=== PATIENT | male | born 1945 | race Caucasian/White ===

== ENCOUNTER 2017-05-09 21:38 | Emergency (ER) | payer OTHER ==
[~2017-05-09] VITALS: Ht 162.6 cm; Wt 59.5 kg
[~2017-05-09 21:38] MED LIST: ACET500C35; ALBU0.5N2 NEB; ASCO10003 PO; ASPEC81 PO; B-COTAB18 PO; CMBIN INH; CRDCD180 PO; LORA-741 PO; LOSA1TAB38 PO; OFLO0.3S OP; OMEGCAP2 PO; PRED1SUS3 OPL; SENN-65 PO; SYMIN160 INH; TRAM-10 PO
[2017-05-09 21:44] VITALS: TEMP 36.7; Ht 162.6 cm; Wt 59.5 kg
[2017-05-09] MEDS ORDERED: ALUMINUM/MAGNESIUM SUSP 30 ML UDC PO STA (21:58)
[2017-05-09] MEDS ORDERED: LIDOCAINE HCL 2% VISC SOLN 20 ML UDC PO STA (21:58)
[2017-05-09] MEDS ORDERED: ASPI81TA28 PO (22:09)
[2017-05-09] MEDS ORDERED: ADVIN25/60 INH (22:11)
[2017-05-09] MEDS ORDERED: DILT-113 PO (22:12)
[2017-05-09] MEDS ORDERED: IPRA1AER2 INH (22:14)
[2017-05-09] MEDS ORDERED: DOCU-105 PO (22:21)
[2017-05-09] MEDS ORDERED: LINA1CAP PO (22:22)
[2017-05-09] MEDS ORDERED: DICY20TA10 PO (22:23)
[2017-05-09] MEDS ORDERED: DILT180C96 PO (22:25)
--- NOTE | 2017-05-09 22:41 | DIAGNOSTIC IMAGING REPORT ---
SINGLE VIEW CHEST CLINICAL HISTORY: Atypical chest pain. FINDINGS: An AP, portable, upright chest radiograph is compared to study dated 12/30/2014. The examination is degraded by portable technique and patient rotation. The cardiomediastinal silhouette is unremarkable. There is atherosclerotic calcification of the thoracic aorta. The lungs and pleural spaces are clear. No pneumothorax is seen. The skeletal structures are osteopenic. There are healed bilateral rib fractures. Chronic posttraumatic change is seen in the left humeral shaft. IMPRESSION: No acute cardiopulmonary abnormality. Electronically signed by: Brandan Anaya M.D. 05/09/2017 10:40 PM Dictated Date/Time: 05/09/2017 10:37 PM
[2017-05-09 22:42] VITALS: O2SAT 98
[2017-05-09 22:51] LABS: BASO % 0.2 %; BASO ABS # 0.01 K/uL (0-0.2); COMPLETE YES; EOS % 2.9 %; HEMATOCRIT 43.4 % (42-52); IG% 0.2 %; LYMPH % 17.3 %; LYMPH ABS # 1.06 K/uL (1.2-3.4); MEAN CELL VOLUME 94.8 fL (80-100); MEAN CORPUSCULAR HEMOGLOBIN 32.8 pg (25-34); MEAN CORPUSCULAR HGB CONC 34.6 g/dl (32-36); MEAN PLATELET VOLUME 7.9 fL (7.4-10.4); MONO % 10.9 %; NEUT % 68.5 %; PLATELET COUNT 238 K/uL (130-400); RED BLOOD COUNT 4.58 M/uL (4.7-6.1); WHITE BLOOD COUNT 6.14 K/uL (4.8-10.8)
[2017-05-09 23:08] LABS: ALT/SGPT 18 U/L (12-78); BLOOD UREA NITROGEN 8 mg/dl (7-18); BUN/CREATININE RATIO 8.5 (10-20); CALCIUM 8.7 mg/dl (8.5-10.1); CARBON DIOXIDE 22 mmol/L (21-32); CHLORIDE 111 mmol/L (98-107); CREATININE 0.93 mg/dl (0.60-1.40); GLUCOSE 146 mg/dl (70-99); POTASSIUM 3.7 mmol/L (3.5-5.1); SODIUM 143 mmol/L (136-145)
[2017-05-09 23:13] LABS: ALKALINE PHOSPHATASE 57 U/L (45-117); AST/SGOT 14 U/L (15-37)
[2017-05-09] MEDS ORDERED: PANTOprazole SOD 40 MG TAB PO STA (23:22)
[2017-05-10 02:04] VITALS: BP 172/90; PULSE 77; O2SAT 96
[2017-05-10] MEDS ORDERED: PANTOprazole SOD 40 MG TAB ONE (02:14)
[2017-05-10] MEDS ORDERED: PANT40TA PO (02:50)
--- NOTE | 2017-05-10 05:11 | EMERGENCY ROOM VISIT NOTE ---
History First contact with patient: 21:52 Chief Complaint: FOOD BOLUS Stated Complaint: FEELS LIKE SOMETHING IS STUCK IN THROAT, PHLEM Nursing Triage Summary: Patient ambulatory to triage, states "It feels like something is stuck in my throat. It only happens in the evenings. I do have heartburn and acidity. It has been going on for the last three days. I thought I'd better do something about it." Patient reports that 3-4 hours after eating, the sensation develops. Patient denies any vomiting. Patient is unsure if he is able to swallow his spit. History of Present Illness The patient is a 71 year old male who presents to the Emergency Room with complaints of discomfort in his throat for the past 3 nights after eating dinner. Patient states it feels like something is stuck in there but is able to swallow. Patient denies chest pain, dyspnea, fever, chills, cough, congestion, black or blood in the stool, excessive alcohol use. Patient quit smoking 3 years ago. No prior heart disease. In endoscopy 1 year ago and was normal per patient. Review of Systems See HPI for pertinent positives & negatives. A total of 10 systems reviewed and were otherwise negative. Past Medical/Surgical History Medical Problems: (1) History of rectal cancer (2) Incisional hernia (3) Partial obstruction of small bowel (4) Secondary malignant neoplasm of retroperitoneum Family History FHx: cancer Hypertension Social History Smoking Status: Former Smoker Marital Status: Housing Status: lives with significant other Occupation Status: retired Current/Historical Medications Scheduled Aspirin (Aspirin Ec), 81 MG PO DAILY B-Complex Vitamins (Vitamin B Complex), 1 TAB PO QAM Dicyclomine Hcl (Dicyclomine Hcl), 20 MG PO BID Diltiazem Hcl Coated Beads (Diltiazem Cd), 360 MG PO QAM Docusate Sodium (Dulcolax Stool Softener), 3 CAP PO HS Fluticasone Prop/Salmeterol (Advair Diskus 250/50 60 Dose), 1 PUFF INH BID Linaclotide (Linzess), 145 MCG PO DAILY Losartan Potassium (Cozaar), 100 MG PO QAM Aurora-3 Fatty Acids (Fish Oil), 1 CAP PO QAM Pantoprazole (Protonix), 40 MG PO DAILY Senna/Docusate Sod (Senokot S), 10 TABS PO HS PRN Scheduled PRN Ipratropium-Albuterol (Combivent Respimat), 1 PUFF INH Q4H PRN for Shortness of Breath Lorazepam (Ativan), 0.5 MG PO Q6H PRN for Anxiety Tramadol (Ultram), 50 MG PO Q8H PRN for Pain Allergies Coded Allergies: Morphine (Verified Adverse Reaction, Severe, "STOPPED RESPONDING", 05/09/17 ) Physical Exam Vital Signs Date Time Temp Pulse Resp B/P (MAP) Pulse Ox O2 Delivery O2 Flow Rate FiO2 05/10/17 02:04 77 16 172/90 96 Room Air 05/09/17 23:32 93 18 135/84 96 Room Air 05/09/17 22:56 89 05/09/17 22:50 89 20 149/80 98 Room Air 05/09/17 22:42 98 Room Air 05/09/17 22:42 98 Room Air 05/09/17 21:44 36.7 107 18 148/89 95 Room Air 05/09/17 21:44 95 Pain Rating (0-10): 2.0 Physical Exam VITALS: Vitals are noted on the nurse's note and reviewed by myself. Vital signs hypertensive GENERAL: Pleasant male, in no acute distress, nondiaphoretic, well-developed well-nourished. SKIN: The skin was without rashes, erythema, edema, or bruising. There is no tenting of the skin. Capillary reflex less than 2 seconds. HEAD: Normocephalic atraumatic. EARS: External auditory canals clear, tympanic membranes pearly penn without erythema or effusion bilaterally. EYES: Pupils equal round and reactive to light and accommodation. Conjunctivae without injection, sclerae without icterus. Extraocular movements intact. NOSE: Patent, turbinates without inflammation or discharge. MOUTH: Mucous membranes moist. Pharynx without erythema or exudate. Uvula midline. Airway patent. Tongue does not deviate. NECK: Supple without nuchal rigidity. No lymphadenopathy. No thyromegaly. Cervical spine is nontender. No JVD. HEART: Regular rate and rhythm LUNGS: Clear to auscultation bilaterally without wheezes, rales or rhonchi. No dullness to percussion. No retractions or accessory muscle use. ABDOMEN: Positive bowel sounds x 4. Normal tympanic percussion. Soft, nontender, without masses or organomegaly. Verma sign negative. No guarding or rebound tenderness. MUSCULOSKELETAL: No muscle atrophy, erythema, or edema noted. NEURO: Patient was alert and oriented to person place and time. Normal sensation to light and sharp touch. No focal neurological deficits. Medical Decision & Procedures Laboratory Results 05/09/17 22:40 Red Blood Count 4.58, Mean Corpuscular Volume 94.8, Mean Corpuscular Hemoglobin 32.8, Mean Corpuscular Hemoglobin Concent 34.6, Mean Platelet Volume 7.9, Neutrophils (%) (Auto) 68.5, Lymphocytes (%) (Auto) 17.3, Monocytes (%) (Auto) 10.9, Eosinophils (%) (Auto) 2.9, Basophils (%) (Auto) 0.2, Neutrophils # (Auto ) 4.21, Lymphocytes # (Auto) 1.06, Monocytes # (Auto) 0.67, Eosinophils # (Auto ) 0.18, Basophils # (Auto) 0.01 05/09/17 22:40 Test 05/09/17 22:40 05/10/17 02:05 White Blood Count 6.14 K/uL (4.8-10.8) Red Blood Count 4.58 M/uL (4.7-6.1) Hemoglobin 15.0 g/dL (14.0-18.0) Hematocrit 43.4 % (42-52) Mean Corpuscular Volume 94.8 fL (80-100) Mean Corpuscular Hemoglobin 32.8 pg (25-34) Mean Corpuscular Hemoglobin Concent 34.6 g/dl (32-36) Platelet Count 238 K/uL (130-400) Mean Platelet Volume 7.9 fL (7.4-10.4) Neutrophils (%) (Auto) 68.5 % Lymphocytes (%) (Auto) 17.3 % Monocytes (%) (Auto) 10.9 % Eosinophils (%) (Auto) 2.9 % Basophils (%) (Auto) 0.2 % Neutrophils # (Auto) 4.21 K/uL (1.4-6.5) Lymphocytes # (Auto) 1.06 K/uL (1.2-3.4) Monocytes # (Auto) 0.67 K/uL (0.11-0.59) Eosinophils # (Auto) 0.18 K/uL (0-0.5) Basophils # (Auto) 0.01 K/uL (0-0.2) RDW Standard Deviation 46.3 fL (36.4-46.3) RDW Coefficient of Variation 13.5 % (11.5-14.5) Immature Granulocyte % (Auto) 0.2 % Immature Granulocyte # (Auto) 0.01 K/uL (0.00-0.02) Anion Gap 10.0 mmol/L (3-11) Est Creatinine Clear Calc Drug Dose 60.2 ml/min Estimated GFR () 94.7 Estimated GFR (Non- 81.7 BUN/Creatinine Ratio 8.5 (10-20) Calcium Level 8.7 mg/dl (8.5-10.1) Total Bilirubin 0.2 mg/dl (0.2-1) Direct Bilirubin 0.1 mg/dl (0-0.2) Aspartate Amino Transf (AST/SGOT) 14 U/L (15-37) Alanine Aminotransferase (ALT/SGPT) 18 U/L (12-78) Alkaline Phosphatase 57 U/L (45-117) Troponin I < 0.015 ng/ml (0-0.045) Total Protein 6.1 gm/dl (6.4-8.2) Albumin 2.8 gm/dl (3.4-5.0) Bedside Troponin I < 0.030 ng/ml (0-0.045) Medications Administered Medications (Trade) Dose Ordered Sig/Nela Route Start Time Stop Time Status Last Admin Dose Admin Lidocaine HCl (Viscous Lidocaine 2% Soln) 10 ml NOW STAT PO 05/09/17 21:58 05/09/17 22:00 DC 05/09/17 22:47 10 ML Al Hydroxide/Mg Hydroxide (Maalox Susp) 30 ml NOW STAT PO 05/09/17 21:58 05/09/17 22:00 DC 05/09/17 22:47 30 ML ED Course Prior records/ancillary studies reviewed. Triage Nursing notes reviewed. Additional history obtained from family. The patient's history was concerning for throat discomfort Differential diagnosis: Etiologies such as esophagitis, GERD, cardiac ischemia, aortic dissection, pulmonary embolism, pneumonia, pneumothorax, musculoskeletal, infections, pericarditis, myocarditis, esophageal rupture, gastrointestinal, as well as others were entertained. Physical examination: As above. ER treatment provided: GI cocktail, Protonix On reassessment the patient felt better. Diagnostic interpretation by me: The electrocardiogram was negative for pathologic change. Normal sinus, normal intervals, no acute ST-T wave changes. Impression normal sinus rhythm interpreted by myself The labs revealed 2 troponins that are negative 2 hours apart Imaging studies: Chest x-ray as above CLINICAL HISTORY: Atypical chest pain. FINDINGS: An AP, portable, upright chest radiograph is compared to study dated 12/30/2014. The examination is degraded by portable technique and patient rotation. The cardiomediastinal silhouette is unremarkable. There is atherosclerotic calcification of the thoracic aorta. The lungs and pleural spaces are clear. No pneumothorax is seen. The skeletal structures are osteopenic. There are healed bilateral rib fractures. Chronic posttraumatic change is seen in the left humeral shaft. IMPRESSION: No acute cardiopulmonary abnormality. Electronically signed by: Brandan Anaya M.D. 05/09/2017 10:40 PM Exam and history seem consistent with esophagitis. Patient felt much better after being medicated as above. His symptoms had resolved. He was advised to follow-up with his GI doctor and family care for further workup. He may need an updated EGD. He was advised take Protonix as directed and avoid acidic foods. He was advised to return to the ER immediately for chest pain, difficulty breathing, black or blood in the stool, worsening signs or symptoms or as needed. Patient had a normal EKG in 2 troponins that were negative that were 2 hours apart.By the evaluation outlined above emergent etiologies such as cardiac ischemia, aortic dissection, pulmonary embolism, pneumonia, pneumothorax , infections, pericarditis, myocarditis, gastrointestinal, as well as others were deemed relatively unlikely. The pt informed about the findings as listed above. All questions were answered and pleased with the treatment. Return instructions were outlined and the patient was discharged in stable condition. Outpatient prescription management: Protonix Referral: The patient was referred back to GI and primary care physician for follow-up in 2 to 3 days for a recheck of the current condition. Case reviewed with my attending. Medical Decision As above Patient was found to have an elevated blood pressure and was referred to the family care for recheck and for possible further treatment. I attest that I have personally reviewed the patient's medications. Impression Primary Impression: Esophagitis Departure Information Dispostion Home / Self-Care Condition GOOD Prescriptions Pantoprazole (Protonix) 40 Mg Tab 40 MG PO DAILY for 14 Days, #14 TAB Prov: Franca Haro .SRIKANTH 05/10/17 Forms WORK / SCHOOL INSTRUCTIONS, HOME CARE DOCUMENTATION FORM, IMPORTANT VISIT INFORMATION Patient Instructions Esophagitis, My [facility] Additional Instructions Protonix 40 m tablet daily for next 2 weeks. Take this on an empty stomach. Try Maalox or Zantac for breakthrough symptoms for reflux. Avoid large meals. Avoid acidic foods. Rest and drink plenty of fluids as tolerated. Continue current medications. Avoid strenuous activities and anything that worsens your pain. Resume normal activities once your symptoms resolve. Return to the ER immediately for worsening or persistent chest pain, abdominal pain, black or blood in your stools, vomiting, fevers, chest pains, difficulty breathing, worsening of your condition, or as needed. Follow up with your primary physician and GI doctor in 2-3 days for a recheck of your current condition.
== END 2017-05-10 02:50 | disposition home or self-care (01) ==
LOC: C.EDB 21:41 → C.EDC 05-10 02:50
DX: K20.9 Esophagitis, unspecified (principal); Z82.49 Family history of ischemic heart disease and other diseases of the circulatory system; Z87.891 Personal history of nicotine dependence; Z79.82 Long term (current) use of aspirin

== ENCOUNTER → 2017-09-12 | Outpatient (CLI) | payer OTHER ==
[~2017-09-12] MED LIST changes: -ACET500C35; +ADVIN25/60 INH; -ALBU0.5N2 NEB; -ASCO10003 PO; -ASPEC81 PO; +ASPI81TA28 PO; -CMBIN INH; -CRDCD180 PO; +DICY20TA10 PO; +DILT180C58 PO; +DOCU-105 PO; +IPRA1AER2 INH; +LINA1CAP PO; -OFLO0.3S OP; -PRED1SUS3 OPL; -SYMIN160 INH
--- NOTE | 2017-09-12 09:33 | DIAGNOSTIC IMAGING REPORT ---
GI SERIES W/O KUB CLINICAL HISTORY: 72 years-old Male presenting with NAUSEA. TECHNIQUE: A standard air contrast upper GI series was performed. Spot images of the esophagus and stomach were obtained in multiple obliquities both upright and prone. COMPARISON: CT from 10/09/2011. FINDINGS: The patient swallowed barium without difficulty. The mid to distal esophagus demonstrates a focal outpouching consistent with diverticulum. This has a relatively wide neck in comparison to the overall width and height of the diverticulum. The diverticulum is located at the level of the left atrium. Tertiary contractions in intraesophageal reflux were noted during the examination, evidence of esophageal dysmotility. Gastroesophageal reflux also noted. Small hiatal hernia. No mucosal mass lesion is apparent. The stomach and proximal small bowel are normal in appearance. Fluoroscopy dosage (mGy): Not available. Fluoroscopy time: 1.2 minutes. Number of fluoroscopic spot images: 30. IMPRESSION: 1. 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 This would be a somewhat characteristic location for a traction diverticulum, however, no evidence of mediastinal fibrotic changes were evident on prior CT in 2010. A chest CT could be obtained if clinically indicated. Alternatively, this may represent a somewhat high location for a distal esophageal pulsion diverticulum. 2. Esophageal dysmotility. 3. Small hiatal hernia and gastroesophageal reflux. Electronically signed by: Jace Jennings M.D. 09/12/2017 9:32 AM Dictated Date/Time: 09/12/2017 9:29 AM
== END | disposition home or self-care (01) ==
LOC: C.RAD 08:29
PROVIDERS: ATTEND Nurse Practitioner Family
DX: K22.4 Dyskinesia of esophagus (principal); K44.9 Diaphragmatic hernia without obstruction or gangrene; K21.9 Gastro-esophageal reflux disease without esophagitis

== ENCOUNTER 2018-03-10 09:23 | Day surgery (SDC) | payer OTHER ==
[2018-03-03 11:12] VITALS: BMI 21.0
[~2018-03-10] VITALS: Ht 162.6 cm; Wt 56.4 kg
[~2018-03-10 09:23] MED LIST changes: +ATROPINE SULFATE 0.1 MG/ML 5ML SYR IV PRN; -B-COTAB18 PO; +CEFAZOLIN 2000MG IV PUSH 15 ML IV SCH; -DICY20TA10 PO; -DILT180C58 PO; +DILT180C96 PO; -DOCU-105 PO; +EpHEDrine SULFATE INJ 50 MG/ML AMP IV PRN; +FENTANYL CITRATE INJ 50 MCG/1 ML 2 ML VIAL IV PRN; +LACTATED RINGER'S 1000ML 1,000 ML IV SCH; -OMEGCAP2 PO; +ONDANSETRON INJ 2 MG/ML 2 ML VIAL IV PRN; +PHENYLEPHRINE 100MCG/ML 5ML SYR IV PRN
[2018-03-10 09:40] VITALS: BP_SYST 163; BP_SYST 175; BP_DIAS 111; PULSE 99; TEMP 37; O2SAT 96; Ht 162.6 cm; Wt 56.4 kg
[2018-03-10] MEDS ORDERED: ONDA-170 PO (10:08)
--- NOTE | 2018-03-10 10:51 | History & Physical Bridge Note ---
H&P Re-Evaluation Bridge Note: I have examined the patient, reviewed the History & Physical and in the interval since the performance of the History & Physical I have noted the following changes of clinical significance: No changes noted
[2018-03-10] MEDS ORDERED: FENTANYL CITRATE INJ 50 MCG/1 ML 2 ML VIAL ONE ×2 (12:11→14:34)
[2018-03-10] MEDS ORDERED: MIDAZOLAM HCL 1 MG/ML 2ML VIAL ONE (12:11)
[2018-03-10] MEDS ORDERED: CEFAZOLIN SOD 1 GM VIAL ONE (12:29)
[2018-03-10] MEDS ORDERED: HEPARIN SOD (PORCINE) 1000 UNIT/ML 10 ML VIAL ONE (12:29)
[2018-03-10] MEDS ORDERED: CONRAY 60% 50 ML VIAL ONE (12:29)
[2018-03-10] MEDS ORDERED: BUPIVACAINE 0.5 % 5 MG/1 ML MPF 30ML VIAL ONE (12:31)
[2018-03-10] MEDS ORDERED: PROPOFOL IV EMULSION 10 MG/ML 20 ML VIAL ONE (12:34)
[2018-03-10] MEDS ORDERED: LIDOCAINE HCL 2% 2 ML VIAL (20MG/ML) ONE (12:34)
[2018-03-10] MEDS ORDERED: ROCURONIUM BROMIDE 10 MG/ML 5 ML VIAL ONE (12:35)
[2018-03-10] MEDS ORDERED: DEXAMETHASONE SOD INJ 4 MG/ML VIAL ONE (12:36)
[2018-03-10] MEDS ORDERED: ONDANSETRON INJ 2 MG/ML 2 ML VIAL ONE (12:36)
[2018-03-10] MEDS ORDERED: NEOSTIGMINE METHYLSULFATE 5 MG/5 ML SYR ONE (13:15)
[2018-03-10] MEDS ORDERED: GLYCOPYRROLATE INJ 0.2 MG/ML VIAL ONE (13:15)
[2018-03-10] MEDS ORDERED: FLOSEAL HEMOSTATIC MATRIX 10ML TOP ONE (13:50)
[2018-03-10] MEDS ORDERED: SODIUM CHLORIDE 0.9% 1000ML 1,000 ML IV SCH (14:23)
--- NOTE | 2018-03-10 14:23 | [facility] Post Operative Brief Note ---
Immediate Operative Summary Operative Date March 10, 2018. Pre-Operative Diagnosis calculus of gallbladder, adenomyomatosis Post-Operative Diagnosis same as preop Procedure(s) Performed Laparoscopic Cholecystectomy Surgeon Dr. Brenton Urena Bridge Repairer Surgeon(s) None Estimated Blood Loss 30ML Findings Consistent with Post-Op Diagnosis Specimens Permanent Solution: A.)Gallbladder and Contents Anesthesia Type General Complication(s) none Disposition Disposition: Recovery Room / PACU
--- NOTE | 2018-03-10 14:27 | Discharge Instructions ---
Discharge Instructions Date of Service March 10, 2018. Admission Reason for Admission: Calculus Of Gallbladder Discharge Discharge Diagnosis / Problem: Same Discharge Goals Goal(s): Decrease discomfort Activity Recommendations Activity Limitations: per Instructions/Follow-up section Lifting Limitations: no more than 10 pounds (for 2 weeks) Shower/Bathe: tomorrow (shower only) . Instructions / Follow-Up Instructions / Follow-Up Post-Surgical ~ Discharge Instructions Activity Recommendations: - lifting limitation: (10 pounds for 2 weeks), - exercise/sex/sports limit: (nonstrenuous for 2 weeks), - driving or machine use limit: (none for 1 week), - Shower/bathe limit: (may shower beginning tomorrow) Diet: - Resume previous diet SPECIAL CARE INSTRUCTIONS: - May shower in 24 hours. Let water run over area and pat dry. - Leave steri strips on for one week. - Call the surgeon's office with any questions or concerns - - (ex. temperature higher than 101 degrees F, excessive bleeding or pain). MEDICATIONS: - Resume previous medications unless instructed otherwise by your surgeon. - Ibuprofen 600 mg every 6 hours with food - Newborn (hydrocodone/APAP) 1 every 4 hours, as needed for pain FOLLOW UP VISIT: - If not already scheduled, please call the office to schedule a two week follow-up appointment. Office number Current Hospital Diet Patient's current hospital diet: Discharge Diet Recommended Diet: Regular Diet Procedures Procedures Performed: Laparoscopic Cholecystectomy Pending Studies Studies pending at discharge: yes List of pending studies: Pathology Medical Emergencies . Who to Call and When: Medical Emergencies: If at any time you feel your situation is an emergency, please call 911 immediately. . Non-Emergent Contact Non-Emergency issues call your: Primary Care Provider, Surgeon Call Non-Emergent contact if: your pain is worsening, wound has increased redness, wound has increased pain . "Provider Documentation" section prepared by Brenton Urena. .
[2018-03-10] MEDS ORDERED: HYDROCODONE/ACETAMIN 5/325MG TAB PO PRN (14:30)
[2018-03-10] MEDS ORDERED: HYDROmorphone INJ 0.5 MG/0.5 ML SYR IV PRN (14:30)
[2018-03-10] MEDS ORDERED: ONDANSETRON INJ 2 MG/ML 2 ML VIAL IV PRN (14:30)
[2018-03-10] MEDS: HYDROmorphone INJ 0.5 MG/0.5 ML SYR IV PRN ×2 (15:15→15:20)
--- NOTE | 2018-03-10 15:30 | Anesthesiology Progress Note ---
Anesthesia Post Op Note Date & Time March 10, 2018 at 15:30 Vital Signs Vital Signs Past 12 Hours Date Time Temp Pulse Resp B/P (MAP) Pulse Ox O2 Delivery O2 Flow Rate FiO2 03/10/18 15:25 71 20 149/81 94 Room Air 03/10/18 15:15 71 22 136/65 96 Room Air 03/10/18 15:05 73 16 138/69 94 Room Air 03/10/18 14:55 70 22 158/89 96 Room Air 03/10/18 14:45 67 15 152/84 100 Oxymask 10 03/10/18 14:35 67 13 168/82 100 Oxymask 10 03/10/18 14:28 36.9 71 20 177/91 100 Oxymask 10 03/10/18 09:40 37 99 20 175/111 (132) 96 Room Air 163/111 (128) Notes Mental Status: alert / awake / arousable, participated in evaluation Pt Amnestic to Procedure: Yes Nausea / Vomiting: adequately controlled Pain: adequately controlled Airway Patency, RR, SpO2: stable & adequate BP & HR: stable & adequate Hydration State: stable & adequate Anesthetic Complications: no major complications apparent
[2018-03-10 15:42] VITALS: BP 144/68; PULSE 70; TEMP 36.6; O2SAT 93
[2018-03-10 16:15] VITALS: BP 154/67; PULSE 69; TEMP 36.6; O2SAT 93
[2018-03-10 16:45] VITALS: BP 154/77; PULSE 68; TEMP 36.6; O2SAT 93
--- NOTE | 2018-03-10 17:43 | OPERATIVE REPORT ---
DATE OF OPERATION: 03/10/2018 PREOPERATIVE DIAGNOSES: Cholelithiasis, adenomyomatosis of the gallbladder. POSTOPERATIVE DIAGNOSES: Same plus intraabdominal adhesions. PROCEDURE: Laparoscopic cholecystectomy with laparoscopic lysis of adhesions. SURGEON: Brenton Urena MD FINDINGS: The patient had previous abdominal surgery on 4 occasions. There were adhesions to the anterior abdominal wall of the omentum. They were fairly flimsy. There were some adhesions to the undersurface of the falciform as well. The right upper quadrant was free of adhesion. The left upper quadrant was free of adhesion. The gallbladder was not dilated. The cystic duct was not dilated. There were no adhesions to the gallbladder. The liver was of normal size and contour, and the visible bowel appeared normal. TECHNIQUE: The patient was given a general anesthetic, and the area was prepped and draped in the usual sterile fashion. A transverse incision was made in the left upper midline area. This was carried down through the subcutaneous tissue to the fascia, which was grasped with 2 Dominique clamps and incised between. The muscle was split, and the posterior sheath was grasped and incised. The peritoneum was grasped and incised, and the introducer was placed bluntly. The abdomen was then insufflated to a pressure of 15 mmHg with carbon dioxide. The camera was passed, and the right upper quadrant was inspected. There were no adhesions in the right upper quadrant and so the anterior axillary introducer was placed under direct vision. Using that, the adhesions to the anterior abdominal wall superior to the umbilicus were taken down using sharp dissection under direct vision until I had all of the adhesions down. There was a small hernia below the umbilicus. The lower introducer was then placed through a skin incision superior into the left of the umbilicus, which avoided all of the adhesions. The camera was passed through there, and there were adhesions to the undersurface of the falciform, which were taken down using sharp dissection. These were easily seen. They were taken down completely. That freed the entire upper abdomen. The midclavicular introducer was then placed under direct vision. Traction was placed on the gallbladder beginning at the infundibulum. The peritoneum was opened and peeled down toward the common bile duct. The infundibulum was dissected away from the liver on the lateral side and then on the medial side. An additional connective tissue and fatty tissue was peeled off the anterior, lateral, and medial surfaces of the cystic duct allowing me to visualize that. I was then able to perform dissection of the infundibulum away from the liver on the posterior side, which allowed me to visualize the posterior side of the cystic duct and confidently identify the cystic duct gallbladder junction. Further dissection was then carried out in the triangle of Calot where the cystic artery was identified and isolated in a similar fashion. Two clips were placed on the proximal cystic duct, one near its junction with the gallbladder and was divided. Two clips were placed on the proximal cystic artery, one near the gallbladder and it was divided. The gallbladder was then peeled off the liver bed. There was not a good plane between the gallbladder and the liver. The gallbladder dissection was completed and then placed into the Endobag and brought out through the upper midline incision. That introducer was replaced. Liver edge was elevated, and because of the significant raw surface of the liver and the gallbladder bed, there was oozing. This was irrigated and then cauterized across the entire gallbladder bed of the liver until there was no further oozing. The subdiaphragmatic and subhepatic spaces were irrigated and the irrigation removed. Gallbladder bed of the liver was again inspected, and there was no further bleeding. The gallbladder bed of the liver was filled with FloSeal. The liver edge fell back into its anatomic position, and the gas was allowed to escape. The lower incision fascia and the upper midline incision fascia were closed with interrupted 0 Vicryl and the skin of all the incisions was closed with 4-0 Monocryl in either an interrupted or running subcuticular fashion. Skin was anesthetized with 0.5% Marcaine. The skin was cleansed and dried, benzoin placed, and Steri-Strips applied. Estimated blood loss was 25 mL. Sponge, needle, and instrument counts were correct x2 prior to closure. The patient tolerated the surgical procedure without complication and was transferred to recovery. I attest to the content of the Intraoperative Record and any orders documented therein. Any exception s are noted below.
[2018-03-10 17:45] VITALS: BP 145/82; PULSE 65; TEMP 36.4; O2SAT 93
== END 2018-03-10 17:50 | disposition home or self-care (01) ==
LOC: C.ACU 09:23
PROVIDERS: ATTEND Surgery
DX: K81.1 Chronic cholecystitis (principal); K82.8 Other specified diseases of gallbladder; K66.0 Peritoneal adhesions (postprocedural) (postinfection); C20 Malignant neoplasm of rectum; J45.909 Unspecified asthma, uncomplicated; J44.1 Chronic obstructive pulmonary disease with (acute) exacerbation; G47.30 Sleep apnea, unspecified; I10 Essential (primary) hypertension; F41.9 Anxiety disorder, unspecified; F32.9 Major depressive disorder, single episode, unspecified; Z87.891 Personal history of nicotine dependence; Z88.5 Allergy status to narcotic agent; Z90.89 Acquired absence of other organs; Z98.890 Other specified postprocedural states; Z79.899 Other long term (current) drug therapy; Z79.82 Long term (current) use of aspirin; Z82.49 Family history of ischemic heart disease and other diseases of the circulatory system

== ENCOUNTER 2025-04-17 15:08 | Inpatient (IN) ==
--- NOTE | 2025-04-17 15:49 | Emergency Department Note ---
Impression & Plan Acute UTI, Weakness, Rhabdomyolysis ED Provider Note Provider: Leonid Hazel MD CHIEF COMPLAINT: Weakness, fatigue, chronic abdominal pain, fever HISTORY OF PRESENT ILLNESS: Patient is a 79-year-old gentleman history of hypertension, diabetes, asthma/COPD, neuropathy, GERD, Schatzki ring, gastritis, and colorectal cancer presenting here today stating last 2 days has been feeling a bit weak. Developed fevers of 102 and states today he was too tired Lamantia get out of bed but then just laid on the floor unable to get up. Did contact his called the ambulance who brought him here. No significant falls. Decreased intake. Some mild chronic abdominal pain but this is unchanged according to him. No significant chest pain or shortness of breath. Maybe some myalgias but no severe headache or significant cough cold symptoms reported. Has not taken any medicines at home and decreased intake. No nausea vomiting or diarrhea reported. PAST MEDICAL HISTORY: As noted above MEDICATIONS: Reviewed home medication list. SOCIAL HISTORY: Lives at home with , former smoker PHYSICAL EXAM: GENERAL: alert and oriented in no acute distress on stretcher fatigued in appearance Head: normocephalic and atraumatic EYES: No injection, discharge or icterus. EOMI. NECK: Trachea midline. Good range of motion ENT: Mucous membranes pink and moist. LUNGS: Airway patent. No retractions. Breath sounds clear HEART: Regular rate and rhythm. No chest wall tenderness ABDOMEN: Soft and non-tender, without guarding or rebound. SKIN: Acyanotic, warm, dry, without rashes EXTREMITIES: Without significant swelling noted on exam and no cords appreciated in the calves but may be some mild diffuse muscular tenderness. Soft compartments. NEUROLOGICAL: No focal deficits. No aphasia. No facial droop or slurred speech. EK bpm normal sinus rhythm. No PVC or PAC. No acute ST segment elevation or depression with QTc of 474. CONTINUOUS CARDIAC MONITORING: was ordered and showed a heart rate of 80s-90s bpm in normal sinus rhythm Patient's laboratory studies and imaging reviewed. Differential includes Infection, dehydration, metabolic abnormality, hypo/hyperglycemia, electrolyte disturbance, anemia, hypoxia, cardiac sources, neurologic, as well as other pathologies. IMPRESSION/MEDICAL DECISION MAKING: Patient with fever at home reportedly and generalized weakness and myalgias. Broad workup pursued including with infectious etiologies. Does not seem focal on exam but a CT of the head was obtained as well as CT abdomen pelvis. [id number] blood work showed evidence of some creatinine elevation so noncontrast CT scan ordered. No real respiratory symptoms ordered and chest x- ray reassuring per radiology. Given a liter of IV fluid here. Blood work here without significant anemia leukocytosis of 14.7. No severe electrolyte abnormalities with creatinine 1.6 on formal labs. Negative respiratory viral panel. CK elevated almost 7000 troponin returns at 37 6 and a procalcitonin of 1.18. CT head and chest abdomen pelvis per radiology without acute intracranial abnormality and findings of constipation and bilateral paramedian fat-containing hernias. Radiologist also notes a density in the mesentery spiculated right sided mass possibly scarring or possibly a panniculitis with residual tumor. Patient states more chronic his abdominal issues. UA returns grossly positive for infection. Patient has urinated several times here and I doubt acute urinary retention. He was covered with cefepime for antibiotics. Do not believe the abdominal findings represent acute infection or tumor. In any event he was given additional IV fluid for a total of 2 L per rhabdomyolysis and dehydration (more than 30 mL/kg of IV fluid). Will bring him in for further inpatient care. DIAGNOSIS: Weakness, rhabdomyolysis, acute UTI, sepsis DISPOSITION: Hospitalist will evaluate Patient was agreeable with this plan. 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) Social History Smoking Status: Never smoker Feels Safe at Home: Yes Allergies Allergies Allergy/AdvReac Type Severity Reaction Status Date / Time morphine AdvReac Severe PT HAD TOO Verified 04/17/25 17:06 MUCH POST OP-WAS PUT IN ICU FOR MONITORING Home Meds Home Medications Medication Instructions Recorded Confirmed aspirin 81 mg tablet,delayed 81 mg PO DAILY 04/17/25 04/17/25 release cholecalciferol (vitamin D3) 1,250 1,250 mcg PO WK 04/17/25 04/17/25 mcg (50,000 unit) capsule dicyclomine 10 mg capsule 10 mg PO BID PRN ABD CRAMPING 04/17/25 04/17/25 diltiazem HCl 180 mg 360 mg PO QAM 04/17/25 04/17/25 capsule,extended release 24 hr (Cartia XT) ferrous sulfate 325 mg (65 mg 325 mg PO WK 04/17/25 04/17/25 iron) tablet (iron) gabapentin 300 mg capsule 300 mg PO TID 04/17/25 04/17/25 hydrochlorothiazide 25 mg tablet 25 mg PO QAM 04/17/25 04/17/25 hydroxyzine HCl 25 mg tablet 12.5 - 25 mg PO Q6H PRN Anxiety 04/17/25 04/17/25 losartan 100 mg tablet 100 mg PO DAILY 04/17/25 04/17/25 pantoprazole 40 mg tablet,delayed 40 mg PO QAM 04/17/25 04/17/25 release promethazine 12.5 mg tablet 12.5 mg PO Q6H PRN NAUSEA/VOMITING 04/17/25 04/17/25 rosuvastatin 5 mg tablet 5 mg PO QAM 04/17/25 04/17/25 sennosides 8.6 mg capsule (senna) 8.6 mg PO BID 04/17/25 04/17/25 tramadol 50 mg tablet 50 mg PO Q6H PRN PAIN/SEVERE PAIN 04/17/25 04/17/25 Results & Data (ED) Vital Signs Vital Signs - 24 hr 04/17/25 15:15 04/17/25 15:24 04/17/25 15:30 Temperature 37.3 C Temperature Source Oral Pulse Rate 102 H 101 H Pulse Rate [Apical] Pulse Rate from SpO2 Sensor Respiratory Rate 16 27 H Blood Pressure 184/111 H 174/88 H Blood Pressure [Right Arm] Blood Pressure Mean 135 129 Blood Pressure Mean [Right Arm] Pulse Oximetry 96 Oxygen Delivery Method Room Air Sepsis Recent Fever Within 48 Hours Yes Sepsis New/Unexplained Change in Mental Status No Sepsis Action Taken by Nursing No Action Required 04/17/25 15:30 04/17/25 15:30 04/17/25 15:30 Temperature Temperature Source Pulse Rate 102 H Pulse Rate [Apical] Pulse Rate from SpO2 Sensor 97 H Respiratory Rate 19 Blood Pressure 174/88 H 174/88 H Blood Pressure [Right Arm] Blood Pressure Mean 129 129 Blood Pressure Mean [Right Arm] Pulse Oximetry 97 Oxygen Delivery Method Sepsis Recent Fever Within 48 Hours Sepsis New/Unexplained Change in Mental Status Sepsis Action Taken by Nursing 04/17/25 15:31 04/17/25 15:48 04/17/25 15:51 Temperature Temperature Source Pulse Rate 102 H 100 H 103 H Pulse Rate [Apical] Pulse Rate from SpO2 Sensor Respiratory Rate 20 16 18 Blood Pressure Blood Pressure [Right Arm] Blood Pressure Mean Blood Pressure Mean [Right Arm] Pulse Oximetry 96 Oxygen Delivery Method Room Air Sepsis Recent Fever Within 48 Hours Sepsis New/Unexplained Change in Mental Status Sepsis Action Taken by Nursing 04/17/25 16:09 04/17/25 16:54 04/17/25 17:03 Temperature Temperature Source Pulse Rate 96 H 96 H Pulse Rate [Apical] Pulse Rate from SpO2 Sensor 100 H Respiratory Rate 17 Blood Pressure 174/88 H Blood Pressure [Right Arm] Blood Pressure Mean 116 Blood Pressure Mean [Right Arm] Pulse Oximetry 97 Oxygen Delivery Method Sepsis Recent Fever Within 48 Hours Sepsis New/Unexplained Change in Mental Status Sepsis Action Taken by Nursing 04/17/25 17:16 04/17/25 17:16 04/17/25 17:16 Temperature Temperature Source Pulse Rate Pulse Rate [Apical] Pulse Rate from SpO2 Sensor Respiratory Rate Blood Pressure 173/86 H 173/86 H 173/86 H Blood Pressure [Right Arm] Blood Pressure Mean 142 142 142 Blood Pressure Mean [Right Arm] Pulse Oximetry Oxygen Delivery Method Sepsis Recent Fever Within 48 Hours Sepsis New/Unexplained Change in Mental Status Sepsis Action Taken by Nursing 04/17/25 17:16 04/17/25 17:18 04/17/25 17:21 Temperature Temperature Source Pulse Rate 96 H 94 H Pulse Rate [Apical] Pulse Rate from SpO2 Sensor 96 H 94 H Respiratory Rate 14 26 H Blood Pressure 173/86 H Blood Pressure [Right Arm] Blood Pressure Mean 142 Blood Pressure Mean [Right Arm] Pulse Oximetry 96 96 Oxygen Delivery Method Sepsis Recent Fever Within 48 Hours Sepsis New/Unexplained Change in Mental Status Sepsis Action Taken by Nursing 04/17/25 17:27 04/17/25 17:29 04/17/25 17:30 Temperature Temperature Source Pulse Rate 95 H 98 H Pulse Rate [Apical] Pulse Rate from SpO2 Sensor 92 H Respiratory Rate 17 Blood Pressure 154/85 H Blood Pressure [Right Arm] Blood Pressure Mean 119 Blood Pressure Mean [Right Arm] Pulse Oximetry 96 Oxygen Delivery Method Sepsis Recent Fever Within 48 Hours Sepsis New/Unexplained Change in Mental Status Sepsis Action Taken by Nursing 04/17/25 17:30 04/17/25 17:33 04/17/25 17:42 Temperature Temperature Source Pulse Rate 93 H 93 H Pulse Rate [Apical] Pulse Rate from SpO2 Sensor 92 H 95 H Respiratory Rate 14 16 Blood Pressure 154/85 H Blood Pressure [Right Arm] Blood Pressure Mean 119 Blood Pressure Mean [Right Arm] Pulse Oximetry 98 97 Oxygen Delivery Method Sepsis Recent Fever Within 48 Hours Sepsis New/Unexplained Change in Mental Status Sepsis Action Taken by Nursing 04/17/25 17:45 04/17/25 17:51 04/17/25 18:00 Temperature Temperature Source Pulse Rate 94 H 90 Pulse Rate [Apical] Pulse Rate from SpO2 Sensor 92 H Respiratory Rate 19 21 Blood Pressure 148/76 H Blood Pressure [Right Arm] Blood Pressure Mean 95 Blood Pressure Mean [Right Arm] Pulse Oximetry 96 Oxygen Delivery Method Sepsis Recent Fever Within 48 Hours Sepsis New/Unexplained Change in Mental Status Sepsis Action Taken by Nursing 04/17/25 19:00 Temperature Temperature Source Pulse Rate Pulse Rate [Apical] 83 Pulse Rate from SpO2 Sensor Respiratory Rate 16 Blood Pressure Blood Pressure [Right Arm] 136/75 Blood Pressure Mean Blood Pressure Mean [Right Arm] 95 Pulse Oximetry 100 Oxygen Delivery Method Room Air Sepsis Recent Fever Within 48 Hours Sepsis New/Unexplained Change in Mental Status Sepsis Action Taken by Nursing Laboratory Data 04/17/25 15:20 04/17/25 15:20 Lab Results 04/17/25 04/17/25 04/17/25 Range/Units 15:15 15:20 15:28 WBC 14.75 H (4.8-10.8) K/ul RBC 4.42 L (4.70-6.10) M/uL Hgb 11.6 L (14.0-18.0) g/dl POC Hgb (14.0-18.0) g/dl Hct 35.7 L (42.0-52.0) % POC Hct (42-52) % MCV 80.8 (80.0-100.0) fL MCH 26.2 (25.0-34.0) pg MCHC 32.5 (32.0-36.0) g/dL RDW Std Deviation 44.1 (36.4-46.3) fL RDW Coeff of Sara 15.0 H (11.5-14.5) % Plt Count 431 H (130-400) K/uL MPV 8.3 L (9.4-12.4) fL Immature Gran % (Auto) 0.5 % Neut % (Auto) 88.9 % Lymph % (Auto) 4.7 % Tompkins % (Auto) 5.6 % Eos % (Auto) 0.0 % Baso % (Auto) 0.3 % Neut # (Auto) 13.11 H (1.40-6.50) K/uL Lymph # (Auto) 0.69 L (1.20-3.40) K/uL [place] # (Auto) 0.83 H (0.11-0.59) K/uL Eos # (Auto) 0.00 (0.00-0.50) K/uL Baso # (Auto) 0.04 (0.00-0.20) K/uL Immature Gran # (Auto) 0.08 (0.01-0.20) K/uL PT 12.0 (9.0-12.0) Seconds INR 1.1 (0.9-1.1) POC Sodium (135-144) mmol/L Sodium 135 L (136-145) mmol/L POC Potassium (3.3-5.0) mmol/L Potassium 4.0 (3.5-5.1) mmol/L POC Chloride (101-112) mmol/L Chloride 98 (98-107) mmol/L Carbon Dioxide 26 (21-32) mmol/L POC Total CO2 (24-31) mmol/L Anion Gap 11 (3-11) POC Anion Gap (16-25) mmol/L POC BUN (7-18) mg/dl BUN 18 (6-23) mg/dl Creatinine 1.60 H (0.6-1.4) mg/dl POC Creatinine (0.6-1.3) mg/dl Est Cr Clr Drug Dosing 32.0 ml/min eGFR 43.29 BUN/Creatinine Ratio 11.3 (10-20) Glucose 71 (70-99(Fasting)) mg/dl POC Glucose (other) (70-99) mg/dl Lactate (0.4-2.0) mmol/L Calcium 9.1 (8.6-10.3) mg/dl POC Ioniz Calcium Alonzo (1.12-1.32) mmol/l Magnesium 2.0 (1.7-2.4) mg/dl Total Bilirubin 0.7 (0.2-1.0) mg/dl AST 46 H (13-39) U/L ALT 8 (7-52) U/L Alkaline Phosphatase 72 (34-104) U/L Total Creatine Kinase 6952 H (30-223) U/L Troponin I High Sens 37.6 H (0-20) pg/ml Total Protein 6.9 (6.0-8.3) gm/dl Albumin 3.3 L (3.4-5.0) gm/dl Globulin 3.6 (2.5-4.0) gm/dl Albumin/Globulin Ratio 0.9 (0.9-2) Procalcitonin 1.18 H (0-0.5) ng/ml TSH 0.223 L (0.300-4.500) uIu/ml Free T4 1.66 H (0.61-1.60) ng/dl Urine Color Yellow Urine Appearance Clear (Clear) Urine pH 7.5 (4.5-7.5) Ur Specific [place] 1.007 (1.000-1.030) Urine Protein 1+ H (Negative) Urine Glucose (UA) Negative (Negative) Urine Ketones 1+ H (Negative) Urine Blood 3+ H (Negative) Urine Nitrite Negative (Negative) Urine Bilirubin Negative (Negative) Urine Urobilinogen Negative (Negative) Ur Leukocyte Esterase 3+ H (Negative) Urine WBC (Auto) >50 H (0-5) /hpf Urine RBC (Auto) 0-2 (0-2) /hpf U Hyaline Cast (Auto) 0-2 (0-2) /lpf U Epithel Cells (Auto) 0-2 (0-2) /hpf Urine Bacteria (Auto) 3+ H (None Seen) Urine Comment Adenovirus (PCR) Not Detected (NotDetected) B. pertussis DNA (PCR) Not Detected (NotDetected) B.parapertussis DNA PCR Not Detected (NotDetected) C. pneumoniae DNA (PCR) Not Detected (NotDetected) Coronavirus OC43 (PCR) Not Detected (NotDetected) Coronavirus HKU1 (PCR) Not Detected (NotDetected) Coronavirus 229E (PCR) Not Detected (NotDetected) SARS-CoV-2 (PCR) Not Detected (NotDetected) Coronavirus NL63 (PCR) Not Detected (NotDetected) Human Metapneumovir PCR Not Detected (NotDetected) Influenza Type A (PCR) Not Detected (NotDetected) Influenza Type B (PCR) Not Detected (NotDetected) M. pneumoniae (PCR) Not Detected (NotDetected) Parainfluenza 1 (PCR) Not Detected (NotDetected) Parainfluenza 2 (PCR) Not Detected (NotDetected) Parainfluenza 3 (PCR) Not Detected (NotDetected) Parainfluenza 4 (PCR) Not Detected (NotDetected) RSV (PCR) Not Detected (NotDetected) Entero/Rhino (PCR) Not Detected (NotDetected) 04/17/25 04/17/25 04/17/25 Range/Units 15:42 15:52 17:41 WBC (4.8-10.8) K/ul RBC (4.70-6.10) M/uL Hgb (14.0-18.0) g/dl POC Hgb 12.2 L (14.0-18.0) g/dl Hct (42.0-52.0) % POC Hct 36 L (42-52) % MCV (80.0-100.0) fL MCH (25.0-34.0) pg MCHC (32.0-36.0) g/dL RDW Std Deviation (36.4-46.3) fL RDW Coeff of Sara (11.5-14.5) % Plt Count (130-400) K/uL MPV (9.4-12.4) fL Immature Gran % (Auto) % Neut % (Auto) % Lymph % (Auto) % Tompkins % (Auto) % Eos % (Auto) % Baso % (Auto) % Neut # (Auto) (1.40-6.50) K/uL Lymph # (Auto) (1.20-3.40) K/uL [place] # (Auto) (0.11-0.59) K/uL Eos # (Auto) (0.00-0.50) K/uL Baso # (Auto) (0.00-0.20) K/uL Immature Gran # (Auto) (0.01-0.20) K/uL PT (9.0-12.0) Seconds INR (0.9-1.1) POC Sodium 135 (135-144) mmol/L Sodium (136-145) mmol/L POC Potassium 3.8 (3.3-5.0) mmol/L Potassium (3.5-5.1) mmol/L POC Chloride 97 L (101-112) mmol/L Chloride (98-107) mmol/L Carbon Dioxide (21-32) mmol/L POC Total CO2 25 (24-31) mmol/L Anion Gap (3-11) POC Anion Gap 17.0 (16-25) mmol/L POC BUN 17 (7-18) mg/dl BUN (6-23) mg/dl Creatinine (0.6-1.4) mg/dl POC Creatinine 1.7 H (0.6-1.3) mg/dl Est Cr Clr Drug Dosing ml/min eGFR BUN/Creatinine Ratio (10-20) Glucose (70-99(Fasting)) mg/dl POC Glucose (other) 78 (70-99) mg/dl Lactate 0.9 2.3 H* (0.4-2.0) mmol/L Calcium (8.6-10.3) mg/dl POC Ioniz Calcium Alonzo 1.13 (1.12-1.32) mmol/l Magnesium (1.7-2.4) mg/dl Total Bilirubin (0.2-1.0) mg/dl AST (13-39) U/L ALT (7-52) U/L Alkaline Phosphatase (34-104) U/L Total Creatine Kinase (30-223) U/L Troponin I High Sens 40.7 H (0-20) pg/ml Total Protein (6.0-8.3) gm/dl Albumin (3.4-5.0) gm/dl Globulin (2.5-4.0) gm/dl Albumin/Globulin Ratio (0.9-2) Procalcitonin (0-0.5) ng/ml TSH (0.300-4.500) uIu/ml Free T4 (0.61-1.60) ng/dl Urine Color Urine Appearance (Clear) Urine pH (4.5-7.5) Ur Specific [place] (1.000-1.030) Urine Protein (Negative) Urine Glucose (UA) (Negative) Urine Ketones (Negative) Urine Blood (Negative) Urine Nitrite (Negative) Urine Bilirubin (Negative) Urine Urobilinogen (Negative) Ur Leukocyte Esterase (Negative) Urine WBC (Auto) (0-5) /hpf Urine RBC (Auto) (0-2) /hpf U Hyaline Cast (Auto) (0-2) /lpf U Epithel Cells (Auto) (0-2) /hpf Urine Bacteria (Auto) (None Seen) Urine Comment Adenovirus (PCR) (NotDetected) B. pertussis DNA (PCR) (NotDetected) B.parapertussis DNA PCR (NotDetected) C. pneumoniae DNA (PCR) (NotDetected) Coronavirus OC43 (PCR) (NotDetected) Coronavirus HKU1 (PCR) (NotDetected) Coronavirus 229E (PCR) (NotDetected) SARS-CoV-2 (PCR) (NotDetected) Coronavirus NL63 (PCR) (NotDetected) Human Metapneumovir PCR (NotDetected) Influenza Type A (PCR) (NotDetected) Influenza Type B (PCR) (NotDetected) M. pneumoniae (PCR) (NotDetected) Parainfluenza 1 (PCR) (NotDetected) Parainfluenza 2 (PCR) (NotDetected) Parainfluenza 3 (PCR) (NotDetected) Parainfluenza 4 (PCR) (NotDetected) RSV (PCR) (NotDetected) Entero/Rhino (PCR) (NotDetected) Administered Medications Discontinued Medications Sodium Chloride (Nss) 1,000 mls @ 999 mls/hr IV .Q1H1M ONE Stop: 04/17/25 16:43 Last Infusion: 04/17/25 18:39 Dose: Infused Documented By: Admin: 04/17/25 15:53 Dose: 999 mls/hr Documented By: JUDE Sodium Chloride (Nss) 1,000 mls @ 999 mls/hr IV .Q1H1M ONE Stop: 04/17/25 17:51 Last Infusion: 04/17/25 18:39 Dose: Infused Documented By: Admin: 04/17/25 17:13 Dose: 999 mls/hr Documented By: JUDE Cefepime HCl (Maxipime 2000mg) 2,000 mg in 20 mls @ 5 mls/min IV NOW STA; Protocol Stop: 04/17/25 16:55 Last Admin: 04/17/25 17:13 Dose: 5 mls/min Documented By: JUDE Acetaminophen (Ofirmev) 1,000 mg in 100 mls @ 400 mls/hr IV NOW STA Stop: 04/17/25 17:32 Last Infusion: 04/17/25 18:39 Dose: Infused Documented By: Admin: 04/17/25 17:24 Dose: 400 mls/hr Documented By: JUDE Imaging Data Radiologist's Impression: Chest X-Ray 04/17/25 15:31 EXAM: Radiograph of the Chest 1 View INDICATION: Weakness TECHNIQUE: Frontal view of the chest. COMPARISON: 05/09/2017 FINDINGS: Lungs and pleural spaces: Stable mild symmetrical air trapping and minimal interstitial scarring. No consolidation or pulmonary edema. No pleural effusion or pneumothorax. Heart: Shape and configuration within normal limits allowing for technique. Mediastinum: Normal contour. Bones/joints: Stable old right fifth rib fracture. Mild degenerative changes in the spine. No acute osseous abnormality. Soft tissues: No abnormality noted. No radiopaque foreign body noted. Vasculature: Stable ectatic calcified aorta. Lymph nodes: Stable left paratracheal calcification likely a lymph node or in the thyroid. Upper abdomen: No abnormality noted. IMPRESSION: No acute disease. No interval change compared to 2017. ACT 112: N/A Electronically signed by Leatha Mclaughlin 04-17-2025 4:[address] 04/17/25 15:42 EXAM: CT Head Without Intravenous Contrast INDICATION: Abdominal pain and weakness. History of cancer. TECHNIQUE: Axial computed tomography images of the head/brain without intravenous contrast. Coronal reformats are provided. This CT exam was performed using one or more of the following dose reduction techniques: automated exposure control, adjustment of the mA and/or kV according to patient size, and/or use of iterative reconstruction technique. COMPARISON: No relevant prior studies available. FINDINGS: Limitations: None. Brain and extra-axial spaces: There is age appropriate cortical atrophy and chronic ischemic periventricular white matter hypodensity. No acute infarct, hemorrhage or mass noted. Bones/joints: No acute changes. Soft tissues: No significant abnormality noted. Vasculature: Intracranial atherosclerosis noted. Sinuses: No layering fluid in the visualized portions of the paranasal sinuses. Mastoid air cells: No mastoid effusion. Orbits: No significant abnormality noted. IMPRESSION: Cerebral atrophy. No acute changes. Electronically signed by Leatha Mclaughlin 04-17-2025 5:14 PM Abdomen/Pelvis CT 04/17/25 15:46 EXAM: CT Abdomen and Pelvis Without Intravenous Contrast INDICATION: Abdominal pain and weakness. History of cancer. TECHNIQUE: Axial computed tomography images of the abdomen and pelvis without intravenous contrast. Sagittal and coronal reformatted images were created and reviewed. This CT exam was performed using one or more of the following dose reduction techniques: automated exposure control, adjustment of the mA and/or kV according to patient size, and/or use of iterative reconstruction technique. COMPARISON: No relevant prior studies available. FINDINGS: Limitations: None. Lung bases: No abnormality noted. Pleural space: No visualized pleural effusion or pneumothorax. Heart: Mild cardiomegaly. No basilar pericardial effusion. Mediastinum: Small sliding hiatal hernia noted. ABDOMEN: Liver: Lack of intravenous contrast limits detection of some masses. No abnormality noted. Gallbladder and bile ducts: Cholecystectomy. No ductal dilation or stone noted. Pancreas: No pancreatic mass, calcification, inflammation or ductal dilation noted. Spleen: No significant abnormality noted. Adrenals: No significant abnormality noted. Kidneys and ureters: There is moderate increased density within the mesenteric fat with a calcified spiculation to the right at the level just below the right kidney measuring 2.6 x 2.6 x 2.8 cm. Stomach and bowel: Rectal and right lower quadrant small bowel staple lines noted. There is a moderate to large amounts of formed stool in the colon. There is no small bowel distention. PELVIS: Appendix: Well seen and appears normal. Bladder: Urinary bladder is moderately distended. No stones or gas. Reproductive: No abnormalities noted. ABDOMEN and PELVIS: Intraperitoneal space: No free air. No significant fluid collection. Bones/joints: Degenerative changes noted throughout the spine. No acute osseous abnormality seen. Soft tissues: There are bilateral paramedian supraumbilical incisional hernias containing fat. Vasculature: Atherosclerotic calcification of the aorta and branches. No aneurysm. Lymph nodes: No pathologically enlarged lymph nodes. IMPRESSION: 1. There is abnormal density within the mesentery with a right sided mesenteric spiculated calcified mass. These changes could reflect in part or in total postoperative scarring. Acute panniculitis with spiculated residual tumor in the mesentery also considered. 2. There are bilateral paramedian fat-containing supraumbilical hernias. 3. Moderate to large amounts of stool throughout the colon without obstruction. Electronically signed by Leatha Mclaughlin 04-17-2025 5:21 PM Discharge Plan Visit Data Chief Complaint: Illness Stated Complaint: ILLNESS, FEVER, AB TENDERNESS ED Provider: Leonid Hazel Discharge Problem: Acute UTI, Weakness, Rhabdomyolysis Patient Disposition: Being Evaluated by Hospitalist Condition: Serious Forms Stand Alone Forms: My [facility] Prescriptions Prescriptions: No Action diltiazem HCl [Cartia XT] 180 mg capsule,extended release 24hr 360 mg PO QAM promethazine 12.5 mg tablet 12.5 mg PO Q6H PRN (Reason: NAUSEA/VOMITING) aspirin 81 mg Tablet,Delayed Release (Dr/Ec) 81 mg PO DAILY tramadol 50 mg tablet 50 mg PO Q6H PRN (Reason: PAIN/SEVERE PAIN) pantoprazole 40 mg tablet,delayed release (DR/EC) 40 mg PO QAM ferrous sulfate [iron] 325 mg (65 mg iron) Tablet 325 mg PO WK gabapentin 300 mg Capsule 300 mg PO TID hydroxyzine HCl 25 mg Tablet 12.5 - 25 mg PO Q6H PRN (Reason: Anxiety) hydrochlorothiazide 25 mg tablet 25 mg PO QAM losartan 100 mg tablet 100 mg PO DAILY dicyclomine 10 mg capsule 10 mg PO BID PRN (Reason: ABD CRAMPING) rosuvastatin 5 mg tablet 5 mg PO QAM senna 8.6 mg Capsule 8.6 mg PO BID cholecalciferol (vitamin D3) 1,250 mcg (50,000 unit) capsule 1,250 mcg PO WK Rx Instructions: SATURDAYS Referrals Referrals: Mayda De Luna MD [Primary Care Provider] -
[2025-04-17] MEDS: SODIUM CHLORIDE 0.9% 1,000 ML IV ONE ×2 (15:53→17:13)
[2025-04-17 15:55] LABS: iSTAT Creatinine 1.7 mg/dl (0.6-1.3); iSTAT Hemoglobin 12.2 g/dl (14.0-18.0); iSTAT Ionized Calcium 1.13 mmol/l (1.12-1.32); iSTAT Potassium 3.8 mmol/L (3.3-5.0)
[2025-04-17 15:56] LABS: Basophils # (auto) 0.04 K/uL (0.00-0.20); Basophils % (auto) 0.3 %; Hematocrit (blood only) 35.7 % (42.0-52.0); Hemoglobin 11.6 g/dl (14.0-18.0); Immature Granulocytes # (auto) 0.08 K/uL (0.01-0.20); Immature Granulocytes % (auto) 0.5 %; Lymphocytes # (auto) 0.69 K/uL (1.20-3.40); Lymphocytes % (auto) 4.7 %; Mean Corpuscular Hemoglobin 26.2 pg (25.0-34.0); Mean Corpuscular Hgb Conc 32.5 g/dL (32.0-36.0); Mean Corpuscular Volume 80.8 fL (80.0-100.0); Mean Platelet Volume 8.3 fL (9.4-12.4); Monocytes # (auto) 0.83 K/uL (0.11-0.59); Monocytes % (auto) 5.6 %; Neutrophils # (auto) 13.11 K/uL (1.40-6.50); Neutrophils % (auto) 88.9 %; Platelet Count 431 K/uL (130-400); RDW Standard Deviation 44.1 fL (36.4-46.3); Red Blood Count 4.42 M/uL (4.70-6.10); White Blood Count 14.75 K/ul (4.8-10.8)
[2025-04-17 16:04] LABS: BUN Creatinine Ratio 11.3 (10-20); Calcium 9.1 mg/dl (8.6-10.3)
--- NOTE | 2025-04-17 16:06 | XRay Report ---
EXAM: Radiograph of the Chest 1 View INDICATION: Weakness TECHNIQUE: Frontal view of the chest. COMPARISON: 05/09/2017 FINDINGS: Lungs and pleural spaces: Stable mild symmetrical air trapping and minimal interstitial scarring. No consolidation or pulmonary edema. No pleural effusion or pneumothorax. Heart: Shape and configuration within normal limits allowing for technique. Mediastinum: Normal contour. Bones/joints: Stable old right fifth rib fracture. Mild degenerative changes in the spine. No acute osseous abnormality. Soft tissues: No abnormality noted. No radiopaque foreign body noted. Vasculature: Stable ectatic calcified aorta. Lymph nodes: Stable left paratracheal calcification likely a lymph node or in the thyroid. Upper abdomen: No abnormality noted. IMPRESSION: No acute disease. No interval change compared to 2017. ACT 112: N/A Electronically signed by Leatha Mclaughlin 04-17-2025 4:02 PM
[2025-04-17 16:10] LABS: Troponin I High Sensitivity 37.6 pg/ml (0-20)
[2025-04-17 16:13] LABS: Albumin Globulin Ratio 0.9 (0.9-2); Albumin Level 3.3 gm/dl (3.4-5.0); Bilirubin,Total 0.7 mg/dl (0.2-1.0); Globulin 3.6 gm/dl (2.5-4.0); Total Protein 6.9 gm/dl (6.0-8.3)
[2025-04-17 16:19] LABS: Thyroid Stimulating Hormone 0.223 uIu/ml (0.300-4.500)
[2025-04-17 16:24] LABS: INR 1.1 (0.9-1.1)
[2025-04-17 16:48] LABS: Adenovirus PCR Not Detected (NotDetected); Bordetella parapertussis PCR Not Detected (NotDetected); Bordetella pertussis PCR Not Detected (NotDetected); Chlamydia pneumoniae PCR Not Detected (NotDetected); Coronavirus 229E PCR Not Detected (NotDetected); Coronavirus CoV-2 (COVID19)PCR Not Detected (NotDetected); Coronavirus HKU1 PCR Not Detected (NotDetected); Coronavirus NL63 PCR Not Detected (NotDetected); Coronavirus OC43PCR Not Detected (NotDetected); Human Metapneumovirus PCR Not Detected (NotDetected); Influenza A PCR Not Detected (NotDetected); Influenza B PCR Not Detected (NotDetected); Mycoplasma pneumoniae PCR Not Detected (NotDetected); Parainfluenza Virus 1 PCR Not Detected (NotDetected); Parainfluenza Virus 2 PCR Not Detected (NotDetected); Parainfluenza Virus 3 PCR Not Detected (NotDetected); Parainfluenza Virus 4 PCR Not Detected (NotDetected); Respiratory Syncytial VirusPCR Not Detected (NotDetected); Rhinovirus/Enterovirus PCR Not Detected (NotDetected)
[2025-04-17 16:54] LABS: T4 Free Thyroxine 1.66 ng/dl (0.61-1.60)
[2025-04-17 16:59] LABS: Appearance Urine Clear (Clear); Bacteria Urine Automated 3+ (None Seen); Bilirubin Urine Negative (Negative); Blood Urine 3+ (Negative); Cast Urine Automated 0-2 /lpf (0-2); Color Urine Yellow; Epithelial Cell Urine Auto 0-2 /hpf (0-2); Glucose Urine UA Negative (Negative); Ketones Urine 1+ (Negative); Leukocyte Esterase Urine 3+ (Negative); Nitrite Urine Negative (Negative); Protein Urine 1+ (Negative); RBC Urine Automated 0-2 /hpf (0-2); Specific Gravity Urine 1.007 (1.000-1.030); Urobilinogen Urine Negative (Negative); WBC Urine Automated >50 /hpf (0-5); pH Urine 7.5 (4.5-7.5)
[2025-04-17] MEDS: CEFEPIME 2000MG 2,000 MG/20 ML SYR IV STA (17:13)
--- NOTE | 2025-04-17 17:19 | CT Scan Report ---
EXAM: CT Head Without Intravenous Contrast INDICATION: Abdominal pain and weakness. History of cancer. TECHNIQUE: Axial computed tomography images of the head/brain without intravenous contrast. Coronal reformats are provided. This CT exam was performed using one or more of the following dose reduction techniques: automated exposure control, adjustment of the mA and/or kV according to patient size, and/or use of iterative reconstruction technique. COMPARISON: No relevant prior studies available. FINDINGS: Limitations: None. Brain and extra-axial spaces: There is age appropriate cortical atrophy and chronic ischemic periventricular white matter hypodensity. No acute infarct, hemorrhage or mass noted. Bones/joints: No acute changes. Soft tissues: No significant abnormality noted. Vasculature: Intracranial atherosclerosis noted. Sinuses: No layering fluid in the visualized portions of the paranasal sinuses. Mastoid air cells: No mastoid effusion. Orbits: No significant abnormality noted. IMPRESSION: Cerebral atrophy. No acute changes. Electronically signed by Leatha Mclaughlin 04-17-2025 5:14 PM
--- NOTE | 2025-04-17 17:21 | CT Scan Report ---
EXAM: CT Abdomen and Pelvis Without Intravenous Contrast INDICATION: Abdominal pain and weakness. History of cancer. TECHNIQUE: Axial computed tomography images of the abdomen and pelvis without intravenous contrast. Sagittal and coronal reformatted images were created and reviewed. This CT exam was performed using one or more of the following dose reduction techniques: automated exposure control, adjustment of the mA and/or kV according to patient size, and/or use of iterative reconstruction technique. COMPARISON: No relevant prior studies available. FINDINGS: Limitations: None. Lung bases: No abnormality noted. Pleural space: No visualized pleural effusion or pneumothorax. Heart: Mild cardiomegaly. No basilar pericardial effusion. Mediastinum: Small sliding hiatal hernia noted. ABDOMEN: Liver: Lack of intravenous contrast limits detection of some masses. No abnormality noted. Gallbladder and bile ducts: Cholecystectomy. No ductal dilation or stone noted. Pancreas: No pancreatic mass, calcification, inflammation or ductal dilation noted. Spleen: No significant abnormality noted. Adrenals: No significant abnormality noted. Kidneys and ureters: There is moderate increased density within the mesenteric fat with a calcified spiculation to the right at the level just below the right kidney measuring 2.6 x 2.6 x 2.8 cm. Stomach and bowel: Rectal and right lower quadrant small bowel staple lines noted. There is a moderate to large amounts of formed stool in the colon. There is no small bowel distention. PELVIS: Appendix: Well seen and appears normal. Bladder: Urinary bladder is moderately distended. No stones or gas. Reproductive: No abnormalities noted. ABDOMEN and PELVIS: Intraperitoneal space: No free air. No significant fluid collection. Bones/joints: Degenerative changes noted throughout the spine. No acute osseous abnormality seen. Soft tissues: There are bilateral paramedian supraumbilical incisional hernias containing fat. Vasculature: Atherosclerotic calcification of the aorta and branches. No aneurysm. Lymph nodes: No pathologically enlarged lymph nodes. IMPRESSION: 1. There is abnormal density within the mesentery with a right sided mesenteric spiculated calcified mass. These changes could reflect in part or in total postoperative scarring. Acute panniculitis with spiculated residual tumor in the mesentery also considered. 2. There are bilateral paramedian fat-containing supraumbilical hernias. 3. Moderate to large amounts of stool throughout the colon without obstruction. Electronically signed by Leatha Mclaughlin 04-17-2025 5:21 PM
[2025-04-17] MEDS: ACETAMINOPHEN 1,000 MG/100 ML VIAL IV STA (17:24)
--- NOTE | 2025-04-17 18:23 | History & Physical Report ---
Date of Service April 17, 2025 Assessment & Plan (1) Sepsis: Plan: Patient is a 79 year old M with a past medical history of hypertension, DM Type II, CKD III, DEBI, COPD, h/o colorectal cancer s/p chemoradiation and bowel resection in 2007 presenting with weakness, fever x 2 days. Reportedly, patient was so weak earlier today that he was on the ground and couldn't get himself up; he denies falling. He called his who then contacted EMS. Also reports enedina burdick urinary symptoms "for awhile" specifically painful urination. Has been hydrating himself at home since the fevers and weakness started; but had decreased urine output. Sepsis in the setting of UTI (tachycardia, tachypnea, leukocytosis) * Admit to PCU for tele monitoring * Cefepime given in ED- continue Cefepime 2 gm Q8H * Start Vaco x 48 hours * IV fluids for sepsis mgnt- NSS at 150 ml/hr for 2L * Trend CBC, Procal, Lactate--> now 2.3 * Blood and urine cultures pending * PT/OT when appropriate # Rhabdomyolysis * CK elevated at 6952 * IV fluid resus stated above * Trend CK daily #JOSTIN * Baseline Cr 1.1; now 1.7; as per outside record, patient was encouraged to see Nephro for steadily declining renal functioning * Trend with AM labs * Strict I/O #Hypertension * Hold home losartan and diltiazem in setting of sepsis- outside record mentions HCTZ use for BP above goal; confirm home meds with patient's * BP stable now at 130-140's/70's * Goal 140/90 #Diabetes Type II * A1C 6.8% per outside record * Will check BSG ACHS * Carb controlled diet * Sliding scale insulin ordered with low stress dose- Goal BSG 110-140 #COPD #DEBI * Continue home Combivent Respimat for COPD management- per outside record patient tolerates and adherent to use * No evidence of CPAP use in record- monitor pulse ox with supplemental oxygen as needed DVT Ppx: on Aspirin; Teds Code status: Full PCP: Dr. Mayda De Luna Dispo: Admit to PCU for further management of sepsis UTI Patient seen in collaboration with Dr. Palmer. Please see addendum.I spent a total of 70 minutes coordinating, documenting and providing care for this patient excluding time spent in the performance of separately billed services or time spent by another provider/QHP. (2) Acute UTI: (3) Rhabdomyolysis: (4) JOSTIN (acute kidney injury): History of Present Illness Primary Care Provider: Mayda De Luna MD Patient is a 79 year old M with a past medical history of hypertension, DM Type II, CKD III, DEBI, COPD, h/o colorectal cancer s/p chemoradiation and bowel resection in 2007 presenting with weakness, fever x 2 days. Reportedly, patient was so weak earlier today that he was on the ground and couldn't get himself up; he denies falling. He called his who then contacted EMS. Also reports having urinary symptoms "for awhile" specifically painful urination. Has been hydrating himself at home since the fevers and weakness started; but had decreased urine output. Denies headache, cognitive changes, vision/hearing ramirez es, chest pain, SOB, swelling, difficulty breathing, N/V/D, joint swelling/pain, skin rashes, lesions, urinary bleeding, bruising. In the emergency department, patient was very fatigued, weak and with +signs of sepsis- tachycardia, tachypnea, elevated WBC 14.75, Procal 1.18. Lactate initially stable 0.9 then increased to 2.3 at 2H check. Cefepime started in the ED. 2L NSS given per sepsis protocol. Blood cultures pending. UA + leukocyte esterase, blood, protein, bacteria. Urine culture pending. Evidence of rhabdo with elevated CK 6952 most likely from physical exertion and possible JOSTIN with elevated creat at 1.7. BP elevated 184/111 and trended down to 140's/70's. Patient is a poor historian with home medication use, therefore, unclear whether he is compliant with anti-hypertensives at home. He was stable on room air with sats >95%. EKG: NSR, 98 bpm, QTc 474. Chest Xray showed Stable mild symmetrical air trapping and minimal interstitial scarring. No consolidation or pulmonary edema. No pleural effusion or pneumothorax. Head CT revealed cerebral atrophy. No acute changes. CT abdomen/pelvis showed abnormal density within the mesentery with a right sided mesenteric spiculated calcified mass. Possibly postoperative scarring.Bilateral paramedian fat-containing supraumbilical hernias. Moderate to large amounts of stool throughout the colon without obstruction. As per external chart review, patient was seen by PCP Dr. De Luna on 02/11/2025. As per visit record, patient had Creatinine 1.5, elevated from baseline 1.1, GFR 47 and was strongly recommended to see crew trainer for further evaluation. His blood pressure has been above goal and unclear whether this is from nonadherence or worsening kidney disease. He was to start HCTZ; however, patient reports only taking losartan and diltiazem for BP control. Last A1C 6.8 and steadily increasing. Not currently on anti-diabetic regimen at home. Last upper endoscopy and colonoscopy was done in December of 2024 with no acute findings. 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 Patient was supposed to start statin therapy but denies current use. History obtained primarily from the patient and via external chart review with [facility]. Allergies Allergy/AdvReac Type Severity Reaction Status Date / Time morphine AdvReac Severe PT HAD TOO Verified 04/17/25 17:06 MUCH POST OP-WAS PUT IN ICU FOR MONITORING Home Medications Medication Instructions Recorded Confirmed Type aspirin 81 mg tablet,delayed 81 mg PO DAILY 04/17/25 04/17/25 History release cholecalciferol (vitamin D3) 1,250 1,250 mcg PO WK 04/17/25 04/17/25 History mcg (50,000 unit) capsule dicyclomine 10 mg capsule 10 mg PO BID PRN ABD CRAMPING 04/17/25 04/17/25 History diltiazem HCl 180 mg 360 mg PO QAM 04/17/25 04/17/25 History capsule,extended release 24 hr (Cartia XT) ferrous sulfate 325 mg (65 mg 325 mg PO WK 04/17/25 04/17/25 History iron) tablet (iron) gabapentin 300 mg capsule 300 mg PO TID 04/17/25 04/17/25 History hydrochlorothiazide 25 mg tablet 25 mg PO QAM 04/17/25 04/17/25 History hydroxyzine HCl 25 mg tablet 12.5 - 25 mg PO Q6H PRN Anxiety 04/17/25 04/17/25 History losartan 100 mg tablet 100 mg PO DAILY 04/17/25 04/17/25 History pantoprazole 40 mg tablet,delayed 40 mg PO QAM 04/17/25 04/17/25 History release promethazine 12.5 mg tablet 12.5 mg PO Q6H PRN NAUSEA/VOMITING 04/17/25 04/17/25 History rosuvastatin 5 mg tablet 5 mg PO QAM 04/17/25 04/17/25 History sennosides 8.6 mg capsule (senna) 8.6 mg PO BID 04/17/25 04/17/25 History tramadol 50 mg tablet 50 mg PO Q6H PRN PAIN/SEVERE PAIN 04/17/25 04/17/25 History 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 WEIGHT/BMI reviewed. GEN: Fatigued, weak, well-developed, NAD. PSYCH: AOx3. Normal memory, mood, and affect. HEENT -Head: NC/AT; -Eyes: PERRL, EOMI. No discharge or redn ess; -Ears: External ears are normal. -Nose: Normal nares. -Mouth and throat: Dry mucous membranes, cracked lips, swallowing ok NECK: Supple, with no masses. CV: +systolic murmur, no extra beats, no swelling, +1 pulses LUNGS: Diminished effort, otherwise, clear, no accessory muscle use, room air ABD: Soft, NT/ND, NBS, no masses or organomegaly. : N/A SKIN: Warm, well perfused. No skin rashes or abnormal lesions. MSK: +3/5 BUE, BLE EXT: No clubbing, cyanosis, or edema. NEURO: Speech clear. Normal muscle strength and tone. No focal deficits. Results & Data Results & Data Vital Signs (Past 12 Hours) Vital Signs Temp Pulse Resp BP Pulse Ox O2 Del Method 04/17/25 18:00 90 21 04/17/25 17:51 94 H 19 96 04/17/25 17:45 148/76 H 04/17/25 17:42 93 H 16 97 04/17/25 17:33 93 H 14 98 04/17/25 17:30 154/85 H 04/17/25 17:30 154/85 H 04/17/25 17:29 98 H 04/17/25 17:27 95 H 17 96 04/17/25 17:21 94 H 26 H 96 04/17/25 17:18 96 H 14 96 04/17/25 17:16 173/86 H 04/17/25 17:16 173/86 H 04/17/25 17:16 173/86 H 04/17/25 17:16 173/86 H 04/17/25 17:03 96 H 04/17/25 16:54 96 H 17 174/88 H 04/17/25 16:09 97 04/17/25 15:51 103 H 18 04/17/25 15:48 100 H 16 04/17/25 15:31 102 H 20 96 Room Air 04/17/25 15:30 102 H 19 97 04/17/25 15:30 174/88 H 04/17/25 15:30 174/88 H 04/17/25 15:30 174/88 H 04/17/25 15:24 101 H 27 H 04/17/25 15:15 37.3 C 102 H 16 184/111 H 96 Room Air Laboratory Results Short CBC 04/17/25 Range/Units 15:20 WBC 14.75 H (4.8-10.8) K/ul Hgb 11.6 L (14.0-18.0) g/dl Hct 35.7 L (42.0-52.0) % Plt Count 431 H (130-400) K/uL BMP 04/17/25 15:20 Sodium 135 L Potassium 4.0 Chloride 98 Carbon Dioxide 26 BUN 18 Creatinine 1.60 H Glucose 71 Calcium 9.1 Cardiac Enzymes 04/17/25 Range/Units 15:20 Total Creatine Kinase 6952 H (30-223) U/L Liver Function 04/17/25 Range/Units 15:20 Total Bilirubin 0.7 (0.2-1.0) mg/dl AST 46 H (13-39) U/L ALT 8 (7-52) U/L Alkaline Phosphatase 72 (34-104) U/L Albumin 3.3 L (3.4-5.0) gm/dl Urine 04/17/25 Range/Units 15:15 Urine Color Yellow Urine Appearance Clear (Clear) Urine pH 7.5 (4.5-7.5) Ur Specific Abie 1.007 (1.000-1.030) Urine Protein 1+ H (Negative) Urine Glucose (UA) Negative (Negative) Diagnostic Findings Chest X-Ray 04/17/25 15:31 EXAM: Radiograph of the Chest 1 View INDICATION: Weakness TECHNIQUE: Frontal view of the chest. COMPARISON: 05/09/2017 FINDINGS: Lungs and pleural spaces: Stable mild symmetrical air trapping and minimal interstitial scarring. No consolidation or pulmonary edema. No pleural effusion or pneumothorax. Heart: Shape and configuration within normal limits allowing for technique. Mediastinum: Normal contour. Bones/joints: Stable old right fifth rib fracture. Mild degenerative changes in the spine. No acute osseous abnormality. Soft tissues: No abnormality noted. No radiopaque foreign body noted. Vasculature: Stable ectatic calcified aorta. Lymph nodes: Stable left paratracheal calcification likely a lymph node or in the thyroid. Upper abdomen: No abnormality noted. IMPRESSION: No acute disease. No interval change compared to 2017. ACT 112: N/A Electronically signed by Leatha Mclaughlin 04-17-2025 4:[address] 04/17/25 15:42 EXAM: CT Head Without Intravenous Contrast INDICATION: Abdominal pain and weakness. History of cancer. TECHNIQUE: Axial computed tomography images of the head/brain without intravenous contrast. Coronal reformats are provided. This CT exam was performed using one or more of the following dose reduction techniques: automated exposure control, adjustment of the mA and/or kV according to patient size, and/or use of iterative reconstruction technique. COMPARISON: No relevant prior studies available. FINDINGS: Limitations: None. Brain and extra-axial spaces: There is age appropriate cortical atrophy and chronic ischemic periventricular white matter hypodensity. No acute infarct, hemorrhage or mass noted. Bones/joints: No acute changes. Soft tissues: No significant abnormality noted. Vasculature: Intracranial atherosclerosis noted. Sinuses: No layering fluid in the visualized portions of the paranasal sinuses. Mastoid air cells: No mastoid effusion. Orbits: No significant abnormality noted. IMPRESSION: Cerebral atrophy. No acute changes. Electronically signed by Leatha Mclaughlin 04-17-2025 5:14 PM Abdomen/Pelvis CT 04/17/25 15:46 EXAM: CT Abdomen and Pelvis Without Intravenous Contrast INDICATION: Abdominal pain and weakness. History of cancer. TECHNIQUE: Axial computed tomography images of the abdomen and pelvis without intravenous contrast. Sagittal and coronal reformatted images were created and reviewed. This CT exam was performed using one or more of the following dose reduction techniques: automated exposure control, adjustment of the mA and/or kV according to patient size, and/or use of iterative reconstruction technique. COMPARISON: No relevant prior studies available. FINDINGS: Limitations: None. Lung bases: No abnormality noted. Pleural space: No visualized pleural effusion or pneumothorax. Heart: Mild cardiomegaly. No basilar pericardial effusion. Mediastinum: Small sliding hiatal hernia noted. ABDOMEN: Liver: Lack of intravenous contrast limits detection of some masses. No abnormality noted. Gallbladder and bile ducts: Cholecystectomy. No ductal dilation or stone noted. Pancreas: No pancreatic mass, calcification, inflammation or ductal dilation noted. Spleen: No significant abnormality noted. Adrenals: No significant abnormality noted. Kidneys and ureters: There is moderate increased density within the mesenteric fat with a calcified spiculation to the right at the level just below the right kidney measuring 2.6 x 2.6 x 2.8 cm. Stomach and bowel: Rectal and right lower quadrant small bowel staple lines noted. There is a moderate to large amounts of formed stool in the colon. There is no small bowel distention. PELVIS: Appendix: Well seen and appears normal. Bladder: Urinary bladder is moderately distended. No stones or gas. Reproductive: No abnormalities noted. ABDOMEN and PELVIS: Intraperitoneal space: No free air. No significant fluid collection. Bones/joints: Degenerative changes noted throughout the spine. No acute osseous abnormality seen. Soft tissues: There are bilateral paramedian supraumbilical incisional hernias containing fat. Vasculature: Atherosclerotic calcification of the aorta and branches. No aneurysm. Lymph nodes: No pathologically enlarged lymph nodes. IMPRESSION: 1. There is abnormal density within the mesentery with a right sided mesenteric spiculated calcified mass. These changes could reflect in part or in total postoperative scarring. Acute panniculitis with spiculated residual tumor in the mesentery also considered. 2. There are bilateral paramedian fat-containing supraumbilical hernias. 3. Moderate to large amounts of stool throughout the colon without obstruction. Electronically signed by Leatha Mclaughlin 04-17-2025 5:21 PM Supervising Physician Co-Signing Physician Notes Patient presents to the hospital with generalized weakness, symptoms of UTI. Workup in the ED shows acute kidney injury, rhabdomyolysis, urinary tract infection. Plan to start empiric antibiotic; follow-up on culture results, aggressive IV fluid resuscitation for rhabdomyolysis; hold statin. Will need repeat thyroid function test after resolution of acute illness. I have reviewed the advanced practitioner's documentation, and I agree with, and take responsibility for the plan of care I spent a total of 30 minutes coordinating, documenting, and providing care for this patient excluding time spent in the performance of separately billed services. All of the aforementioned completed while collaborating with the assigned advanced practitioner for a full treatment plan
[2025-04-17] MEDS: SODIUM CHLORIDE 0.9% 1,000 ML IV SCH (19:41)
[2025-04-17] MEDS ORDERED: ACETAMINOPHEN 325 MG TAB PO PRN (22:06)
[2025-04-17] MEDS ORDERED: GLUCAGON FOR INJ 1 MG VIAL SQ PRN (22:06)
[2025-04-17] MEDS ORDERED: VANCOMYCIN CONSULT ACTIVE PRN (22:06)
[2025-04-17] MEDS ORDERED: MAGNESIUM HYDROXIDE SUSP 30 ML UDC PO PRN (22:06)
[2025-04-17] MEDS ORDERED: IPRATROPIUM BROMIDE/ALBUTEROL respimat INH INH SCH (22:06)
[2025-04-17] MEDS ORDERED: GLUCOSE 10 TAB/TUBE PO PRN (22:06)
[2025-04-17] MEDS ORDERED: DEXTROSE 50% 50 ML SYRINGE IV PRN (22:06)
[2025-04-17] MEDS ORDERED: PHARMACY GLYCEMIC MGMT CONSULT PRN (22:06)
[2025-04-17] MEDS ORDERED: CARBOHYDRATES FOR HYPOGLYCEMIA PO PRN (22:06)
[2025-04-17] MEDS ORDERED: POLYETHYLENE (MIRALAX) 17 GM PACK PO PRN (22:06)
[2025-04-17] MEDS ORDERED: GLUCOSE 40% GEL 15 GM TUBE PO PRN (22:06)
[2025-04-17] MEDS: VANCOMYCIN HCL 1,250 MG in SODIUM CHLORIDE 0.9% 500 ML IV ONE (23:23)
[2025-04-17] MEDS: INSULIN ASPART PER UNIT CHARGE SC SCH (23:25)
[2025-04-18] MEDS: IPRATROPIUM BROMIDE HFA INHALER INH SCH (00:35)
[2025-04-18] MEDS: ALBUTEROL HFA 8 GM INHALER INH SCH (00:35)
[2025-04-18] MEDS: MELATONIN 3 MG TAB PO PRN (01:34)
[2025-04-18 04:49] LABS: A calco-baum cmplx NotReported Not Detected (NotDetected); Bact fragilis Not Reported Not Detected (NotDetected); Blood Culture Id Panel See PCR Comment (NotDetected); C auris Not Reported Not Detected (NotDetected); CTX-M Resistant Gene Not Detected (NotDetected); Calbicans Not Reported Not Detected (NotDetected); Candida glabrata Not Reported Not Detected (NotDetected); Candida krusei Not Reported Not Detected (NotDetected); Cneoformans/gatti Not Reported Not Detected (NotDetected); Cparapsilosis Not Reported Not Detected (NotDetected); Ctropicalis Not Reported Not Detected (NotDetected); E cloacae compx Not Reported Not Detected (NotDetected); Efaecalis Not Reported Not Detected (NotDetected); Efaecium Not Reported Not Detected (NotDetected); Enterobacterales DETECTED (NotDetected); Enterobacterales Not Reported DETECTED (NotDetected); Escherichia coli Not Reported Not Detected (NotDetected); H influenzae Not Reported Not Detected (NotDetected); IMP Resistant Gene Not Detected (NotDetected); K aerogenes Not Reported Not Detected (NotDetected); KPC Resistant Gene Not Detected (NotDetected); Koxytoca Not Reported Not Detected (NotDetected); Kpneumoniae grp Not Reported DETECTED (NotDetected); Lmonocyt Not Reported Not Detected (NotDetected); N meningitidis Not Reported Not Detected (NotDetected); NDM Resistant Gene Not Detected (NotDetected); OXA 48 Like Resistant Gene Not Detected (NotDetected); P aeruginosa Not Reported Not Detected (NotDetected); Proteus spp Not Reported Not Detected (NotDetected); Salmonella spp Not Reported Not Detected (NotDetected); Staph lugdunensis Not Reported Not Detected (NotDetected); Staph spp. Not Reported Not Detected (NotDetected); Staphaureus Not Reported Not Detected (NotDetected); Staphepi Not Reported Not Detected (NotDetected); Stenmaltophilia Not Reported Not Detected (NotDetected); Strep agal(GrpB) Not Reported Not Detected (NotDetected); Strep pneum Not Reported Not Detected (NotDetected); Strep pyog (GrpA) Not Reported Not Detected (NotDetected); Strep spp Not Reported Not Detected (NotDetected); VIM Resistant Gene Not Detected (NotDetected); mcr-1 Colistin Resistant Gene Not Detected (NotDetected)
[2025-04-18 05:03] LABS: Klebsiella pneumoniae group DETECTED (NotDetected)
[2025-04-18 05:57] LABS: Hematocrit (blood only) 30.6 % (42.0-52.0); Hemoglobin 9.9 g/dl (14.0-18.0); Mean Corpuscular Hemoglobin 26.3 pg (25.0-34.0); Mean Corpuscular Hgb Conc 32.4 g/dL (32.0-36.0); Mean Corpuscular Volume 81.2 fL (80.0-100.0); Mean Platelet Volume 8.3 fL (9.4-12.4); Platelet Count 370 K/uL (130-400); RDW Standard Deviation 44.7 fL (36.4-46.3); Red Blood Count 3.77 M/uL (4.70-6.10); White Blood Count 12.44 K/ul (4.8-10.8)
[2025-04-18] MEDS: CEFEPIME 2000MG 2,000 MG/20 ML SYR IV SCH (06:09)
[2025-04-18 06:15] LABS: BUN Creatinine Ratio 15.2 (10-20); Calcium 7.8 mg/dl (8.6-10.3); Creatinine Clr Calc Pharmacy 45.8 ml/min; Potassium 3.5 mmol/L (3.5-5.1)
[2025-04-18 07:12] LABS: Estimated Average Glucose 140 mg/dl; Hemoglobin A1C 6.5 % (4.5-5.6)
[2025-04-18] MEDS: ASPIRIN 81 MG ECTAB PO SCH (08:18)
[2025-04-18] MEDS: PANTOprazole 40 MG TAB PO SCH (08:18)
--- NOTE | 2025-04-18 10:33 | Hospitalist Progress Note ---
Date of Service April 18, 2025 Assessment & Plan (1) Sepsis: Plan: Patient is a 79 year old M with a past medical history of hypertension, DM Type II, CKD III, DEBI, COPD, h/o colorectal cancer s/p chemoradiation and bowel resection in 2007 presenting with weakness, fever x 2 days. Reportedly, patient was so weak earlier today that he was on the ground and couldn't get himself up; he denies falling. He called his who then contacted EMS. Also reports enedina burdick urinary symptoms "for awhile" specifically painful urination. Has been hydrating himself at home since the fevers and weakness started; but had decreased urine output. Sepsis in the setting of UTI (tachycardia, tachypnea, leukocytosis) Gram Negative Bacteremia * continue Cefepime 2 gm Q8H * continue Vanco x 48 hours given biofire results * has received 4L of fluid in less than 24 hours, hold fluids for now * Trend CBC * PT/OT when appropriate # Rhabdomyolysis * CK elevated at 6952, trending down * Trend CK daily #JOSTIN * resolved #Hypertension * Hold home losartan and diltiazem in setting of sepsis- outside record mentions HCTZ use for BP above goal; confirm home meds with patient's * BP stable now at 130-140's/70's * Goal 140/90 #Diabetes Type II * Carb controlled diet * Sliding scale insulin ordered with low stress dose- Goal BSG 110-140 #COPD #DEBI * Continue home Combivent Respimat for COPD management- per outside record patient tolerates and adherent to use * No evidence of CPAP use in record- monitor pulse ox with supplemental oxygen as needed I spent a total of 45 minutes in direct patient care, including [id number]-vlkl time with the patient and/or family, reviewing medical records, ordering and reviewing diagnostic tests, and coordinating care with other healthcare providers. This time includes: history taking, physical examination, medical decision making, counseling, ECG interpretation, imaging interpretation, lab interpretation, orders, and education, excluding time spent in the performance of separately billed services. (2) Acute UTI: (3) Rhabdomyolysis: (4) JOSTIN (acute kidney injury): Admission and Anticipated Discharge Date Admission Date: April 17, 2025 Subjective Patient seen and examined at bedside. Patient doing ok today. States he would like to go home as soon as possible. Review of Systems Review of Systems: CONSTITUTIONAL: fatigue, weakness EYES: Patient denies any visual symptoms. EARS, NOSE, AND THROAT: No difficulties with hearing. No symptoms of rhinitis or sore throat. CARDIOVASCULAR: Patient denies chest pains, palpitations, orthopnea and paroxysmal nocturnal dyspnea. RESPIRATORY: No dyspnea on exertion, no wheezing or cough. GI: No nausea, vomiting, diarrhea, constipation, abdominal pain, hematochezia or melena. : No urinary hesitancy or dribbling. No nocturia or urinary frequency. No abnormal urethral discharge. MUSCULOSKELETAL: No myalgias or arthralgias. NEUROLOGIC: No chronic headaches, no seizures. Patient denies numbness, tingling or weakness. PSYCHIATRIC: Patient denies problems with mood disturbance. No problems with anxiety. ENDOCRINE: No excessive urination or excessive thirst. DERMATOLOGIC: Patient denies any rashes or skin changes. Physical Exam Physical Exam: Gen: A&O 3 NAD HEENT: NCAT, EOMI, not icteric. External ears normal. No rhinorrhea. Moist mucous membranes. Neck: Supple, full range of motion, no observable masses, No meningeal sign. Lungs: No Respiratory distress. CV: RRR, no edema. Abdomen: Soft, nondistended, No rebound tenderness. MSK: No joint swelling, no redness. Skin: No rashes, petechiae, lesions. Normal color per patient. Neuro: Normal Gait, Grossly intact. Psych: Appropriate for situation. Results & Data Results & Data Vital Signs (Past 12 Hours) Vital Signs Temp Pulse Pulse Resp BP Pulse Ox O2 Del Method 04/18/25 08:26 37.0 C 74 18 148/70 H 97 Room Air 04/18/25 08:00 88 04/18/25 07:03 77 18 95 Room Air 04/18/25 03:18 36.9 C 89 22 156/72 H 99 Room Air 04/18/25 02:20 90 04/18/25 00:37 82 18 97 Room Air 04/17/25 22:56 Room Air Laboratory Results -personally reviewed, drop in all three cell lines suggestive of dilution, creatinine much improved from prior, CK downtrending Medications Administered Albuterol (Albuterol Hfa 8 Gm Inhaler) 1 puffs INH QIDR VAZQUEZ Stop: 05/17/25 22:05 Last Admin: 04/18/25 07:03 Dose: 1 puffs Documented By: Admin: 04/18/25 00:35 Dose: 1 puffs Documented By: OJ Aspirin (Aspirin 81 Mg Ectab) 81 mg PO DAILY [facility] Stop: 05/18/25 08:59 Last Admin: 04/18/25 08:18 Dose: 81 mg Documented By: DORA Sodium Chloride (Nss) 1,000 mls @ 150 mls/hr IV .Q6H40M [facility] Stop: 04/20/25 19:44 Last Admin: 04/18/25 10:21 Dose: Not Given Documented By: Infusion: 04/18/25 10:21 Dose: 150 mls/hr Documented By: Admin: 04/18/25 05:38 Dose: 150 mls/hr Documented By: Infusion: 04/18/25 02:22 Dose: Infused Documented By: Admin: 04/17/25 19:41 Dose: 150 mls/hr Documented By: LATASHA Cefepime HCl (Maxipime 2000mg) 2,000 mg in 20 mls @ 5 mls/min IV Q12H [facility]; Protocol Stop: 04/23/25 05:59 Last Admin: 04/18/25 06:09 Dose: 5 mls/min Documented By: FRANSICO Insulin Aspart (Insulin Aspart Per Unit Charge) 0 units SC ACHS [facility] Stop: 05/17/25 22:05 Last Admin: 04/18/25 08:26 Dose: Not Given Documented By: Admin: 04/17/25 23:25 Dose: Not Given Documented By: FRANSICO Ipratropium Bronson (Ipratropium Bronson Hfa Inhaler) 1 puffs INH QIDR [facility] Stop: 05/17/25 22:05 Last Admin: 04/18/25 07:03 Dose: 1 puffs Documented By: Admin: 04/18/25 00:35 Dose: 1 puffs Documented By: OJ Melatonin (Melatonin 3 Mg Tab) 3 mg PO HS PRN PRN Reason: Sleep Stop: 05/18/25 01:15 Last Admin: 04/18/25 01:34 Dose: 3 mg Documented By: FRANSICO Pantoprazole Sodium (Pantoprazole 40 Mg Tab) 40 mg PO QAM [facility] Stop: 05/18/25 08:59 Last Admin: 04/18/25 08:18 Dose: 40 mg Documented By: DORA
[2025-04-18] MEDS: ALUMINUM/MAGNESIUM SUSP 30 ML UDC PO PRN (13:15)
--- NOTE | 2025-04-18 13:52 | Pharmacy Report ---
Pharmacy Glycemic Short Note 2 - Date of Service April 18, 2025 - Glycemic Short BSG Results (Last 24 hours): 04/17/25 04/17/25 04/17/25 15:20 15:42 20:31 Glucose 71 POC Glucose 66 L* POC Glucose (other) 78 04/17/25 04/18/25 04/18/25 23:25 05:14 07:55 Glucose 61 L POC Glucose 88 73 POC Glucose (other) 04/18/25 11:52 Glucose POC Glucose 76 POC Glucose (other) OUTPATIENT ANTIDIABETIC REGIMEN: * N/A * A1c 6.5% 04/18/25 ASSESSMENT: * Patient admitted with K. pneumoniae bacteremia. No diabetes medications reported outpatient. A1c 6.5%. * Patient has been mildly hypoglycemic. Will continue with just loose correction insulin for now. Monitor for additional need PLAN FOR INPATIENT GLYCEMIC CONTROL: * Hold outpatient oral diabetes medications * Basal insulin * Hold * Bolus insulin * NovoLog per scale ACHS or Q6hrs while NPO * Goal Range: Low 110 mg/dL - High 140 mg/dL * Correction Factor: 65 mg/dL/unit * Nutritional / Prandial insulin per carb ratio of 1 unit per -- grams CHO consumed
[2025-04-18] MEDS: ONDANSETRON INJ 2 MG/ML 2 ML VIAL IV PRN (14:16)
[2025-04-18] MEDS: PANTOprazole 40 MG TAB PO STA (14:25)
[2025-04-18] MEDS ORDERED: VANCOMYCIN HCL 1,000 MG/270 ML BAG IV SCH (20:00)
[2025-04-18] MEDS: oxyCODONE HCL IR 5 MG TAB (IMMEDIATE RELEASE) PO PRN (20:03)
[2025-04-19 05:21] LABS: Hematocrit (blood only) 28.2 % (42.0-52.0); Hemoglobin 9.1 g/dl (14.0-18.0); Mean Corpuscular Hemoglobin 26.1 pg (25.0-34.0); Mean Corpuscular Hgb Conc 32.3 g/dL (32.0-36.0); Mean Corpuscular Volume 80.8 fL (80.0-100.0); Mean Platelet Volume 8.1 fL (9.4-12.4); Platelet Count 338 K/uL (130-400); RDW Standard Deviation 43.7 fL (36.4-46.3); Red Blood Count 3.49 M/uL (4.70-6.10); White Blood Count 10.26 K/ul (4.8-10.8)
[2025-04-19 05:48] LABS: BUN Creatinine Ratio 14.4 (10-20); Calcium 7.9 mg/dl (8.6-10.3); Creatinine Clr Calc Pharmacy 46.2 ml/min; Potassium 3.4 mmol/L (3.5-5.1)
[2025-04-19 05:54] LABS: Troponin I High Sensitivity 33.6 pg/ml (0-20)
[2025-04-19 07:26] LABS: Magnesium 1.7 mg/dl (1.7-2.4); Phosphorus 2.5 mg/dl (2.5-4.9)
[2025-04-19 07:52] VITALS: RESP 18
[2025-04-19] MEDS: POTASSIUM CHLORIDE CRTAB 20 MEQ TABCR PO STA (09:43)
[2025-04-19] MEDS: cefTRIAXone SODIUM 2,000 MG/50 ML BAG IV SCH (10:56)
[2025-04-19 11:11] VITALS: BP 168/77; TEMP 97.5
[2025-04-19 11:43] VITALS: O2SAT 96
[2025-04-19 13:56] VITALS: PULSE 83
--- NOTE | 2025-04-19 16:56 | Discharge Summary ---
Discharge Summary Date of Service April 19, 2025 Principal Dx & Hospital Course #1 = Principal Diagnosis (1) Sepsis: Patient is a 79 year old M with a past medical history of hypertension, DM Type II, CKD III, DEBI, COPD, h/o colorectal cancer s/p chemoradiation and bowel resection in 2007 presenting with weakness, fever x 2 days. Reportedly, patient was so weak earlier today that he was on the ground and couldn't get himself up; he denies falling. He called his who then contacted EMS. Also reports having urinary symptoms "for awhile" specifically painful urination. Has been hydrating himself at home since the fevers and weakness started; but had decreased urine output. Sepsis in the setting of UTI (tachycardia, tachypnea, leukocytosis) Klebsiella Bacteremia * continue Cefepime 2 gm Q8H * has received 4L of fluid in less than 24 hours, hold fluids for now * Trend CBC * PT/OT when appropriate # Rhabdomyolysis * CK elevated at 6952, trending down * Trend CK daily #JOSTIN * resolved #Hypertension * Hold home losartan and diltiazem in setting of sepsis- outside record mentions HCTZ use for BP above goal; confirm home meds with patient's * BP stable now at 130-140's/70's * Goal 140/90 #Diabetes Type II * Carb controlled diet * Sliding scale insulin ordered with low stress dose- Goal BSG 110-140 #COPD #DEBI * Continue home Combivent Respimat for COPD management- per outside record patient tolerates and adherent to use * No evidence of CPAP use in record- monitor pulse ox with supplemental oxygen as needed (2) Acute UTI: (3) Rhabdomyolysis: (4) JOSTIN (acute kidney injury): Notes For Next Care Provider Patient is a 79 year old M with a past medical history of hypertension, DM Type II, CKD III, DEBI, COPD, h/o colorectal cancer s/p chemoradiation and bowel resection in 2007 presenting with weakness, fever x 2 days. On medicine, found to have Klebsiella UTI and subsequent Klebsiella bacteremia, luciano sensitive. Also had rhabdomyolysis/JOSTIN, improved with fluids. Patient improved with fluids and abx. On 04/19/2025 patient medically stable for discharge home. Medication Changes From Visit -see below Admission HPI Per Admitting Provider Patient is a 79 year old M with a past medical history of hypertension, DM Type II, CKD III, DEBI, COPD, h/o colorectal cancer s/p chemoradiation and bowel resection in 2007 presenting with weakness, fever x 2 days. Reportedly, patient was so weak earlier today that he was on the ground and couldn't get himself up; he denies falling. He called his who then contacted EMS. Also reports having urinary symptoms "for awhile" specifically painful urination. Has been hydrating himself at home since the fevers and weakness started; but had decreased urine output. Denies headache, cognitive changes, vision/hearing changes, chest pain, SOB, swelling, difficulty breathing, N/V/D, joint swelling/pain, skin rashes, lesions, urinary bleeding, bruising. In the emergency department, patient was very fatigued, weak and with +signs of sepsis- tachycardia, tachypnea, elevated WBC 14.75, Procal 1.18. Lactate initially stable 0.9 then increased to 2.3 at 2H check. Cefepime started in the ED. 2L NSS given per sepsis protocol. Blood cultures pending. UA + leukocyte esterase, blood, protein, bacteria. Urine culture pending. Evidence of rhabdo with elevated CK 6952 most likely from physical exertion and possible JSOTIN with elevated creat at 1.7. BP elevated 184/111 and trended down to 140's/70's. Patient is a poor historian with home medication use, therefore, unclear whether he is compliant with anti-hypertensives at home. He was stable on room air with sats >95%. EKG: NSR, 98 bpm, QTc 474. Chest Xray showed Stable mild symmetrical air trapping and minimal interstitial scarring. No consolidation or pulmonary edema. No pleural effusion or pneumothorax. Head CT revealed cerebral atrophy. No acute changes. CT abdomen/pelvis showed abnormal density within the mesentery with a right sided mesenteric spiculated calcified mass. Possibly postoperative scarring.Bilateral paramedian fat-containing supraumbilical hernias. Moderate to large amounts of stool throughout the colon without obstruction. As per external chart review, patient was seen by PCP Dr. De Luna on 02/11/2025. As per visit record, patient had Creatinine 1.5, elevated from baseline 1.1, GFR 47 and was strongly recommended to see meat counter clerk for further evaluation. His blood pressure has been above goal and unclear whether this is from nonadherence or worsening kidney disease. He was to start HCTZ; however, patient reports only taking losartan and diltiazem for BP control. Last A1C 6.8 and steadily increasing. Not currently on anti-diabetic regimen at home. Last upper endoscopy and colonoscopy was done in December of 2024 with no acute findings. 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 Patient was supposed to start statin therapy but denies current use. History obtained primarily from the patient and via external chart review with [facility]. Discharge Exam Gen: A&O 3 NAD HEENT: NCAT, EOMI, not icteric. External ears normal. No rhinorrhea. Moist muc ous membranes. Neck: Supple, full range of motion, no observable masses, No meningeal sign. Lungs: No Respiratory distress. CV: RRR, no edema. Abdomen: Soft, nondistended, No rebound tenderness. MSK: No joint swelling, no redness. Skin: No rashes, petechiae, lesions. Normal color per patient. Neuro: Normal Gait, Grossly intact. Psych: Appropriate for situation. Updated Medication List Medication Instructions Recorded Confirmed Type aspirin 81 mg tablet,delayed 81 mg PO DAILY 04/17/25 04/17/25 History release cholecalciferol (vitamin D3) 1,250 1,250 mcg PO WK 04/17/25 04/17/25 History mcg (50,000 unit) capsule dicyclomine 10 mg capsule 10 mg PO BID PRN ABD CRAMPING 04/17/25 04/17/25 History diltiazem HCl 180 mg 360 mg PO QAM 04/17/25 04/17/25 History capsule,extended release 24 hr (Cartia XT) ferrous sulfate 325 mg (65 mg 325 mg PO WK 04/17/25 04/17/25 History iron) tablet (iron) gabapentin 300 mg capsule 300 mg PO TID 04/17/25 04/17/25 History hydrochlorothiazide 25 mg tablet 25 mg PO QAM 04/17/25 04/17/25 History hydroxyzine HCl 25 mg tablet 12.5 - 25 mg PO Q6H PRN Anxiety 04/17/25 04/17/25 History losartan 100 mg tablet 100 mg PO DAILY 04/17/25 04/17/25 History pantoprazole 40 mg tablet,delayed 40 mg PO QAM 04/17/25 04/17/25 History release rosuvastatin 5 mg tablet 5 mg PO QAM 04/17/25 04/17/25 History sennosides 8.6 mg capsule (senna) 8.6 mg PO BID 04/17/25 04/17/25 History tramadol 50 mg tablet 50 mg PO Q6H PRN PAIN/SEVERE PAIN 04/17/25 04/17/25 History amoxicillin 500 mg-potassium 1 tab PO Q12H 7 days #14 tabs 04/19/25 Rx clavulanate 125 mg tablet (Augmentin) ondansetron 4 mg disintegrating 4 mg PO Q8H PRN nausea and 04/19/25 Rx tablet vomiting 4 days #14 tabs Hospital Stay Data Consultations 04/17/25 17:49 ED Decision to Admit Stat Diagnostic Imagining Performed 04/17/25 15:42 CT head/brain wo con Stat 04/17/25 15:46 CT abd pelvis wo con Stat Pending Results Patient Have Any Pending Studies at Discharge: No Discharge Instructions Given to Patient (Per Discharging Provider) 1. Please finish course of antibiotics as prescribed. 2. Please follow up with PCP. Total Time Total Time Spent Total Time Spent (In Minutes): I spent a total of 35 minutes in direct patient care, including hhce-aa-[id number] time with the patient and/or family, reviewing medical records, ordering and reviewing diagnostic tests, and coordinating care with other healthcare providers. This time includes: history taking, physical examination, medical decision making, counseling, ECG interpretation, imaging interpretation, lab interpretation, orders, and education, excluding time spent in the performance of separately billed services.
--- NOTE | 2025-04-20 15:23 | Electrocardiogram Report ---
Test Reason : Blood Pressure : */* mmHG Vent. Rate : 98 BPM Atrial Rate : 98 BPM P-R Int : 154 ms QRS Dur : 64 ms QT Int : 372 ms P-R-T Axes : 62 28 51 degrees QTcB Int : 474 ms Normal sinus rhythm Premature ventricular complexes Otherwise normal ECG When compared with ECG of 09-May-2017 22:24, No significant change was found Confirmed by Nabor Herzog ([id number]) on 04/20/2025 3:22:56 PM Referred By: Confirmed By: Nabor Herzog
== END 2025-04-19 14:52 | disposition home or self-care (01) | DRG 872 ==
LOC: ED 15:08 → 4W 18:35 → SUATTDRO 18:35 → 4W 20:55

== ENCOUNTER 2025-09-13 11:02 | Inpatient (IN) ==
[2025-09-13 12:02] LABS: Hematocrit (blood only) 36.2 % (42.0-52.0); Hemoglobin 11.5 g/dL (14.0-18.0); Immature Granulocytes # (auto) 0.03 K/uL (0.01-0.20); Immature Granulocytes % (auto) 0.3 %; Mean Corpuscular Hemoglobin 25.5 pg (25.0-34.0); Mean Corpuscular Volume 80.3 fL (80.0-100.0); Platelet Count 367 K/uL (130-400); RDW Standard Deviation 46.0 fL (36.4-46.3); Red Blood Count 4.51 M/uL (4.70-6.10); White Blood Count 8.84 K/ul (4.8-10.8)
[2025-09-13 12:11] LABS: Appearance Urine Cloudy (Clear); Glucose Urine UA Negative (Negative)
[2025-09-13 12:19] LABS: Alanine Aminotransferase 10.0 U/L (7-52); Albumin Globulin Ratio 1.1 (0.9-2); Albumin Level 3.7 gm/dl (3.4-5.0); Alkaline Phosphatase 80.0 U/L (34-104); Anion Gap 7.0 (3-11); Bilirubin,Total 0.6 mg/dl (0.2-1.0); Blood Urea Nitrogen 13.0 mg/dl (6-23); Calcium 9.0 mg/dl (8.6-10.3); Carbon Dioxide 25.0 mmol/L (21-32); Chloride 105.0 mmol/L (98-107); Creatinine Clr Calc Pharmacy 46.3 ml/min; Globulin 3.4 gm/dl (2.5-4.0); Glucose 127.0 mg/dl (70-99(Fasting)); Lipase 11.0 U/L (11-82); Potassium 4.3 mmol/L (3.5-5.1); Sodium 137.0 mmol/L (136-145); Total Protein 7.1 gm/dl (6.0-8.3)
[2025-09-13 12:22] LABS: Epithelial Cell Urine 0-2 /hpf (0-2)
[2025-09-13 12:34] LABS: INR 1.1 (0.9-1.1); Prothrombin Time 11.1 Seconds (9.0-12.0)
[2025-09-13] MEDS: SODIUM CHLORIDE 0.9% 1,000 ML IV STA (12:58)
--- NOTE | 2025-09-13 12:58 | Emergency Department Note ---
Impression & Plan Acute UTI, Weakness, Confusion, Fall ED Provider Note Provider: Leonid Hazel MD CHIEF COMPLAINT: Falls, weakness HISTORY OF PRESENT ILLNESS: Patient is a 80-year-old past medical history including COPD, heart myolysis, UTI presenting here today reporting increased falling most recently last night. States he been feeling weak and dizzy and then had the falls. Does report ongoing issues with urinary frequency and burning for several months. Has complete antibiotic courses for UTI before but does complain of current abdominal pain. Patient does take a baby aspirin but denies other blood thinners. Patient is not the best historian. Did discuss with his who is also present here in the emergency room. She states he has been more drowsy confused the last several days although he is not been quite himself for 6 months. PAST MEDICAL HISTORY: As noted above MEDICATIONS: Reviewed home medications SOCIAL HISTORY: Non-smoker PHYSICAL EXAM: GENERAL: alert and oriented in no acute distress on stretcher Head: normocephalic and atraumatic EYES: No injection, discharge or icterus. EOMI. NECK: Trachea midline. ENT: Mucous membranes pink and moist. LUNGS: Airway patent. No retractions. Breath sounds clear HEART: Regular rate and rhythm. No chest wall tenderness ABDOMEN: Soft and non-tender, without guarding or rebound. No flank tenderness SKIN: Acyanotic, warm, dry, without rashes EXTREMITIES: Without swelling, tenderness or deformity NEUROLOGICAL: No focal deficits. No aphasia. No facial droop or slurred speech. Ambulatory. EK bpm sinus tachycardia. No PVC or PAC. No acute ST segment lobation or depression with QTc of 463. CONTINUOUS CARDIAC MONITORING: was ordered and showed a heart rate of 80s to 100 bpm in normal sinus rhythm to sinus tachycardia. GCS 15 Patient's laboratory studies and imaging reviewed. Differential includes Infection, dehydration, metabolic abnormality, hypo/hyperglycemia, electrolyte disturbance, anemia, hypoxia, cardiac sources, intracerebral event, toxicologic, neurologic, as well as other pathologies. IMPRESSION/MEDICAL DECISION MAKING: Patient history of UTI in the past including bacteremia. Vitals reassuring here. Has had weakness and abdominal discomfort as well as several falls. CT head obtained will CT abdomen pelvis. Blood work is obtained. No evidence of sepsis or severe anemia. No severe electrolyte abnormality signs of renal dysfunction. Procalcitonin not severely elevated. Urinalysis seems convincing for UTI but I do not believe he is bacteremic or septic currently. CT reports per radiology are reassuring with questionably a bladder infection stable to slightly improved mesenteric lesion. No believe this is related to his presentation. Will cover with antibiotics here. Discussed with him he was initially hesitant to stay. Seems a bit drowsy and confused at times. Discussed with his who was agree with the plan for him to stay and does not feel she can care for him well at home currently. The hospitalist team was consulted. Patient's blood pressure in the room later is elevated but he is fidgeting and fighting with a blood pressure cuff during this. Will continue to monitor and later persistently elevated. Given a bit of labetalol for blood pressure control. Low suspicion this represents acute CVA. 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) Social History Smoking Status: Never smoker Hx Alcohol Use: No Hx Substance Use: No Preferred Language: German Communication Ability: Effective Rv Detailer Required: No Beliefs That Will Affect Care: None Current Living Situation: Spouse Feels Safe at Home: Yes Assistive Devices: None Allergies Allergies Allergy/AdvReac Type Severity Reaction Status Date / Time morphine AdvReac Severe PT HAD TOO Verified 04/17/25 17:06 MUCH POST OP-WAS PUT IN ICU FOR MONITORING Home Meds Home Medications Medication Instructions Recorded Confirmed aspirin 81 mg tablet,delayed 81 mg PO DAILY 04/17/25 09/13/25 release cholecalciferol (vitamin D3) 1,250 1,250 mcg PO WK 04/17/25 09/13/25 mcg (50,000 unit) capsule dicyclomine 10 mg capsule 10 mg PO BID PRN ABD CRAMPING 04/17/25 09/13/25 diltiazem HCl 180 mg 360 mg PO QAM 04/17/25 09/13/25 capsule,extended release 24 hr (Cartia XT) ferrous sulfate 325 mg (65 mg 325 mg PO WK 04/17/25 09/13/25 iron) tablet (iron) gabapentin 300 mg capsule 300 mg PO TID 04/17/25 09/13/25 hydrochlorothiazide 25 mg tablet 25 mg PO QAM 04/17/25 09/13/25 hydroxyzine HCl 25 mg tablet 12.5 - 25 mg PO Q6H PRN Anxiety 04/17/25 09/13/25 pantoprazole 40 mg tablet,delayed 40 mg PO QAM 04/17/25 09/13/25 release rosuvastatin 5 mg tablet 5 mg PO QAM 04/17/25 09/13/25 sennosides 8.6 mg capsule (senna) 8.6 mg PO BID 04/17/25 09/13/25 tramadol 50 mg tablet 50 mg PO Q6H PRN PAIN/SEVERE PAIN 04/17/25 09/13/25 lorazepam 1 mg tablet 1 mg PO Q8H PRN Anxiety 09/13/25 09/13/25 tamsulosin 0.4 mg capsule 0.4 mg PO DAILY 09/13/25 09/13/25 Results & Data (ED) Vital Signs Vital Signs - 24 hr 09/13/25 11:12 09/13/25 13:04 09/13/25 13:05 Temperature 36.6 C Temperature Source Temporal Artery Scan Pulse Rate 107 H Pulse Rate [Apical] 78 Respiratory Rate 18 22 Respiratory Effort / Characteristics Non-Labored Spontaneous Respiratory Depth Normal Respiratory Pattern Regular Blood Pressure 149/84 H Blood Pressure [Right Arm] 212/111 H Blood Pressure Mean 105 Blood Pressure Mean [Right Arm] 144 Blood Pressure Position [Right Arm] Pulse Oximetry 93 98 97 Oxygen Delivery Method Room Air Room Air Room Air Sepsis Recent Fever Within 48 Hours No Sepsis New/Unexplained Change in Mental Status No Sepsis Action Taken by Nursing No Action Required 09/13/25 13:09 09/13/25 14:31 09/13/25 14:45 Temperature 37.2 C Temperature Source Oral Pulse Rate 80 Pulse Rate [Apical] 84 89 Respiratory Rate 16 Respiratory Effort / Characteristics Non-Labored Spontaneous Respiratory Depth Normal Respiratory Pattern Regular Blood Pressure Blood Pressure [Right Arm] 228/114 H 218/119 H Blood Pressure Mean Blood Pressure Mean [Right Arm] 152 152 Blood Pressure Position [Right Arm] Semi-fowlers Pulse Oximetry 98 Oxygen Delivery Method Room Air Sepsis Recent Fever Within 48 Hours Sepsis New/Unexplained Change in Mental Status Sepsis Action Taken by Nursing 09/13/25 14:46 Temperature Temperature Source Pulse Rate 86 Pulse Rate [Apical] Respiratory Rate Respiratory Effort / Characteristics Respiratory Depth Respiratory Pattern Blood Pressure 218/119 H Blood Pressure [Right Arm] Blood Pressure Mean Blood Pressure Mean [Right Arm] Blood Pressure Position [Right Arm] Pulse Oximetry Oxygen Delivery Method Sepsis Recent Fever Within 48 Hours Sepsis New/Unexplained Change in Mental Status Sepsis Action Taken by Nursing Laboratory Data 09/13/25 11:41 09/13/25 11:41 Lab Results 09/13/25 09/13/25 09/13/25 Range/Units 11:15 11:41 13:10 WBC 8.84 (4.8-10.8) K/ul RBC 4.51 L (4.70-6.10) M/uL Hgb 11.5 L (14.0-18.0) g/dL Hct 36.2 L (42.0-52.0) % MCV 80.3 (80.0-100.0) fL MCH 25.5 (25.0-34.0) pg MCHC 31.8 L (32.0-36.0) g/dL RDW Std Deviation 46.0 (36.4-46.3) fL RDW Coeff of Sara 16.0 H (11.5-14.5) % Plt Count 367 (130-400) K/uL MPV 8.0 L (9.4-12.4) fL Immature Gran % (Auto) 0.3 % Neut % (Auto) 71.4 % Lymph % (Auto) 15.0 % Dougherty % (Auto) 6.8 % Eos % (Auto) 5.8 % Baso % (Auto) 0.7 % Neut # (Auto) 6.31 (1.40-6.50) K/uL Lymph # (Auto) 1.33 (1.20-3.40) K/uL Dougherty # (Auto) 0.60 H (0.11-0.59) K/uL Eos # (Auto) 0.51 H (0.00-0.50) K/uL Baso # (Auto) 0.06 (0.00-0.20) K/uL Immature Gran # (Auto) 0.03 (0.01-0.20) K/uL PT 11.1 (9.0-12.0) Seconds INR 1.1 (0.9-1.1) Sodium 137 (136-145) mmol/L Potassium 4.3 (3.5-5.1) mmol/L Chloride 105 (98-107) mmol/L Carbon Dioxide 25 (21-32) mmol/L Anion Gap 7 (3-11) BUN 13 (6-23) mg/dl Creatinine 1.07 (0.6-1.4) mg/dl Est Cr Clr Drug Dosing 46.3 ml/min eGFR 69.72 BUN/Creatinine Ratio 12.1 (10-20) Glucose 127 H (70-99(Fasting)) mg/dl Lactate 0.8 (0.4-2.0) mmol/L Calcium 9.0 (8.6-10.3) mg/dl Total Bilirubin 0.6 (0.2-1.0) mg/dl AST 16 (13-39) U/L ALT 10 (7-52) U/L Alkaline Phosphatase 80 (34-104) U/L Troponin I High Sens 4.2 (0-20) pg/ml Total Protein 7.1 (6.0-8.3) gm/dl Albumin 3.7 (3.4-5.0) gm/dl Globulin 3.4 (2.5-4.0) gm/dl Albumin/Globulin Ratio 1.1 (0.9-2) Lipase 11 (11-82) U/L Procalcitonin 0.06 (0-0.5) ng/ml Urine Color Yellow Urine Appearance Cloudy A (Clear) Urine pH 6.0 (4.5-7.5) Ur Specific Tamiment 1.025 (1.000-1.030) Urine Protein 2+ H (Negative) Urine Glucose (UA) Negative (Negative) Urine Ketones Negative (Negative) Urine Blood 2+ H (Negative) Urine Nitrite Negative (Negative) Urine Bilirubin Negative (Negative) Urine Urobilinogen Negative (Negative) Ur Leukocyte Esterase 2+ H (Negative) Urine RBC 3-5 H (0-2) /hpf Urine WBC >50 H (0-5) /hpf Ur Epithelial Cells 0-2 (0-2) /hpf Urine Bacteria 1+ H (None Seen) Urine Comment Administered Medications Discontinued Medications Sodium Chloride (Nss) 1,000 mls @ 999 mls/hr IV .Q1H1M STA Stop: 09/13/25 12:22 Last Admin: 09/13/25 12:58 Dose: 999 mls/hr Documented By: LEAH Cefepime HCl (Maxipime 2000mg) 2,000 mg in 20 mls @ 5 mls/min IV NOW STA; Protocol Stop: 09/13/25 13:50 Last Admin: 09/13/25 13:52 Dose: 5 mls/min Documented By: LEAH Labetalol HCl (Labetalol Hcl Iv 5 Mg/Ml 20ml) 10 mg IV NOW STA Stop: 09/13/25 14:39 Last Admin: 09/13/25 14:46 Dose: 10 mg Documented By: [facility] Imaging Data Radiologist's Impression: Abdomen/Pelvis CT 09/13/25 11:22 CT SCAN OF THE ABDOMEN AND PELVIS WITH IV CONTRAST CLINICAL HISTORY: Fall. COMPARISON STUDY: CT of the abdomen and pelvis April 17, 2025. TECHNIQUE: Following the IV administration of 93 cc of Optiray 320, CT scan of the abdomen and pelvis is performed from the lung bases to the proximal femora. Images are reviewed in the axial, sagittal, and coronal planes. IV contrast was administered without complication. A dose lowering technique was utilized adhering to the principles of ALARA. CT DOSE: 1556.16 mGy.cm FINDINGS: No hemoperitoneum or pneumoperitoneum is present. There is a small hiatal hernia. Biliary ductal dilatation is similar to prior exams and likely related to cholecystectomy. Lateral segment hepatic cyst is noted. There are no suspicious hepatic lesions. No evidence for traumatic injury to the liver, spleen, adrenal glands, kidneys or pancreas. There is moderate bilateral renal cortical thinning. 1.3 cm right lower pole renal cyst is present. Additional subcentimeter bilateral renal lesions are too small to characterize but favor cysts. There is no hydronephrosis. There is bladder wall thickening with adjacent stranding. There are stable postoperative findings with a colorectal anastomosis. Mesenteric stranding is again noted. This is unchanged. A 3.2 x 2.3 cm irregular partially calcified mesenteric lesion on image [address] of October 09, 2021. This is similar to CT of April 17, 2025. Several thyroid fluid containing ventral hernias are present. No acute fractures within the lumbar spine, pelvis or hips are identified. IMPRESSION: 1. No acute traumatic findings within the abdomen or pelvis. 2. Bladder wall thickening with adjacent stranding which could be correlated with urinalysis. 3. 3.2 x 2.3 cm irregular partially calcified mesenteric lesion, similar to CT of April 17, 2025. This remains indeterminate but decreased when compared to CT of October 09, 2011. Stable mesenteric stranding. 4. No significant change in biliary ductal dilatation. This is likely related to cholecystectomy although could be correlated with liver function tests. ACT 112: Negative or not required by law. Electronically signed by: Po Hartmann M.D. 09/13/2025 1:[address] 09/13/25 11:22 CT SCAN OF THE BRAIN WITHOUT IV CONTRAST CLINICAL HISTORY: Fall COMPARISON STUDY: CT of the brain dated 04/17/2025. TECHNIQUE: Unenhanced CT scan of the brain is performed from the vertex to the skull base. Images are reviewed in the axial, sagittal, coronal planes. A dose lowering technique was utilized adhering to the principles of ALARA. FINDINGS: Brain parenchyma: There is age-related involutional change noting mild subcortical and periventricular microangiopathic disease. There is no hemorrhage, mass effect, or evidence of acute territorial ischemia by CT criteria. Haney-white matter differentiation is preserved. No extra-axial fluid collection is seen. Ventricles, sulci, cisterns: Prominent secondary to involutional change. Intracranial vasculature: There is atherosclerotic calcification of the cavernous carotid and vertebral arteries. Calvarium: Unremarkable. Soft tissues: There is a calcified sialolith in the right parotid gland. Sinuses and mastoids: Mild dependent mucosal thickening is noted in the maxillary antra. There is trace mucosal thickening ethmoid sinuses. The mastoid air cells are well pneumatized. Cerumen is noted in the right external auditory canal. Orbits: The bony orbits are grossly intact. There are bilateral ocular lens implants. IMPRESSION: There is no hemorrhage, mass effect, or evidence of acute territorial ischemia by CT criteria. ACT 112: Negative or not required by law. Electronically signed by: Brandan Anaya M.D. 09/13/2025 1:04 PM Discharge Plan Visit Data Chief Complaint: Urinary Symptoms Stated Complaint: URINARY SYMPTOMS, DROWSINESS ED Provider: Leonid Hazel Discharge Problem: Acute UTI, Weakness, Confusion, Fall Patient Disposition: Being Evaluated by Hospitalist Condition: Fair Forms Stand Alone Forms: My [facility] Prescriptions Prescriptions: No Action diltiazem HCl [Cartia XT] 180 mg capsule,extended release 24hr 360 mg PO QAM Hold Instructions: Resume on 04/26/25. aspirin 81 mg Tablet,Delayed Release (Dr/Ec) 81 mg PO DAILY tramadol 50 mg tablet 50 mg PO Q6H PRN (Reason: PAIN/SEVERE PAIN) pantoprazole 40 mg tablet,delayed release (DR/EC) 40 mg PO QAM ferrous sulfate [iron] 325 mg (65 mg iron) Tablet 325 mg PO WK Hold Instructions: Resume on 04/26/25. gabapentin 300 mg Capsule 300 mg PO TID Hold Instructions: Resume on 04/22/25. hydroxyzine HCl 25 mg Tablet 12.5 - 25 mg PO Q6H PRN (Reason: Anxiety) hydrochlorothiazide 25 mg tablet 25 mg PO QAM Hold Instructions: Resume on 04/23/25. dicyclomine 10 mg capsule 10 mg PO BID PRN (Reason: ABD CRAMPING) rosuvastatin 5 mg tablet 5 mg PO QAM senna 8.6 mg Capsule 8.6 mg PO BID cholecalciferol (vitamin D3) 1,250 mcg (50,000 unit) capsule 1,250 mcg PO WK Rx Instructions: [facility] tamsulosin 0.4 mg capsule 0.4 mg PO DAILY lorazepam 1 mg tablet 1 mg PO Q8H PRN (Reason: Anxiety) Referrals Referrals: Mayda De Luna MD [Primary Care Provider] - Discharge Problem: Fall Qualifiers: Encounter type: initial encounter Qualified Code(s): W19.XXXA - Unspecified fall, initial encounter
--- NOTE | 2025-09-13 13:05 | CT Scan Report ---
CT SCAN OF THE BRAIN WITHOUT IV CONTRAST CLINICAL HISTORY: Fall COMPARISON STUDY: CT of the brain dated 04/17/2025. TECHNIQUE: Unenhanced CT scan of the brain is performed from the vertex to the skull base. Images are reviewed in the axial, sagittal, coronal planes. A dose lowering technique was utilized adhering to the principles of ALARA. FINDINGS: Brain parenchyma: There is age-related involutional change noting mild subcortical and periventricul ar microangiopathic disease. There is no hemorrhage, mass effect, or evidence of acute territorial is chemia by CT criteria. Haney-white matter differentiation is preserved. No extra-axial fluid collectio n is seen. Ventricles, sulci, cisterns: Prominent secondary to involutional change. Intracranial vasculature: There is atherosclerotic calcification of the cavernous carotid and vertebr al arteries. Calvarium: Unremarkable. Soft tissues: There is a calcified sialolith in the right parotid gland. Sinuses and mastoids: Mild dependent mucosal thickening is noted in the maxillary antra. There is tra ce mucosal thickening ethmoid sinuses. The mastoid air cells are well pneumatized. Cerumen is noted i n the right external auditory canal. Orbits: The bony orbits are grossly intact. There are bilateral ocular lens implants. IMPRESSION: There is no hemorrhage, mass effect, or evidence of acute territorial ischemia by CT valentino abarca. ACT 112: Negative or not required by law. Electronically signed by: Brandan Anaya M.D. 09/13/2025 1:04 PM
--- NOTE | 2025-09-13 13:15 | CT Scan Report ---
CT SCAN OF THE ABDOMEN AND PELVIS WITH IV CONTRAST CLINICAL HISTORY: Fall. COMPARISON STUDY: CT of the abdomen and pelvis April 17, 2025. TECHNIQUE: Following the IV administration of 93 cc of Optiray 320, CT scan of the abdomen and pelvi s is performed from the lung bases to the proximal femora. Images are reviewed in the axial, sagittal , and coronal planes. IV contrast was administered without complication. A dose lowering technique wa s utilized adhering to the principles of ALARA. CT DOSE: 1556.16 mGy.cm FINDINGS: No hemoperitoneum or pneumoperitoneum is present. There is a small hiatal hernia. Biliary d uctal dilatation is similar to prior exams and likely related to cholecystectomy. Lateral segment hep atic cyst is noted. There are no suspicious hepatic lesions. No evidence for traumatic injury to the liver, spleen, adrenal glands, kidneys or pancreas. There is moderate bilateral renal cortical thinni ng. 1.3 cm right lower pole renal cyst is present. Additional subcentimeter bilateral renal lesions a re too small to characterize but favor cysts. There is no hydronephrosis. There is bladder wall thick ening with adjacent stranding. There are stable postoperative findings with a colorectal anastomosis. Mesenteric stranding is again noted. This is unchanged. A 3.2 x 2.3 cm irregular partially calcified mesenteric lesion on image [address] of October 09, 2021. This is similar to CT of April 17, 2025. Several thyroid fluid containing ventral hernias are present. No acute fractures with in the lumbar spine, pelvis or hips are identified. IMPRESSION: 1. No acute traumatic findings within the abdomen or pelvis. 2. Bladder wall thickening with adjacent stranding which could be correlated with urinalysis. 3. 3.2 x 2.3 cm irregular partially calcified mesenteric lesion, similar to CT of April 17, 2025. This remains indeterminate but decreased when compared to CT of October 09, 2011. Stable mesenteric stra nding. 4. No significant change in biliary ductal dilatation. This is likely related to cholecystectomy alth ough could be correlated with liver function tests. ACT 112: Negative or not required by law. Electronically signed by: Po Hartmann M.D. 09/13/2025 1:13 PM
[2025-09-13] MEDS: CEFEPIME 2000MG 2,000 MG/20 ML SYR IV STA (13:52)
[2025-09-13] MEDS: LABETALOL HCL IV 5 MG/ML 20ML IV STA (14:46)
--- NOTE | 2025-09-13 15:18 | History & Physical Report ---
Date of Service September 13, 2025 Assessment & Plan (1) Acute UTI: (2) Hypertensive urgency: (3) T2DM (type 2 diabetes mellitus): (4) HTN (hypertension): (5) COPD (chronic obstructive pulmonary disease): (6) CKD (chronic kidney disease) stage 3, GFR 30-59 ml/min: (7) Depression with anxiety: Plan This is an 80-year-old male who has significant past medical history of T2DM, HTN, COPD, asthma, CKD stage III and depression with anxiety who presents to ED secondary to dysuria and urinary frequency for a few days. Pt is generally a poor historian. Presents due to complaints of urinary urgency and dysuria. reports intermittent confusion and drowsy over the last several days. He does not appear grossly confused in ED. #Acute UTI #Generalized weakness admit to med tele prior hx of klebsiella UTI Tx with IV rocephin await culture PT/OT consults placed #Hypertensive urgency in setting of underlying hypertension pt asymptomatic, but appears anxious in ED due to not being present as she is being evaluated in separate room received IV labetolol in ED, will continue prn on HCTZ, diltiazem and losartan at home, he reported to attending physician he did not take BP meds at home #T2DM, diet controlled obtain a1c in a.m. last a1c was 6.5 in March no indication for coverage at [facility] time, monitor closely #DVT ppx: SQ Lovenox FULL CODE PCP: Mayda De Luna Dispo: admit to med tele, PT/OT, expect to remain hospitalized for 1-2 days Pt was seen and examined in collaboration with Dr. Flores, please see addendum I spent a total of 75 minutes coordinating, documenting and providing care for this patient excluding time spent in the performance of separately billed services or time spent by another provider/QHP. History of Present Illness Chief Complaint: Dysuria and urinary frequency x few days. Primary Care Provider: Mayda De Luna MD This is an 80-year-old male who has significant past medical history of T2DM, HTN, COPD, asthma, CKD stage III and depression with anxiety who presents to ED secondary to dysuria and urinary frequency for a few days. Patient is generally a poor historian and there is no family members at bedside. History provided from ED provider along with external chart review. Patient reports over the last few days having pain with urination and increased urinary urgency. According to ED provider the was previously present and was concerned regarding intermittent confusion and being drowsy over the last several days. She also reports not being himself for several months. Although poor historian he denies f/c/s, chest pain, sob, uri sx,n/v/d. He reports a decent appetite. In ED pt was hemodynamically stable. During his hospital stay his blood pressure did elevate over 200s. He does appear to be anxious over where is is. Allergies Allergy/AdvReac Type Severity Reaction Status Date / Time morphine AdvReac Severe PT HAD TOO Verified 04/17/25 17:06 MUCH POST OP-WAS PUT IN ICU FOR MONITORING Home Medications Medication Instructions Recorded Confirmed Type aspirin 81 mg tablet,delayed 81 mg PO DAILY 04/17/25 09/13/25 History release cholecalciferol (vitamin D3) 1,250 1,250 mcg PO WK 04/17/25 09/13/25 History mcg (50,000 unit) capsule dicyclomine 10 mg capsule 10 mg PO BID PRN ABD CRAMPING 04/17/25 09/13/25 History diltiazem HCl 180 mg 360 mg PO QAM 04/17/25 09/13/25 History capsule,extended release 24 hr (Cartia XT) ferrous sulfate 325 mg (65 mg 325 mg PO WK 04/17/25 09/13/25 History iron) tablet (iron) gabapentin 300 mg capsule 300 mg PO TID 04/17/25 09/13/25 History hydrochlorothiazide 25 mg tablet 25 mg PO QAM 04/17/25 09/13/25 History hydroxyzine HCl 25 mg tablet 12.5 - 25 mg PO Q6H PRN Anxiety 04/17/25 09/13/25 History pantoprazole 40 mg tablet,delayed 40 mg PO QAM 04/17/25 09/13/25 History release rosuvastatin 5 mg tablet 5 mg PO QAM 04/17/25 09/13/25 History sennosides 8.6 mg capsule (senna) 8.6 mg PO BID 04/17/25 09/13/25 History tramadol 50 mg tablet 50 mg PO Q6H PRN PAIN/SEVERE PAIN 04/17/25 09/13/25 History lorazepam 1 mg tablet 1 mg PO Q8H PRN Anxiety 09/13/25 09/13/25 History losartan 100 mg tablet 100 mg PO DAILY 09/13/25 09/13/25 History tamsulosin 0.4 mg capsule 0.4 mg PO DAILY 09/13/25 09/13/25 History Past Med/Surg History Problem List (Updated 09/13/25 @ 15:13 by Morelia De La Torre PA-C) Hypertensive urgency Fall (Acute) Confusion (Acute) Weakness (Acute) Acute UTI (Acute) JOSTIN (acute kidney injury) Sepsis Rhabdomyolysis (Acute) Weakness (Acute) COPD exacerbation (Acute) Chest tightness (Acute) Esophagitis (Acute) Humerus fracture (Acute) 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) Medical History (Updated 09/13/25 @ 15:13 by Morelia De La Torre PA-C) Depression with anxiety CKD (chronic kidney disease) stage 3, GFR 30-59 ml/min COPD (chronic obstructive pulmonary disease) HTN (hypertension) T2DM (type 2 diabetes mellitus) Surgical History (Updated 09/13/25 @ 15:10 by Morelia De La Torre PA-C) Hx of hernia repair Hx of tonsillectomy Hx laparoscopic cholecystectomy History of partial colectomy Family History (Updated 09/13/25 @ 15:10 by Morelia De La Torre PA-C) Mother Heart disease Social History (Updated 09/13/25 @ 15:11 by Morelia De La Torre PA-C) Smoking Status: Former smoker packs per day: 0.3; Smoking End Date: 40 years; Do You Dip or Chew Tobacco: No; Tobacco Cessation Education Requested by Patient: No Hx Alcohol Use: No Hx Substance Use: No Preferred Language: Yi Communication Ability: Effective Home Mortgage Disclosure Act Specialist Required: No Beliefs That Will Affect Care: None Current Living Situation: Spouse Feels Safe at Home: Yes Assistive Devices: None Review of Systems Review of Systems: All systems reviewed & are unremarkable except as noted in HPI & below Physical Exam Physical Exam: Constitutional: WD/WN, nontoxic appearing, vitals as above, NAD, sitting up in bed, pleasant, conversing easily Head: Normocephalic, Atraumatic Eyes: conjunctivae normal, anicteric sclerae ENMT: external ear and nose normal, oropharynx normal Neck: trachea midline, no thyromegaly normal visual inspection Respiratory: CTAB, no W/R/R, normal inspection, no accessory muscle use Cardiovascular: RRR, no murmur, no edema Chest: normal inspection of chest Abdomen: S, NT, ND, +BS x 4 Musculoskeletal: no cyanosis or clubbing, extremities AROM x 4 Skin: no rashes, warm and dry normal turgor Neurologic: PERRL, EOMI, accommodation nl, no face palsy, no dysarthria CN's II-XI intact bilaterally and moves all extremities Psychiatric: A+Ox3, was not aware of the month, euthymic affect Results & Data Results & Data Vital Signs (Past 12 Hours) Vital Signs Temp Pulse Pulse Resp BP BP Pulse Ox 09/13/25 15:01 192/106 H 09/13/25 14:46 86 218/119 H 09/13/25 14:45 89 218/119 H 09/13/25 14:31 37.2 C 84 16 228/114 H 98 09/13/25 13:09 80 09/13/25 13:05 78 22 212/111 H 97 09/13/25 13:04 98 09/13/25 11:12 36.6 C 107 H 18 149/84 H 93 O2 Del Method 09/13/25 15:01 09/13/25 14:46 09/13/25 14:45 09/13/25 14:31 Room Air 09/13/25 13:09 09/13/25 13:05 Room Air 09/13/25 13:04 Room Air 09/13/25 11:12 Room Air Laboratory Results I have independently reviewed and interpreted patient's admitting labs including CBC, CMP, trop, lipase, procal, urine Diagnostic Findings Abdomen/Pelvis CT 09/13/25 11:22 CT SCAN OF THE ABDOMEN AND PELVIS WITH IV CONTRAST CLINICAL HISTORY: Fall. COMPARISON STUDY: CT of the abdomen and pelvis April 17, 2025. TECHNIQUE: Following the IV administration of 93 cc of Optiray 320, CT scan of the abdomen and pelvis is performed from the lung bases to the proximal femora. Images are reviewed in the axial, sagittal, and coronal planes. IV contrast was administered without complication. A dose lowering technique was utilized adhering to the principles of ALARA. CT DOSE: 1556.16 mGy.cm FINDINGS: No hemoperitoneum or pneumoperitoneum is present. There is a small hiatal hernia. Biliary ductal dilatation is similar to prior exams and likely related to cholecystectomy. Lateral segment hepatic cyst is noted. There are no suspicious hepatic lesions. No evidence for traumatic injury to the liver, spleen, adrenal glands, kidneys or pancreas. There is moderate bilateral renal cortical thinning. 1.3 cm right lower pole renal cyst is present. Additional subcentimeter bilateral renal lesions are too small to characterize but favor cysts. There is no hydronephrosis. There is bladder wall thickening with adjacent stranding. There are stable postoperative findings with a colorectal anastomosis. Mesenteric stranding is again noted. This is unchanged. A 3.2 x 2.3 cm irregular partially calcified mesenteric lesion on image [address] of October 09, 2021. This is similar to CT of April 17, 2025. Several thyroid fluid containing ventral hernias are present. No acute fractures within the lumbar spine, pelvis or hips are identified. IMPRESSION: 1. No acute traumatic findings within the abdomen or pelvis. 2. Bladder wall thickening with adjacent stranding which could be correlated with urinalysis. 3. 3.2 x 2.3 cm irregular partially calcified mesenteric lesion, similar to CT of April 17, 2025. This remains indeterminate but decreased when compared to CT of October 09, 2011. Stable mesenteric stranding. 4. No significant change in biliary ductal dilatation. This is likely related to cholecystectomy although could be correlated with liver function tests. ACT 112: Negative or not required by law. Electronically signed by: Po Hartmann M.D. 09/13/2025 1:[address] 09/13/25 11:22 CT SCAN OF THE BRAIN WITHOUT IV CONTRAST CLINICAL HISTORY: Fall COMPARISON STUDY: CT of the brain dated 04/17/2025. TECHNIQUE: Unenhanced CT scan of the brain is performed from the vertex to the skull base. Images are reviewed in the axial, sagittal, coronal planes. A dose lowering technique was utilized adhering to the principles of ALARA. FINDINGS: Brain parenchyma: There is age-related involutional change noting mild subcortical and periventricular microangiopathic disease. There is no hemorrhage, mass effect, or evidence of acute territorial ischemia by CT criteria. Haney-white matter differentiation is preserved. No extra-axial fluid collection is seen. Ventricles, sulci, cisterns: Prominent secondary to involutional change. Intracranial vasculature: There is atherosclerotic calcification of the cavernous carotid and vertebral arteries. Calvarium: Unremarkable. Soft tissues: There is a calcified sialolith in the right parotid gland. Sinuses and mastoids: Mild dependent mucosal thickening is noted in the maxillary antra. There is trace mucosal thickening ethmoid sinuses. The mastoid air cells are well pneumatized. Cerumen is noted in the right external auditory canal. Orbits: The bony orbits are grossly intact. There are bilateral ocular lens implants. IMPRESSION: There is no hemorrhage, mass effect, or evidence of acute territorial ischemia by CT criteria. ACT 112: Negative or not required by law. Electronically signed by: Brandan Anaya M.D. 09/13/2025 1:04 PM Medications Administered Medication List Discontinued Medications Sodium Chloride (Nss) 1,000 mls @ 999 mls/hr IV .Q1H1M STA Stop: 09/13/25 12:22 Last Admin: 09/13/25 12:58 Dose: 999 mls/hr Documented By: ELAH Cefepime HCl (Maxipime 2000mg) 2,000 mg in 20 mls @ 5 mls/min IV NOW STA; Protocol Stop: 09/13/25 13:50 Last Admin: 09/13/25 13:52 Dose: 5 mls/min Documented By: LEAH Labetalol HCl (Labetalol Hcl Iv 5 Mg/Ml 20ml) 10 mg IV NOW STA Stop: 09/13/25 14:39 Last Admin: 09/13/25 14:46 Dose: 10 mg Documented By: SAI ECG Additional Comments: I have independently reviewed and interpreted patient's admitting EKG which revealed: 102 sinus tachycardia, no st or t wave changes COVID-19 Results Results COVID-19 Adm Lab Results: RBC 4.51 M/uL (4.70-6.10) L 09/13/25 WBC 8.84 K/ul (4.8-10.8) 09/13/25 Hgb 11.5 g/dL (14.0-18.0) L 09/13/25 Hct 36.2 % (42.0-52.0) L 09/13/25 Plt Count 367 K/uL (130-400) 09/13/25 Neutrophils (%) (Auto) 71.4 % 09/13/25 Lymphocytes (%) (Auto) 15.0 % 09/13/25 Monocytes # (Auto) 0.60 K/uL (0.11-0.59) H 09/13/25 Eosinophils # (Auto) 0.51 K/uL (0.00-0.50) H 09/13/25 Immature Granulocyte % (Auto) 0.3 % 09/13/25 Neutrophils # (Auto) 6.31 K/uL (1.40-6.50) 09/13/25 Lymphocytes # (Auto) 1.33 K/uL (1.20-3.40) 09/13/25 Monocytes # (Auto) 0.60 K/uL (0.11-0.59) H 09/13/25 Eosinophils # (Auto) 0.51 K/uL (0.00-0.50) H 09/13/25 Basophils # (Auto) 0.06 K/uL (0.00-0.20) 09/13/25 Immature Granulocyte # (Auto) 0.03 K/uL (0.01-0.20) 5 Na 137 mmol/L (136-145) 09/13/25 K 4.3 mmol/L (3.5-5.1) 09/13/25 Cl 105 mmol/L (98-107) 09/13/25 CO2 25 mmol/L (21-32) 09/13/25 Anion Gap 7 (3-11) 09/13/25 BUN 13 mg/dl (6-23) 09/13/25 Creatinine 1.07 mg/dl (0.6-1.4) 09/13/25 BUN/Creatinine Ratio 12.1 (10-20) 09/13/25 Glucose Level 127 mg/dl (70-99(Fasting)) H 09/13/25 Ca 9.0 mg/dl (8.6-10.3) 09/13/25 Total Bilirubin 0.6 mg/dl (0.2-1.0) 09/13/25 AST/SGOT 16 U/L (13-39) 09/13/25 ALT/SGPT 10 U/L (7-52) 09/13/25 Alkaline Phosphatase 80 U/L (34-104) 09/13/25 Total Protein 7.1 gm/dl (6.0-8.3) 09/13/25 Albumin 3.7 gm/dl (3.4-5.0) 09/13/25 Globulin 3.4 gm/dl (2.5-4.0) 09/13/25 Albumin/Globulin Ratio 1.1 (0.9-2) 09/13/25 Procalcitonin 0.06 ng/ml (0-0.5) 09/13/25 INR 1.1 (0.9-1.1) 09/13/25 Code Status & VTE Plan Code Status FULL CODE VTE Prophylaxis Plan VTE Prophylaxis will be ordered: Yes Supervising Physician Co-Signing Physician Notes 80 yo M PMH of T2DM, HTN, COPD, Asthma, CKD III and depression presents w/ pain and burning w/ passing urine a/w lower belly pain for "sometime". Pt reports he didn't take his AM BP meds. Pt denies fever, sorethroat, cough, chest pain , palpitation. Reports moving bowels ok. Labs reviewed. WBC wnl, UA s/o UTI CTAP s/o cystitis CTH w/ no acute finding. UTI: rocephin, f/u culture HTN urgency: administer AM BP meds, add prn labetalol iv. On exam: pt lethargic, answers appropriately, mild lower abd tender, -ve ble edema, rest of exam as above. total time spent independently: 22 minutes. I have seen and examined the patient and have discussed the case with the provider above. I agree with the assessment and plan as stated.
[2025-09-13] MEDS: hydroCHLOROthiazide 25 MG TAB PO STA (15:34)
[2025-09-13] MEDS: LOSARTAN POTASSIUM 50 MG TAB PO STA (15:35)
[2025-09-13] MEDS ORDERED: ALUMINUM/MAGNESIUM SUSP 30 ML UDC PO PRN (17:04)
[2025-09-13] MEDS ORDERED: ACETAMINOPHEN 325 MG TAB PO PRN (17:04)
[2025-09-13] MEDS ORDERED: LABETALOL HCL IV 5 MG/ML 20ML IV PRN (17:04)
[2025-09-13] MEDS ORDERED: MELATONIN 3 MG TAB PO PRN (17:04)
[2025-09-13] MEDS ORDERED: MAGNESIUM HYDROXIDE SUSP 30 ML UDC PO PRN (17:04)
[2025-09-13] MEDS ORDERED: ONDANSETRON INJ 2 MG/ML 2 ML VIAL IV PRN (17:04)
[2025-09-13] MEDS ORDERED: POLYETHYLENE (MIRALAX) 17 GM PACK PO PRN (17:04)
[2025-09-13] MEDS: LABETALOL HCL IV 5 MG/ML 20ML IV PRN (17:36)
[2025-09-13] MEDS: FERROUS SULFATE 325 MG TAB PO SCH (18:18)
[2025-09-13] MEDS: cefTRIAXone SODIUM 2,000 MG/50 ML BAG IV SCH (18:18)
[2025-09-13] MEDS: SENNA 8.6 MG TAB PO SCH (21:28)
[2025-09-13] MEDS: ENOXAPARIN INJ 40 MG/0.4 ML SYR SQ SCH (21:28)
[2025-09-13] MEDS: GABAPENTIN 300 MG CAP PO SCH (21:28)
[2025-09-14 04:26] LABS: Amphetamines+Metham, Urine Neg (Neg); MDMA (Ecstacy), Urine Neg (Neg); Marijuana, Urine Neg (Neg)
--- NOTE | 2025-09-14 05:49 | Electrocardiogram Report ---
Test Reason : Blood Pressure : */* mmHG Vent. Rate : 102 BPM Atrial Rate : 102 BPM P-R Int : 130 ms QRS Dur : 68 ms QT Int : 356 ms P-R-T Axes : 71 33 61 degrees QTcB Int : 463 ms Sinus tachycardia Otherwise normal ECG When compared with ECG of 17-Apr-2025 15:18, Premature ventricular complexes are no longer Present Confirmed by Shahbaz Cadena ([id number]) on 09/14/2025 5:49:48 AM Referred By: Confirmed By: Shahbaz Cadena
[2025-09-14 07:00] LABS: Hematocrit (blood only) 34.7 % (42.0-52.0); Hemoglobin 11.0 g/dL (14.0-18.0); Mean Corpuscular Hemoglobin 25.7 pg (25.0-34.0); Mean Corpuscular Volume 81.1 fL (80.0-100.0); Platelet Count 326 K/uL (130-400); RDW Standard Deviation 48.1 fL (36.4-46.3); Red Blood Count 4.28 M/uL (4.70-6.10); White Blood Count 6.75 K/ul (4.8-10.8)
[2025-09-14 07:24] LABS: Anion Gap 8.0 (3-11); Blood Urea Nitrogen 10.0 mg/dl (6-23); Calcium 8.9 mg/dl (8.6-10.3); Carbon Dioxide 25.0 mmol/L (21-32); Chloride 106.0 mmol/L (98-107); Creatinine Clr Calc Pharmacy 49.0 ml/min; Glucose 86.0 mg/dl (70-99(Fasting)); Iron 152.0 mcg/dl (35-175); Potassium 4.0 mmol/L (3.5-5.1); Sodium 139.0 mmol/L (136-145); Total Iron Binding Cap Calc 347.0 mcg/dl (250-450); Transferrin 248.0 mg/dl (200-360); Transferrin (FE) Percent Satur 44.0 % (20-50)
[2025-09-14 07:48] LABS: Folate (Folic Acid),Ser orPlas 6.56 ng/ml (>5.38)
[2025-09-14 07:49] LABS: Vitamin B12 190.0 pg/ml (180-914)
[2025-09-14] MEDS: ROSUVASTATIN CALCIUM 5 MG TAB PO SCH (08:44)
[2025-09-14] MEDS: ADVANCED PROBIOTIC 625 MG CAPSULE PO SCH (08:44)
[2025-09-14] MEDS: CHOLECALCIFEROL 125 MCG (5,000 UNITS) TAB PO SCH (08:44)
[2025-09-14] MEDS: ASPIRIN 81 MG ECTAB PO SCH (08:45)
[2025-09-14] MEDS: LOSARTAN POTASSIUM 50 MG TAB PO SCH (08:45)
[2025-09-14] MEDS: TAMSULOSIN HCL 0.4 MG CAP PO SCH (08:45)
[2025-09-14] MEDS: hydroCHLOROthiazide 25 MG TAB PO SCH (08:45)
[2025-09-14 09:14] LABS: Hemoglobin A1C 6.0 % (4.5-5.6)
[2025-09-14] MEDS: DAPTOmycin 350 MG in SYRINGE 0 ML IV SCH (14:55)
--- NOTE | 2025-09-14 16:32 | Hospitalist Progress Note ---
Date of Service September 14, 2025 Assessment & Plan (1) Acute UTI: (2) Hypertensive urgency: (3) T2DM (type 2 diabetes mellitus): (4) HTN (hypertension): (5) COPD (chronic obstructive pulmonary disease): (6) CKD (chronic kidney disease) stage 3, GFR 30-59 ml/min: (7) Depression with anxiety: Plan This is an 80-year-old male who has significant past medical history of T2DM, HTN, COPD, asthma, CKD stage III and depression with anxiety who presents to ED secondary to dysuria and urinary frequency for a few days. Pt is generally a poor historian. Presents due to complaints of urinary urgency and dysuria. reports intermittent confusion and drowsy over the last several days. He does not appear grossly confused in ED. #Acute UTI #Generalized weakness admit to [facility] prior hx of klebsiella UTI Tx with IV rocephin await culture PT/OT consults placed 09/14 afebrile Mental status back to normal, oriented x 3 Urine culture: Enterococcus faecalis, sensitivities pending Blood culture: Pending Continue daptomycin 350 mg IV every 24 hours Follow-up cultures #Hypertensive urgency in setting of underlying hypertension pt asymptomatic, but appears anxious in ED due to not being present as she is being evaluated in separate room received IV labetolol in ED, will continue prn on HCTZ, diltiazem and losartan at home 09/14 Blood pressure on the higher side Asymptomatic Possible acute illness, anxiety contributing Continue usual medications except for HCTZ (received IV contrast on admission) As needed labetalol ordered Monitor closely #T2DM, diet controlled obtain a1c : 6.0 no indication for coverage at thie time, monitor closely #DVT ppx: SCDs for now Hold pharmacologic anticoagulation for DVT prophylaxis in light of elevated blood pressure FULL CODE PCP: Mayda De Luna Dispo: admit to [facility] tele, PT/OT plan of care discussed with patient and his significant other Lidia at bedside in detail and at length all questions answered they are understanding, agreeable, comfortable with the plan of care Admission and Anticipated Discharge Date Admission Date: September 13, 2025 Subjective seen resting in bed, comfortable, Awake and alert, oriented x 3 Answering questions appropriately States he feels fine overall No dysuria, reports some urinary frequency No fevers or chills, abdominal pain, nausea vomiting Patient requesting for discharge today- Explained medical condition, patient agreeable to remain in hospitalFor continuation of care Review of Systems Review of Systems: all noted and negative except for above Physical Exam Physical Exam: General- oriented x 3, not in distress, speaks in sentences with no effort or accessory muscle use Eyes- anicteric Neck- no JVD Lungs- clear breath sounds bilaterally, no rales/wheezes Heart- normal rate, regular rhythm; no murmurs Abdomen- normal bowel sounds, nondistended, soft, nontender no CVA tenderness Extremities- no pretibial edema, no calf tenderness Neuro- alert, oriented x 3; no gross focal neurologic deficits Skin- warm & dry Results & Data Results & Data Vital Signs (Past 12 Hours) Vital Signs Temp Pulse Pulse Resp BP BP Pulse Ox 09/14/25 15:51 36.6 C 78 20 155/71 H 95 09/14/25 13:32 82 171/82 H 09/14/25 11:17 36.7 C 70 16 187/69 H 97 09/14/25 07:58 36.5 C 73 16 215/88 H 97 09/14/25 07:32 68 O2 Del Method 09/14/25 15:51 Room Air 09/14/25 13:32 09/14/25 11:17 Room Air 09/14/25 07:58 Room Air 09/14/25 07:32 all noted and reviewed including below
[2025-09-14 19:36] VITALS: RESP 18
[2025-09-15 07:57] LABS: Hematocrit (blood only) 33.9 % (42.0-52.0); Hemoglobin 10.8 g/dL (14.0-18.0); Immature Granulocytes # (auto) 0.01 K/uL (0.01-0.20); Immature Granulocytes % (auto) 0.1 %; Mean Corpuscular Hemoglobin 25.5 pg (25.0-34.0); Mean Corpuscular Volume 80.0 fL (80.0-100.0); Platelet Count 352 K/uL (130-400); RDW Standard Deviation 45.9 fL (36.4-46.3); Red Blood Count 4.24 M/uL (4.70-6.10); White Blood Count 7.64 K/ul (4.8-10.8)
[2025-09-15 08:13] LABS: Alanine Aminotransferase 7.0 U/L (7-52); Albumin Globulin Ratio 1.3 (0.9-2); Albumin Level 3.7 gm/dl (3.4-5.0); Alkaline Phosphatase 71.0 U/L (34-104); Anion Gap 10.0 (3-11); Bilirubin,Total 0.6 mg/dl (0.2-1.0); Blood Urea Nitrogen 10.0 mg/dl (6-23); Calcium 9.3 mg/dl (8.6-10.3); Carbon Dioxide 24.0 mmol/L (21-32); Chloride 103.0 mmol/L (98-107); Creatinine Clr Calc Pharmacy 50.4 ml/min; Globulin 2.8 gm/dl (2.5-4.0); Glucose 117.0 mg/dl (70-99(Fasting)); Potassium 3.7 mmol/L (3.5-5.1); Sodium 137.0 mmol/L (136-145); Total Protein 6.5 gm/dl (6.0-8.3)
[2025-09-15 11:22] VITALS: TEMP 98.1; O2SAT 97
[2025-09-15 14:50] VITALS: BP 155/71; PULSE 78
--- NOTE | 2025-09-15 16:08 | Discharge Summary ---
Discharge Summary Date of Service September 15, 2025 Principal Dx & Hospital Course #1 = Principal Diagnosis (1) Acute UTI: (2) Hypertensive urgency: (3) T2DM (type 2 diabetes mellitus): (4) HTN (hypertension): (5) COPD (chronic obstructive pulmonary disease): (6) CKD (chronic kidney disease) stage 3, GFR 30-59 ml/min: (7) Depression with anxiety: Plan This is an 80-year-old male who has significant past medical history of T2DM, HTN, COPD, asthma, CKD stage III and depression with anxiety who presents to ED secondary to dysuria and urinary frequency for a few days. Pt is generally a poor historian. Presents due to complaints of urinary urgency and dysuria. reports intermittent confusion and drowsy over the last several days. He does not appear grossly confused in ED. #Acute UTI #Generalized weakness admit to med tele prior hx of klebsiella UTI Tx with IV rocephin await culture PT/OT consults placed 09/14 afebrile Mental status back to normal, oriented x 3 Urine culture: Enterococcus faecalis, sensitivities pending Blood culture: Pending Continue daptomycin 350 mg IV every 24 hours Follow-up cultures #Hypertensive urgency in setting of underlying hypertension pt asymptomatic, but appears anxious in ED due to not being present as she is being evaluated in separate room received IV labetolol in ED, will continue prn on HCTZ, diltiazem and losartan at home 09/14 Blood pressure on the higher side Asymptomatic Possible acute illness, anxiety contributing Continue usual medications except for HCTZ (received IV contrast on admission) As needed labetalol ordered Monitor closely #T2DM, diet controlled obtain a1c : 6.0 no indication for coverage at thie time, monitor closely #DVT ppx: SCDs for now Hold pharmacologic anticoagulation for DVT prophylaxis in light of elevated blood pressure FULL CODE PCP: Mayda De Luna Dispo: admit to med tele, PT/OT plan of care discussed with patient and his significant other Lidia at bedside in detail and at length all questions answered they are understanding, agreeable, comfortable with the plan of care Notes For Next Care Provider This is an 80-year-old male who has significant past medical history of T2DM, HTN, COPD, asthma, CKD stage III and depression with anxiety who presents to ED secondary to dysuria and urinary frequency for a few days. Found to have complicated UTI, admitted to medicine. On medicine, grew enterobacter on urine, started on daptomycin. Patient improved to baseline and wanted to go home on 09/15/2025. Patient discharged with augmentin (urinary tract dosing) based on susceptibilities, medically stable for discharge. PT/OT cleared patient for homegoing. To do: -Incidental Findings: calcified mesenteric lesion Medication Changes From Visit -see below Admission HPI Per Admitting Provider This is an 80-year-old male who has significant past medical history of T2DM, HTN, COPD, asthma, CKD stage III and depression with anxiety who presents to ED secondary to dysuria and urinary frequency for a few days. Patient is generally a poor historian and there is no family members at bedside. History provided from ED provider along with external chart review. Patient reports over the last few days having pain with urination and increased urinary urgency. According to ED provider the was previously present and was concerned regarding intermittent confusion and being drowsy over the last several days. She also reports not being himself for several months. Although poor historian he denies f/c/s, chest pain, sob, uri sx,n/v/d. He reports a decent appetite. In ED pt was hemodynamically stable. During his hospital stay his blood pressure did elevate over 200s. He does appear to be anxious over where is is. Discharge Exam Gen: A&O 3 NAD HEENT: NCAT, EOMI, not icteric. External ears normal. No rhinorrhea. Moist mucous membranes. Neck: Supple, full range of motion, no observable masses, No meningeal sign. Lungs: No Respiratory distress. CV: RRR, no edema. Abdomen: Soft, nondistended, No rebound tenderness. MSK: No joint swelling, no redness. Skin: No rashes, petechiae, lesions. Normal color per patient. Neuro: Normal Gait, Grossly intact. Psych: Appropriate for situation. Updated Medication List Medication Instructions Recorded Confirmed Type aspirin 81 mg tablet,delayed 81 mg PO DAILY 04/17/25 09/13/25 History release cholecalciferol (vitamin D3) 1,250 1,250 mcg PO WK 04/17/25 09/13/25 History mcg (50,000 unit) capsule dicyclomine 10 mg capsule 10 mg PO BID PRN ABD CRAMPING 04/17/25 09/13/25 History diltiazem HCl 180 mg 360 mg PO QAM 04/17/25 09/13/25 History capsule,extended release 24 hr (Cartia XT) ferrous sulfate 325 mg (65 mg 325 mg PO WK 04/17/25 09/13/25 History iron) tablet (iron) gabapentin 300 mg capsule 300 mg PO TID 04/17/25 09/13/25 History hydrochlorothiazide 25 mg tablet 25 mg PO QAM 04/17/25 09/13/25 History pantoprazole 40 mg tablet,delayed 40 mg PO QAM 04/17/25 09/13/25 History release rosuvastatin 5 mg tablet 5 mg PO QAM 04/17/25 09/13/25 History sennosides 8.6 mg capsule (senna) 8.6 mg PO BID 04/17/25 09/13/25 History tramadol 50 mg tablet 50 mg PO Q6H PRN PAIN/SEVERE PAIN 04/17/25 09/13/25 History lorazepam 1 mg tablet 1 mg PO Q8H PRN Anxiety 09/13/25 09/13/25 History losartan 100 mg tablet 100 mg PO DAILY 09/13/25 09/13/25 History tamsulosin 0.4 mg capsule 0.4 mg PO DAILY 09/13/25 09/13/25 History L.acidop,casei,lactis,rham-B.lact,nikia 1 cap PO DAILY 7 days #7 caps 09/15/25 Rx 625 mg (10 billion cell) capsule (Advanced Probiotic) amoxicillin 500 mg-potassium 1 tab PO Q8 7 days #21 tabs 09/15/25 Rx clavulanate 125 mg tablet (Augmentin) Hospital Stay Data Consultations 09/13/25 14:18 ED Decision to Admit Stat Diagnostic Imagining Performed 09/13/25 11:22 CT abd pelvis IV con only Stat CT head/brain wo con Stat Pending Results Patient Have Any Pending Studies at Discharge: No Discharge Instructions Given to Patient (Per Discharging Provider) Diagnosis: complicated enterobacter UTI Incidental Findings: calcified mesenteric lesion Follow Ups: PCP, urology 1. Please finish course of antibiotics as prescribed. 2. Please stay hydrated! Total Time Total Time Spent Total Time Spent (In Minutes): I spent a total of 35 minutes in direct patient care, including [id number] time with the patient and/or family, reviewing medical records, ordering and reviewing diagnostic tests, and coordinating care with other healthcare providers. This time includes: history taking, physical examination, medical decision making, counseling, ECG interpretation, imaging interpretation, lab interpretation, orders, and education, excluding time spent in the performance of separately billed services.
== END 2025-09-15 14:50 | disposition home or self-care (01) | DRG 690 ==
LOC: ED 11:02 → 2N 14:29 → SUATTDRO 14:29 → 2N 16:34

== ENCOUNTER 2025-10-17 10:07 | Inpatient (IN) ==
[2025-10-17] MEDS: OPTIRAY 320 125ml IV ONE (10:35)
--- NOTE | 2025-10-17 10:38 | Emergency Department Note ---
Impression & Plan Altered mental status, Acute UTI, Leukocytosis, Pneumonia, Anemia, Acute kidney injury, Hypokalemia ED Provider Note NAME: PAVAN DRAPER AGE: 80 SEX: M : 1945 ARRIVES VIA: Ambulance INFORMANT: [Patient][EMS, nursing] ED PROVIDER(S): [Brandan Sales MD] Patient first seen by me at 1015 CHIEF COMPLAINT: Altered mental state HISTORY OF PRESENT ILLNESS: Patient is an 80-year-old male who presents with an altered mental status. The last time that he was at baseline is unclear. He presents by ambulance. Apparently, he was found by family wandering and confused. The patient can give no history at this time. The patient's son did call to the ED department. Apparently, his dad was a bit sleepier last night, he fell asleep on the couch, he just seemed more tired. This morning, when he saw his dad, his dad had unintelligible speech and was quite confused, the ambulance was called. No reported trauma. Thus, last known well is sometime yesterday evening, over 12 hours ago Of note, as per the son, the patient was recently prescribed some new medications. PMHx/PSHx/Social Hx: See Below PHYSICAL EXAM: GENERAL: Patient is in no acute distress. HEENT: No acute trauma, normocephalic atraumatic, mucous membranes moist, no nasal congestion. Pupils equal and reactive to light. NECK: No stridor, no adenopathy, no meningismus, trachea is midline. LUNGS: Clear to auscultation bilaterally, no wheeze, no rhonchi, breath sounds equal. HEART: Mildly tachycardic, regular rhythm, no murmurs. ABDOMEN: Soft, mildly diffusely tender. Some bladder distention was suspected. EXTREMITIES: No cyanosis, full range of motion of all the joints without pain or difficulty. NEUROLOGIC: Confused, there may be a subtle right facial droop. Right arm appears weaker than the left. He cannot follow commands, his speech is somewhat garbled and he is unable to answer questions appropriately. SKIN: No jaundice, no diaphoresis. Groin: He has a significant phimosis, the penile meatus/penile head cannot be visualized. DIFFERENTIAL DIAGNOSIS: Stroke, infection, electrolyte imbalance, medication interaction, among others. EMERGENCY DEPARTMENT PROCEDURES: Bladder scan showed just over 200 cc, no significant retention. MEDICAL DECISION MAKING: There is a significant leukocytosis, this of course is consistent with infection. A mild anemia was seen, this is a baseline finding. Platelet count somewhat high at 456. No coagulopathy. VBG did not show acidosis or significant CO2 retention. Potassium was a bit low at 3.1. Creatinine was elevated consistent with some mild acute kidney injury/dehydration. Lactic acid level was not elevated making severe sepsis less likely. There was no concerning liver enzyme elevation. Ammonia level was not elevated. ECG showed a sinus rhythm, no acute ST elevation. Cardiac enzyme testing x 1 is not consistent with acute cardiac injury. Urinalysis was consistent with infection. Chest film showed a potential early pneumonia along the right lung. COVID, influenza and RSV test were negative. Brain CT showed no acute bleed or mass effect. CT angio of the head and neck were performed, there was no clot although, there was some stenosis seen in the cervical arteries. Abdominal and pelvis CT shows a potential right lung pneumonia. There was no obvious acute surgical pathology within the abdomen, no bowel obstruction. Bladder scan showed mild urinary retention, no need for a Hair catheter. On exam, the patient was confused, he was a very poor historian. A stroke alert was called, stroke neurology from [place] was involved, there was no indication for TNK, admission with further stroke workup was suggested. The patient did receive IV saline, 1.5 L. He was given IV potassium, IV Zosyn, patient received 2 mg of IV Haldol. He eventually received 1 mg of IV Ativan and another 2 mg of IV Haldol. The Haldol and Ativan were used to help with agitation. The patient has infection as the cause for his change in mental status. Stroke is still a possibility but seems less likely. For now, hospitalization is clearly indicated. I spoke with the patient's family, this was done by phone. I spoke with case management, the on-call hospitalist was consulted. Prior/Outside records/notes reviewed: Today's EMS notes describing his presentation and transport to this hospital. ECG per my interpretation: Indication was possible stroke. The ECG shows a normal sinus rhythm with some nonspecific ST change. There is a rate of 100. There is no obvious ST elevation, there are no PVCs. The QTc is 363. Continuous Cardiac Monitoring per my interpretation: An order was placed for continuous cardiac monitoring. The monitor shows a rate of 101 with sinus tachycardia. Imaging/x-ray results per my interpretation: Chest x-ray shows a potential early right lung pneumonia. The upper mediastinum was somewhat widened although, this appears chronic. Chronic Medical/Social conditions affecting care: Advanced age. Care/Management discussed with: [facility] stroke neurology-Dr. Montes De Oca. Case management and the on-call hospitalist. Level of care consideration(s): After review of the information above and other included data: --I believe the patient requires escalation of care to admission Critical Care Note: I have personally spent 55 minutes of critical care time in the direct management of this patient. This includes bedside care, interpretation of diagnostic studies, and testing, discussion with consultants, patient, and family members, and other required patient management activities. This 55 minutes is in excess of all separately billable procedures. 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) Medical History Depression with anxiety CKD (chronic kidney disease) stage 3, GFR 30-59 ml/min COPD (chronic obstructive pulmonary disease) HTN (hypertension) T2DM (type 2 diabetes mellitus) Surgical History (Updated 09/13/25 @ 15:10 by Morelia De La Torre PA-C) Hx of hernia repair Hx of tonsillectomy Hx laparoscopic cholecystectomy History of partial colectomy Family History (Updated 09/13/25 @ 15:10 by Morelia De La Torre PA-C) Mother Heart disease Social History Smoking Status: Unknown if ever smoked Tobacco Type: E-cigarettes / Vaping packs per day: 0.3; Second Hand Exposure: No; Do You Dip or Chew Tobacco: No; Hx Alcohol Use: No Hx Substance Use: No Preferred Language: [place] Communication Ability: Effective Casting Cleaner Required: No Beliefs That Will Affect Care: None Current Living Situation: Spouse Current Living Situation Comment: lives at home with Feels Safe at Home: Yes Assistive Devices: None Allergies Allergies Allergy/AdvReac Type Severity Reaction Status Date / Time morphine AdvReac Severe PT HAD TOO Verified 10/17/25 15:56 MUCH POST OP-WAS PUT IN ICU FOR MONITORING Home Meds Home Medications Medication Instructions Recorded Confirmed aspirin 81 mg tablet,delayed 81 mg PO DAILY 04/17/25 10/17/25 release gabapentin 300 mg capsule 300 mg PO TID 04/17/25 10/17/25 hydrochlorothiazide 25 mg tablet 25 mg PO QAM 04/17/25 10/17/25 pantoprazole 40 mg tablet,delayed 40 mg PO QAM 04/17/25 10/17/25 release rosuvastatin 5 mg tablet 5 mg PO QAM 04/17/25 10/17/25 sennosides 8.6 mg capsule (senna) 8.6 mg PO BID 04/17/25 10/17/25 tramadol 50 mg tablet 50 mg PO Q6H PRN PAIN/SEVERE PAIN 04/17/25 10/17/25 lorazepam 1 mg tablet 1 mg PO TID PRN Sleep 09/13/25 10/17/25 losartan 100 mg tablet 100 mg PO DAILY 09/13/25 10/17/25 diltiazem HCl 360 mg 360 mg PO QAM 10/17/25 10/17/25 capsule,extended release 24 hr hyoscyamine sulfate 0.125 mg tablet 0.125 mg PO TID PRN cramping 10/17/25 10/17/25 ondansetron 4 mg disintegrating 4 mg PO Q8 PRN Nausea 10/17/25 10/17/25 tablet polyethylene glycol 3350 17 17 g PO DAILY 10/17/25 10/17/25 gram/dose oral powder (Miralax) promethazine 12.5 mg tablet 12.5 mg PO Q6 PRN Nausea 10/17/25 10/17/25 tamsulosin 0.4 mg capsule 0.4 mg PO DAILY 10/17/25 10/17/25 Results & Data (ED) Vital Signs Vital Signs - 24 hr 10/17/25 10:15 10/17/25 10:15 10/17/25 10:15 Temperature 36.3 C L Temperature Source Oral Pulse Rate Pulse Rate [Apical] 101 H 103 H Respiratory Rate 16 16 Respiratory Effort / Characteristics Non-Labored Spontaneous Non-Labored Spontaneous Respiratory Depth Normal Normal Respiratory Pattern Regular Regular Blood Pressure Blood Pressure [Right Arm] 154/76 H 154/76 H Blood Pressure Mean Blood Pressure Mean [Right Arm] 102 102 Pulse Oximetry 93 93 93 Oxygen Delivery Method Room Air Room Air Room Air Sepsis Recent Fever Within 48 Hours Sepsis New/Unexplained Change in Mental Status Sepsis Action Taken by Nursing 10/17/25 10:16 10/17/25 10:45 10/17/25 11:00 Temperature 36.3 C L Temperature Source Oral Pulse Rate 101 H Pulse Rate [Apical] 101 H 101 H Respiratory Rate 16 16 16 Respiratory Effort / Characteristics Non-Labored Spontaneous Non-Labored Spontaneous Non-Labored Spontaneous Respiratory Depth Normal Normal Normal Respiratory Pattern Regular Regular Blood Pressure 154/76 H Blood Pressure [Right Arm] 143/78 H 166/71 H Blood Pressure Mean 102 Blood Pressure Mean [Right Arm] 99 102 Pulse Oximetry 93 92 92 Oxygen Delivery Method Room Air Room Air Room Air Sepsis Recent Fever Within 48 Hours No Sepsis New/Unexplained Change in Mental Status Yes Sepsis Action Taken by Nursing Physician Notified 10/17/25 11:15 10/17/25 11:30 10/17/25 11:45 Temperature Temperature Source Pulse Rate Pulse Rate [Apical] 103 H 101 H 101 H Respiratory Rate 16 16 16 Respiratory Effort / Characteristics Non-Labored Spontaneous Non-Labored Spontaneous Non-Labored Spontaneous Respiratory Depth Normal Normal Normal Respiratory Pattern Regular Regular Regular Blood Pressure Blood Pressure [Right Arm] 155/85 H 155/94 H 159/66 H Blood Pressure Mean Blood Pressure Mean [Right Arm] 108 114 97 Pulse Oximetry 92 92 92 Oxygen Delivery Method Room Air Room Air Room Air Sepsis Recent Fever Within 48 Hours Sepsis New/Unexplained Change in Mental Status Sepsis Action Taken by Nursing 10/17/25 12:00 10/17/25 12:15 10/17/25 13:26 Temperature Temperature Source Pulse Rate 112 H Pulse Rate [Apical] 101 H 105 H Respiratory Rate 16 16 Respiratory Effort / Characteristics Non-Labored Spontaneous Non-Labored Spontaneous Respiratory Depth Normal Normal Respiratory Pattern Regular Blood Pressure Blood Pressure [Right Arm] 148/73 H 148/73 H Blood Pressure Mean Blood Pressure Mean [Right Arm] 98 98 Pulse Oximetry 92 92 Oxygen Delivery Method Room Air Room Air Sepsis Recent Fever Within 48 Hours Sepsis New/Unexplained Change in Mental Status Sepsis Action Taken by Nursing 10/17/25 14:00 Temperature Temperature Source Pulse Rate Pulse Rate [Apical] 107 H Respiratory Rate 16 Respiratory Effort / Characteristics Non-Labored Spontaneous Respiratory Depth Normal Respiratory Pattern Regular Blood Pressure Blood Pressure [Right Arm] 168/78 H Blood Pressure Mean Blood Pressure Mean [Right Arm] 108 Pulse Oximetry 92 Oxygen Delivery Method Room Air Sepsis Recent Fever Within 48 Hours Sepsis New/Unexplained Change in Mental Status Sepsis Action Taken by Jail Medications Current Medication List: was personally reviewed by me Laboratory Data Attestation: I reviewed the patient's lab results. 10/17/25 10:26 10/17/25 10:26 Lab Results 10/17/25 10/17/25 10/17/25 Range/Units 10:18 10:26 10:57 WBC 21.63 H (4.8-10.8) K/ul RBC 4.50 L (4.70-6.10) M/uL Hgb 11.7 L (14.0-18.0) g/dL Hct 36.0 L (42.0-52.0) % MCV 80.0 (80.0-100.0) fL MCH 26.0 (25.0-34.0) pg MCHC 32.5 (32.0-36.0) g/dL RDW Std Deviation 44.7 (36.4-46.3) fL RDW Coeff of Sara 15.5 H (11.5-14.5) % Plt Count 456 H (130-400) K/uL MPV 8.0 L (9.4-12.4) fL Immature Gran % (Auto) 0.6 % Neut % (Auto) 91.9 % Lymph % (Auto) 2.3 % Martin % (Auto) 3.8 % Eos % (Auto) 1.1 % Baso % (Auto) 0.3 % Neut # (Auto) 19.90 H (1.40-6.50) K/uL Lymph # (Auto) 0.49 L (1.20-3.40) K/uL Martin # (Auto) 0.82 H (0.11-0.59) K/uL Eos # (Auto) 0.23 (0.00-0.50) K/uL Baso # (Auto) 0.07 (0.00-0.20) K/uL Immature Gran # (Auto) 0.12 (0.01-0.20) K/uL PT 11.5 (9.0-12.0) Seconds INR 1.1 (0.9-1.1) APTT 26 (21-31) Seconds PTT Ratio 1.0 VBG pH 7.39 (7.36-7.41) VBG pCO2 47 (38-50) mmHg VBG pO2 21 mmHg VBG HCO3 29 mmol/L VBG O2 Saturation < 60.0 % VBG Base Excess 3.0 mEq/L Sodium 138 (136-145) mmol/L Potassium 3.1 L (3.5-5.1) mmol/L Chloride 102 (98-107) mmol/L Carbon Dioxide 27 (21-32) mmol/L Anion Gap 9 (3-11) BUN 18 (6-23) mg/dl Creatinine 1.71 H (0.6-1.4) mg/dl Est Cr Clr Drug Dosing 27.9 ml/min eGFR 39.72 BUN/Creatinine Ratio 10.5 (10-20) Glucose 104 H (70-99(Fasting)) mg/dl POC Glucose 101 H (70-99) mg/dl Lactate 1.5 (0.4-2.0) mmol/L Calcium 9.4 (8.6-10.3) mg/dl Magnesium 1.8 (1.7-2.4) mg/dl Total Bilirubin 0.8 (0.2-1.0) mg/dl AST 12 L (13-39) U/L ALT 6 L (7-52) U/L Alkaline Phosphatase 90 (34-104) U/L Ammonia 21.0 (18-72) umol/L Troponin I High Sens 12.9 (0-20) pg/ml Total Protein 7.2 (6.0-8.3) gm/dl Albumin 3.8 (3.4-5.0) gm/dl Globulin 3.4 (2.5-4.0) gm/dl Albumin/Globulin Ratio 1.1 (0.9-2) Urine Color Urine Appearance (Clear) Urine pH (4.5-7.5) Ur Specific [place] (1.000-1.030) Urine Protein (Negative) Urine Glucose (UA) (Negative) Urine Ketones (Negative) Urine Blood (Negative) Urine Nitrite (Negative) Urine Bilirubin (Negative) Urine Urobilinogen (Negative) Ur Leukocyte Esterase (Negative) Urine WBC (Auto) (0-5) /hpf Urine RBC (Auto) (0-2) /hpf U Hyaline Cast (Auto) (0-2) /lpf U Epithel Cells (Auto) (0-2) /hpf Urine Bacteria (Auto) (None Seen) Urine Yeast (None Prsent) Urine Comment SARS-CoV-2 (PCR) (Negative) Influenza Type A (PCR) (Neg) Influenza Type B (PCR) (Neg) RSV (RT-PCR) (Neg) 10/17/25 10/17/25 Range/Units 12:40 12:55 WBC (4.8-10.8) K/ul RBC (4.70-6.10) M/uL Hgb (14.0-18.0) g/dL Hct (42.0-52.0) % MCV (80.0-100.0) fL MCH (25.0-34.0) pg MCHC (32.0-36.0) g/dL RDW Std Deviation (36.4-46.3) fL RDW Coeff of Sara (11.5-14.5) % Plt Count (130-400) K/uL MPV (9.4-12.4) fL Immature Gran % (Auto) % Neut % (Auto) % Lymph % (Auto) % Martin % (Auto) % Eos % (Auto) % Baso % (Auto) % Neut # (Auto) (1.40-6.50) K/uL Lymph # (Auto) (1.20-3.40) K/uL Martin # (Auto) (0.11-0.59) K/uL Eos # (Auto) (0.00-0.50) K/uL Baso # (Auto) (0.00-0.20) K/uL Immature Gran # (Auto) (0.01-0.20) K/uL PT (9.0-12.0) Seconds INR (0.9-1.1) APTT (21-31) Seconds PTT Ratio VBG pH (7.36-7.41) VBG pCO2 (38-50) mmHg VBG pO2 mmHg VBG HCO3 mmol/L VBG O2 Saturation % VBG Base Excess mEq/L Sodium (136-145) mmol/L Potassium (3.5-5.1) mmol/L Chloride (98-107) mmol/L Carbon Dioxide (21-32) mmol/L Anion Gap (3-11) BUN (6-23) mg/dl Creatinine (0.6-1.4) mg/dl Est Cr Clr Drug Dosing ml/min eGFR BUN/Creatinine Ratio (10-20) Glucose (70-99(Fasting)) mg/dl POC Glucose (70-99) mg/dl Lactate (0.4-2.0) mmol/L Calcium (8.6-10.3) mg/dl Magnesium (1.7-2.4) mg/dl Total Bilirubin (0.2-1.0) mg/dl AST (13-39) U/L ALT (7-52) U/L Alkaline Phosphatase (34-104) U/L Ammonia (18-72) umol/L Troponin I High Sens (0-20) pg/ml Total Protein (6.0-8.3) gm/dl Albumin (3.4-5.0) gm/dl Globulin (2.5-4.0) gm/dl Albumin/Globulin Ratio (0.9-2) Urine Color Yellow Urine Appearance Cloudy A (Clear) Urine pH 6.5 (4.5-7.5) Ur Specific [place] 1.033 H (1.000-1.030) Urine Protein Negative (Negative) Urine Glucose (UA) Trace H (Negative) Urine Ketones Negative (Negative) Urine Blood Negative (Negative) Urine Nitrite Negative (Negative) Urine Bilirubin Negative (Negative) Urine Urobilinogen Negative (Negative) Ur Leukocyte Esterase 3+ H (Negative) Urine WBC (Auto) >50 H (0-5) /hpf Urine RBC (Auto) 3-5 H (0-2) /hpf U Hyaline Cast (Auto) 0-2 (0-2) /lpf U Epithel Cells (Auto) 3-5 H (0-2) /hpf Urine Bacteria (Auto) 4+ H (None Seen) Urine Yeast Present A (None Prsent) Urine Comment SARS-CoV-2 (PCR) NEGATIVE (Negative) Influenza Type A (PCR) Negative (Neg) Influenza Type B (PCR) Negative (Neg) RSV (RT-PCR) Negative (Neg) Administered Medications Discontinued Medications Haloperidol Lactate (Haloperidol Lactate 5 Mg/Ml 1 Ml Vial) 2 mg IV NOW STA Stop: 10/17/25 11:28 Last Admin: 10/17/25 11:33 Dose: 2 mg Documented By: YRAON Haloperidol Lactate (Haloperidol Lactate 5 Mg/Ml 1 Ml Vial) 2 mg IV NOW STA Stop: 10/17/25 14:33 Last Admin: 10/17/25 14:44 Dose: 2 mg Documented By: MANJIT Sodium Chloride (Nss) 500 mls @ 999 mls/hr IV .Q31M ONE Stop: 10/17/25 10:54 Last Infusion: 10/17/25 11:44 Dose: Infused Documented By: Admin: 10/17/25 10:57 Dose: 999 mls/hr Documented By: YARON Piperacillin Sod/Tazobactam Sod (Zosyn) 4.5 gm in 100 mls @ 200 mls/hr IV NOW ONE Stop: 10/17/25 10:58 Last Infusion: 10/17/25 11:44 Dose: Infused Documented By: Admin: 10/17/25 10:57 Dose: 200 mls/hr Documented By: YARON Sodium Chloride (Nss) 1,000 mls @ 999 mls/hr IV .Q1H1M ONE Stop: 10/17/25 11:59 Last Infusion: 10/17/25 12:43 Dose: Infused Documented By: Admin: 10/17/25 11:33 Dose: 999 mls/hr Documented By: YARON Potassium Chloride (K Tex / Wtr) 10 meq in 100 mls @ 100 mls/hr IV ONE ONE Stop: 10/17/25 12:03 Last Infusion: 10/17/25 12:43 Dose: Infused Documented By: Admin: 10/17/25 11:33 Dose: 100 mls/hr Documented By: YARON Ioversol (Optiray 320 125ml) 112 ml IV ONCE ONE Stop: 10/17/25 10:35 Last Admin: 10/17/25 10:35 Dose: 112 ml Documented By: JAMIN Lidocaine HCl (Lidocaine 2% Jelly 5 Ml Tube) 4 ml EXT NOW ONE Stop: 10/17/25 11:00 Last Admin: 10/17/25 11:37 Dose: Not Given Documented By: YARON Lorazepam (Lorazepam 1 Mg/1 Ml Syr Ed Inj Use) 1 mg IV ONE STA Stop: 10/17/25 13:47 Last Admin: 10/17/25 14:05 Dose: 1 mg Documented By: YARON Imaging Data Radiologist's Impression: Chest X-Ray 10/17/25 10:24 Technique: A frontal view of the chest was obtained Comparison is made to the prior examination dated 04/17/2025 Findings: There are new multifocal alveolar opacities in the right lung, likely due to pneumonia. The heart size is within normal limits. No pleural effusion or pneumothorax is seen. There is no definite pulmonary nodule. No fracture is noted. No foreign body is seen Impression: Right lung pneumonia ACT 112: Positive. There are findings on this exam that require communication between the performing entity and the patient following Patient Test Result Information Act ([place] ACT 112) guidelines. Electronically signed by Loco Cabrera 10-17-2025 12:[address] 10/17/25 10:24 Technique: Axial computed tomography images were obtained of the brain without intravenous contrast. Comparison is made to the prior examination dated 09/13/2025 Findings: There is unchanged cerebral atrophy, within expected limits for the patient's age. Areas of decreased attenuation are seen within the periventricular white matter, likely representing chronic small vessel ischemic disease. There is no definite sign of acute or old infarction. No intracranial hemorrhage is evident. No definite mass lesion is seen on this noncontrast examination. There is no midline shift or other form of herniation. No hydrocephalus is seen. No fracture is identified. The orbits and the visualized paranasal sinuses appear unremarkable. The mastoid air cells appear clear. Impression: 1. 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 Otherwise unremarkable noncontrast CT of the brain Electronically signed by Loco Cabrera 10-17-2025 11:03 AM Head CTA 10/17/25 10:24 Technique: Axial computed tomography images were obtained of the brain after the administration of intravenous contrast according to the CT angiogram protocol Findings: There is calcified plaque within the cavernous and supraclinoid segments of the internal carotid arteries bilaterally, without significant stenosis No definite stenosis or aneurysm is seen of the anterior, middle, or posterior cerebral artery circulations. The basilar artery is patent Impression: No definite stenosis or aneurysm of the intracranial arteries Electronically signed by Loco Cabrera 10-17-2025 11:06 AM Neck CTA 10/17/25 10:24 Technique: Axial computed tomography images were obtained of the neck after the administration of intravenous contrast according to the CT angiogram protocol Findings: This examination is limited by motion artifact No stenosis is seen of the common carotid arteries bilaterally. There is a severe stenosis of the right carotid bulb. There is a mild stenosis of the left carotid bulb and proximal left internal carotid artery. The remainder of the internal carotid arteries appear patent bilaterally. No stenosis of the external carotid arteries is seen There is a mild stenosis of the distal left vertebral artery. No definite stenosis of the right vertebral artery is seen. The visualized thoracic aorta appears unremarkable. There is an approximately 40% stenosis of the proximal left subclavian artery There is an 8 mm irregular nodular opacity in the right lung apex there is a large heterogeneous partially calcified enhancing nodule in the left thyroid lobe Impression: 1. Limited examination due to motion artifact 2. Suspected severe stenosis of the right carotid bulb 3. Mild stenosis of the left carotid bulb and proximal left ICA 4. Mild stenosis of the distal left vertebral artery 5. Large thyroid nodule, indeterminate in nature. A thyroid ultrasound is recommended for further evaluation 6. Small irregular opacity in the right lung apex that could be due to pleural-parenchymal scarring but is indeterminate in nature. A follow-up chest CT could be obtained ACT 112: Positive. There are findings on this exam that require communication between the performing entity and the patient following Patient Test Result Information Act ([place] ACT 112) guidelines. Electronically signed by Loco Cabrera 10-17-2025 11:11 AM Abdomen/Pelvis CT 10/17/25 11:28 Clinical History: Abdominal pain Technique: Axial computed tomography images were obtained of the abdomen and pelvis without intravenous contrast. Comparison is made to the prior CT dated 09/13/2025 Findings: The liver is overall of normal size, attenuation, and contour with no sign of cirrhosis or has been removed unremarkable. There is an unchanged 1.1 cm cyst in the left hepatic lobe. There is unchanged mild bile duct dilatation is noted that is likely due to the postcholecystectomy state. The spleen is of normal size. No focal splenic lesion is evident. The pancreas appears normal with no sign of acute or chronic pancreatitis and no mass lesion noted. The pancreatic duct is of normal caliber. There is an unchanged 1.2 cm right adrenal nodule, likely a benign adenoma. The left adrenal gland appears normal There is excreted contrast within the renal collecting systems bilaterally. There is no hydronephrosis or perinephric stranding. No definite renal mass lesion is identified. There is an unchanged 1.2 cm cyst in the inferior right kidney. The aorta is of normal caliber. There is an unchanged 2 cm masslike soft tissue attenuation area with irregular margins and small foci of calcification in the right paracentral mesentery in the mid abdomen. There is unchanged multifocal haziness of the mesenteric fat. There is a small hiatal hernia. There is no sign of small bowel obstruction. The colon appears unremarkable. The appendix appears to have been removed. No free intraperitoneal fluid or air is identified. There are small left paracentral and right paracentral ventral hernias containing fat. There is some nodularity of the right lower quadrant anterior abdominal wall that could be due to postsurgical scarring. This measures up to 3.2 x 1.5 cm There is excreted contrast filling the urinary bladder. No definite bladder mass lesion is evident. The iliac arteries are of normal caliber. No pelvic adenopathy is noted. There are new multifocal nodular alveolar and groundglass opacities in the right lower lobe, likely due to pneumonia. There is coronary atherosclerosis No fracture is identified. No focal osseous lesion is seen Impression: 1. New right lower lobe pneumonia 2. 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 Unchanged partially calcified irregular masslike area within the mesentery that could be due to scarring or treated malignancy such as carcinoid tumor 4. Unchanged hepatic and right renal cysts 5. Small hiatal hernia 6. Unchanged small right adrenal nodule, likely a benign adenoma 7. Small ventral hernias containing only fat 8. Coronary atherosclerosis 9. Unchanged 3.2 x 1.5 cm nodular soft tissue attenuation area involving the right lower quadrant anterior abdominal wall musculature. This could be due to postsurgical scarring. Desmoid tumor or metastatic disease cannot be excluded ACT 112: Positive. There are findings on this exam that require communication between the performing entity and the patient following Patient Test Result Information Act ([place] ACT 112) guidelines. Electronically signed by Loco Cabrera 10-17-2025 13:51 PM Discharge Plan Visit Data Chief Complaint: Altered Mental Status Stated Complaint: AMS ED Provider: Brandan Sales Discharge Problem: Altered mental status, Acute UTI, Leukocytosis, Pneumonia, Anemia, Acute kidney injury, Hypokalemia Patient Disposition: Admitted As Inpatient Condition: Serious Forms Stand Alone Forms: [facility] [employer] Prescriptions Prescriptions: No Action aspirin 81 mg Tablet,Delayed Release (Dr/Ec) 81 mg PO DAILY tramadol 50 mg tablet 50 mg PO Q6H PRN (Reason: PAIN/SEVERE PAIN) pantoprazole 40 mg tablet,delayed release (DR/EC) 40 mg PO QAM gabapentin 300 mg Capsule 300 mg PO TID Hold Instructions: Resume on 04/22/25. hydrochlorothiazide 25 mg tablet 25 mg PO QAM Hold Instructions: Resume on 09/22/25. rosuvastatin 5 mg tablet 5 mg PO QAM senna 8.6 mg Capsule 8.6 mg PO BID tamsulosin 0.4 mg capsule 0.4 mg PO DAILY diltiazem HCl 360 mg capsule,extended release 24hr 360 mg PO QAM promethazine 12.5 mg tablet 12.5 mg PO Q6 PRN (Reason: Nausea) hyoscyamine sulfate 0.125 mg tablet 0.125 mg PO TID PRN (Reason: cramping) polyethylene glycol 3350 [Miralax] 17 gram/dose Powder 17 g PO DAILY ondansetron 4 mg tablet,disintegrating 4 mg PO Q8 PRN (Reason: Nausea) lorazepam 1 mg tablet 1 mg PO TID PRN (Reason: Sleep) losartan 100 mg Tablet 100 mg PO DAILY Referrals Referrals: Mayda De Luna MD [Primary Care Provider] - Discharge Problem: Altered mental status Qualifiers: Altered mental status type: unspecified Qualified Code(s): R41.82 - Altered mental status, unspecified Leukocytosis Qualifiers: Leukocytosis type: unspecified Qualified Code(s): D72.829 - Elevated white blood cell count, unspecified Pneumonia Qualifiers: Pneumonia type: due to unspecified organism Laterality: right Lung location: u nspecified part of lung Qualified Code(s): J18.9 - Pneumonia, unspecified organism Anemia Qualifiers: Anemia type: unspecified type Qualified Code(s): D64.9 - Anemia, unspecified
[2025-10-17 10:43] LABS: Hematocrit (blood only) 36.0 % (42.0-52.0); Hemoglobin 11.7 g/dL (14.0-18.0); Mean Corpuscular Hemoglobin 26.0 pg (25.0-34.0); Mean Corpuscular Volume 80.0 fL (80.0-100.0); Platelet Count 456 K/uL (130-400); RDW Standard Deviation 44.7 fL (36.4-46.3); Red Blood Count 4.50 M/uL (4.70-6.10); White Blood Count 21.63 K/ul (4.8-10.8)
[2025-10-17] MEDS: PIPERACILLIN/TAZOBACTAM 4.5 GM/100 ML BAG IV ONE (10:57)
[2025-10-17] MEDS: SODIUM CHLORIDE 0.9% 500 ML IV ONE (10:57)
[2025-10-17 11:00] LABS: Alanine Aminotransferase 6.0 U/L (7-52); Albumin Globulin Ratio 1.1 (0.9-2); Albumin Level 3.8 gm/dl (3.4-5.0); Alkaline Phosphatase 90.0 U/L (34-104); Anion Gap 9.0 (3-11); Bilirubin,Total 0.8 mg/dl (0.2-1.0); Blood Urea Nitrogen 18.0 mg/dl (6-23); Calcium 9.4 mg/dl (8.6-10.3); Carbon Dioxide 27.0 mmol/L (21-32); Chloride 102.0 mmol/L (98-107); Creatinine Clr Calc Pharmacy 27.9 ml/min; Globulin 3.4 gm/dl (2.5-4.0); Glucose 104.0 mg/dl (70-99(Fasting)); Magnesium 1.8 mg/dl (1.7-2.4); Potassium 3.1 mmol/L (3.5-5.1); Sodium 138.0 mmol/L (136-145); Total Protein 7.2 gm/dl (6.0-8.3)
--- NOTE | 2025-10-17 11:04 | CT Scan Report ---
Technique: Axial computed tomography images were obtained of the brain without intravenous contrast. Comparison is made to the prior examination dated 09/13/2025 Findings: There is unchanged cerebral atrophy, within expected limits for the patient's age. Areas of decreased attenuation are seen within the periventricular white matter, likely representing chronic small vessel ischemic disease. There is no definite sign of acute or old infarction. No intracranial hemorrhage is evident. No definite mass lesion is seen on this noncontrast examination. There is no midline shift or other form of herniation. No hydrocephalus is seen. No fracture is identified. The orbits and the visualized paranasal sinuses appear unremarkable. The mastoid air cells appear clear. Impression: 1. 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 Otherwise unremarkable noncontrast CT of the brain Electronically signed by Loco Cabrera 10-17-2025 11:03 AM
[2025-10-17 11:05] LABS: Immature Granulocytes # (auto) 0.12 K/uL (0.01-0.20); Immature Granulocytes % (auto) 0.6 %
--- NOTE | 2025-10-17 11:07 | CT Scan Report ---
Technique: Axial computed tomography images were obtained of the brain after the administration of intravenous contrast according to the CT angiogram protocol Findings: There is calcified plaque within the cavernous and supraclinoid segments of the internal carotid arteries bilaterally, without significant stenosis No definite stenosis or aneurysm is seen of the anterior, middle, or posterior cerebral artery circulations. The basilar artery is patent Impression: No definite stenosis or aneurysm of the intracranial arteries Electronically signed by Loco Cabrera 10-17-2025 11:06 AM
[2025-10-17 11:09] LABS: Base Excess VBG 3.0 mEq/L; HCO3 VBG 29 mmol/L; Oxygen Saturation VBG < 60.0 %; PCO2 VBG 47 mmHg (38-50); PO2 VBG 21 mmHg; pH VBG 7.39 (7.36-7.41)
--- NOTE | 2025-10-17 11:11 | CT Scan Report ---
Technique: Axial computed tomography images were obtained of the neck after the administration of intravenous contrast according to the CT angiogram protocol Findings: This examination is limited by motion artifact No stenosis is seen of the common carotid arteries bilaterally. There is a severe stenosis of the right carotid bulb. There is a mild stenosis of the left carotid bulb and proximal left internal carotid artery. The remainder of the internal carotid arteries appear patent bilaterally. No stenosis of the external carotid arteries is seen There is a mild stenosis of the distal left vertebral artery. No definite stenosis of the right vertebral artery is seen. The visualized thoracic aorta appears unremarkable. There is an approximately 40% stenosis of the proximal left subclavian artery There is an 8 mm irregular nodular opacity in the right lung apex there is a large heterogeneous partially calcified enhancing nodule in the left thyroid lobe Impression: 1. Limited examination due to motion artifact 2. Suspected severe stenosis of the right carotid bulb 3. Mild stenosis of the left carotid bulb and proximal left ICA 4. Mild stenosis of the distal left vertebral artery 5. Large thyroid nodule, indeterminate in nature. A thyroid ultrasound is recommended for further evaluation 6. Small irregular opacity in the right lung apex that could be due to pleural-parenchymal scarring but is indeterminate in nature. A follow-up chest CT could be obtained ACT 112: Positive. There are findings on this exam that require communication between the performing entity and the patient following Patient Test Result Information Act ([place] ACT 112) guidelines. Electronically signed by Looc Cabrera 10-17-2025 11:11 AM
[2025-10-17 11:17] LABS: INR 1.1 (0.9-1.1); Partial Thromboplastin Time 26 Seconds (21-31); Prothrombin Time 11.5 Seconds (9.0-12.0)
[2025-10-17] MEDS: POTASSIUM CHLORIDE / WTR 10 MEQ/100 ML PLCT IV ONE (11:33)
[2025-10-17] MEDS: SODIUM CHLORIDE 0.9% 1,000 ML IV ONE (11:33)
[2025-10-17] MEDS: HALOPERIDOL LACTATE 5 MG/ML 1 ML VIAL IV STA ×2 (11:33→14:44)
[2025-10-17] MEDS: LIDOCAINE 2% JELLY 5 ML TUBE EXT ONE (11:37)
--- NOTE | 2025-10-17 12:16 | XRay Report ---
Technique: A frontal view of the chest was obtained Comparison is made to the prior examination dated 04/17/2025 Findings: There are new multifocal alveolar opacities in the right lung, likely due to pneumonia. The heart size is within normal limits. No pleural effusion or pneumothorax is seen. There is no definite pulmonary nodule. No fracture is noted. No foreign body is seen Impression: Right lung pneumonia ACT 112: Positive. There are findings on this exam that require communication between the performing entity and the patient following Patient Test Result Information Act ([place] ACT 112) guidelines. Electronically signed by Loco Cabrera 10-17-2025 12:15 PM
[2025-10-17 13:17] LABS: Appearance Urine Cloudy (Clear); Bacteria Urine Automated 4+ (None Seen); Cast Urine Automated 0-2 /lpf (0-2); Glucose Urine UA Trace (Negative); WBC Urine Automated >50 /hpf (0-5)
[2025-10-17 13:23] LABS: Influenza A virus by PCR Negative (Neg); Influenza B virus by PCR Negative (Neg); SARS CoV2 RNA(COVID-19) Ceph NEGATIVE (Negative)
--- NOTE | 2025-10-17 13:51 | CT Scan Report ---
Clinical History: Abdominal pain Technique: Axial computed tomography images were obtained of the abdomen and pelvis without intravenous contrast. Comparison is made to the prior CT dated 09/13/2025 Findings: The liver is overall of normal size, attenuation, and contour with no sign of cirrhosis or has been removed unremarkable. There is an unchanged 1.1 cm cyst in the left hepatic lobe. There is unchanged mild bile duct dilatation is noted that is likely due to the postcholecystectomy state. The spleen is of normal size. No focal splenic lesion is evident. The pancreas appears normal with no sign of acute or chronic pancreatitis and no mass lesion noted. The pancreatic duct is of normal caliber. There is an unchanged 1.2 cm right adrenal nodule, likely a benign adenoma. The left adrenal gland appears normal There is excreted contrast within the renal collecting systems bilaterally. There is no hydronephrosis or perinephric stranding. No definite renal mass lesion is identified. There is an unchanged 1.2 cm cyst in the inferior right kidney. The aorta is of normal caliber. There is an unchanged 2 cm masslike soft tissue attenuation area with irregular margins and small foci of calcification in the right paracentral mesentery in the mid abdomen. There is unchanged multifocal haziness of the mesenteric fat. There is a small hiatal hernia. There is no sign of small bowel obstruction. The colon appears unremarkable. The appendix appears to have been removed. No free intraperitoneal fluid or air is identified. There are small left paracentral and right paracentral ventral hernias containing fat. There is some nodularity of the right lower quadrant anterior abdominal wall that could be due to postsurgical scarring. This measures up to 3.2 x 1.5 cm There is excreted contrast filling the urinary bladder. No definite bladder mass lesion is evident. The iliac arteries are of normal caliber. No pelvic adenopathy is noted. There are new multifocal nodular alveolar and groundglass opacities in the right lower lobe, likely due to pneumonia. There is coronary atherosclerosis No fracture is identified. No focal osseous lesion is seen Impression: 1. New right lower lobe pneumonia 2. 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 Unchanged partially calcified irregular masslike area within the mesentery that could be due to scarring or treated malignancy such as carcinoid tumor 4. Unchanged hepatic and right renal cysts 5. Small hiatal hernia 6. Unchanged small right adrenal nodule, likely a benign adenoma 7. Small ventral hernias containing only fat 8. Coronary atherosclerosis 9. Unchanged 3.2 x 1.5 cm nodular soft tissue attenuation area involving the right lower quadrant anterior abdominal wall musculature. This could be due to postsurgical scarring. Desmoid tumor or metastatic disease cannot be excluded ACT 112: Positive. There are findings on this exam that require communication between the performing entity and the patient following Patient Test Result Information Act ([place] ACT 112) guidelines. Electronically signed by Loco Cabrera 10-17-2025 13:51 PM
[2025-10-17] MEDS: LORazepam 1 MG/1 ML SYR ED Inj Use IV STA (14:05)
--- NOTE | 2025-10-17 14:57 | History & Physical Report ---
Date of Service October 17, 2025 Assessment & Plan (1) Sepsis: (2) Altered mental status: (3) Acute UTI: (4) Leukocytosis: Plan Patient is a 80 y/o M PMHx COPD, HTN, CKD stage 3a, T2DM and depression who presented to the ED this morning via EMS for evaluation of acute mental. Patient is admitted for med/surg for treatment of altered mental status in the setting of sepsis 2/2 urinary tract infection. #sepsis/acute UTI - admission labs CBC with leukocytosis - WBC 21. Na 138, K 3.1. Cr. 1.7 (baseline 1.0). Lactate 1.5 - UA showing cloudy urine, leuk esterase 3+, >50 WBC, 3-5 RBC, 4+ bacteria. - pt has had two previous UTIs in past 6 months - hx of urine cultures positive for Enterococcus and Klebesiella. Most recently discharged from [facility] for sepsis 2/2 UTI. - given dose of Zosyn in ED - will d/c and start abx course with ceftriaxone 2g q24h ; will change as needed once sensivities resulted - blood cx and urine cx pending - IV fluids NSS - CBC, BMP qAM #altered mental status - most likely due to sepsis/UTI as above - will continue to infection control as above - frequent orientation as needed - continue to monitor #JOSTIN on CKD stage 3 - Cr 1.7 on admission (baseline 1.0) - likely 2/2 due dehydration, as patient appearing hypovolemic on exam - K+ decrease at 3.1, however other electrolytes are stable - no evidence of obstructive uropathy - repeat BMP as above #hypokalemia - K+ 3.1 on admission, was repleted in ED with KCl 10 meq IV - admission EKG with NSR - unable to obtain ROS regarding chest pain, SOB, palpitations - repeat BMP in AM #HTN - pressures have been relatively stable since admission - most recent - continue home HCTZ, diltiazem and losartan #T2DM - currently diet controlled - last A1c 09/14/25 - 6.0 - continue to monitor DVT: lovenox Dispo: med/surg History of Present Illness Chief Complaint: altered mental status Primary Care Provider: Mayda De Luna MD Robbie is a 80 y/o M PMHx COPD, HTN, CKD stage 3a, T2DM and depression who presented to the ED this morning via EMS for evaluation of acute mental status change. Due to mental status, history unable to be obtained from patient. ED provider history obtained by patient's son - I have not been able to contact family, therefore report taken from ED provider. Per son, patient was more tired than baseline last evening and went to bed earlier than usual. Around 0930, patient was found by son to be more confusion, not making sense and slurring his words which prompted them to call EMS. On arrival to ED, stroke alert was activated given patient's symptoms however stroke workup completed and negative. CT head negative for ischemia or acute intracranial hemorrhage. CTA with mild stenosis of right carotid bulb and mild stenosis of left carotid bulb and left ICA. Tele stroke consult not concerned for stroke at this time. ED labs showing CBC with leukocytosis - WBC 21. Na 138, K 3.1. Cr. 1.7 (baseline 1.0). Lactate 1.5 UA showing cloudy urine, leuk esterase 3+, >50 WBC, 3-5 RBC, 4+ bacteria. Patient tachycardic, afebrile, saturating well on RA. Patient will be admitted for med/surg for treatment of altered mental status in the setting of sepsis 2/2 urinary tract infection. ROS was unable to obtain due to patient's mental status. Allergies Allergy/AdvReac Type Severity Reaction Status Date / Time morphine AdvReac Severe PT HAD TOO Verified 10/17/25 15:56 MUCH POST OP-WAS PUT IN ICU FOR MONITORING Home Medications Medication Instructions Recorded Confirmed Type aspirin 81 mg tablet,delayed 81 mg PO DAILY 04/17/25 10/17/25 History release gabapentin 300 mg capsule 300 mg PO TID 04/17/25 10/17/25 History hydrochlorothiazide 25 mg tablet 25 mg PO QAM 04/17/25 10/17/25 History pantoprazole 40 mg tablet,delayed 40 mg PO QAM 04/17/25 10/17/25 History release rosuvastatin 5 mg tablet 5 mg PO QAM 04/17/25 10/17/25 History sennosides 8.6 mg capsule (senna) 8.6 mg PO BID 04/17/25 10/17/25 History tramadol 50 mg tablet 50 mg PO Q6H PRN PAIN/SEVERE PAIN 04/17/25 10/17/25 History lorazepam 1 mg tablet 1 mg PO TID PRN Sleep 09/13/25 10/17/25 History losartan 100 mg tablet 100 mg PO DAILY 09/13/25 10/17/25 History diltiazem HCl 360 mg 360 mg PO QAM 10/17/25 10/17/25 History capsule,extended release 24 hr hyoscyamine sulfate 0.125 mg tablet 0.125 mg PO TID PRN cramping 10/17/25 10/17/25 History ondansetron 4 mg disintegrating 4 mg PO Q8 PRN Nausea 10/17/25 10/17/25 History tablet polyethylene glycol 3350 17 17 g PO DAILY 10/17/25 10/17/25 History gram/dose oral powder (Miralax) promethazine 12.5 mg tablet 12.5 mg PO Q6 PRN Nausea 10/17/25 10/17/25 History tamsulosin 0.4 mg capsule 0.4 mg PO DAILY 10/17/25 10/17/25 History Past Med/Surg History Problem List (Updated 10/17/25 @ 14:43 by Brandan Sales MD) Hypokalemia (Acute) Acute kidney injury (Acute) Anemia (Acute) Pneumonia (Acute) Leukocytosis (Acute) Acute UTI (Acute) Altered mental status (Acute) Infection caused by Enterobacter cloacae Hypertensive urgency Fall (Acute) Confusion (Acute) Weakness (Acute) JOSTIN (acute kidney injury) Sepsis Rhabdomyolysis (Acute) Weakness (Acute) COPD exacerbation (Acute) Chest tightness (Acute) Esophagitis (Acute) Humerus fracture (Acute) 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) Medical History (Updated 10/17/25 @ 14:43 by Brandan Sales MD) Depression with anxiety CKD (chronic kidney disease) stage 3, GFR 30-59 ml/min COPD (chronic obstructive pulmonary disease) HTN (hypertension) T2DM (type 2 diabetes mellitus) Surgical History (Updated 09/13/25 @ 15:10 by Morelia De La Torre PA-C) Hx of hernia repair Hx of tonsillectomy Hx laparoscopic cholecystectomy History of partial colectomy Family History (Updated 09/13/25 @ 15:10 by Morelia De La Torre PA-C) Mother Heart disease Social History (Updated 09/13/25 @ 15:11 by Morelia De La Torre PA-C) Smoking Status: Unknown if ever smoked Tobacco Type: E-cigarettes / Vaping packs per day: 0.3; Second Hand Exposure: No; Do You Dip or Chew Tobacco: No; Hx Alcohol Use: No Hx Substance Use: No Preferred Language: Nauruan Communication Ability: Effective Car Seat Upholsterer Required: No Beliefs That Will Affect Care: None Current Living Situation: Spouse Current Living Situation Comment: lives at home with Feels Safe at Home: Yes Assistive Devices: None Physical Exam Physical Exam: General: alert, however agitated, uncomfortable appearing in bed. No meaning conversational interaction during interviewing. Non-toxic appearing. No acute distress HEENT: NC/AT, EOMI, lips and mucous membranes are dry and chapped Cardio: tachycardic, regular rhythm, no murmur appreciated Lungs: CTA BL, no increased work of breath Abdomen: mildly distended, however soft without rebound or guarding, not overtly tender to palpation, however patient unable to communicate pain/tenderness. Skin: warm, dry, no apparent rashes or bruises MSK: no obvious deformities Neuro: awake, alert, not oriented ; no obvious focal neurologic deficits Results & Data Results & Data Vital Signs (Past 12 Hours) Vital Signs Temp Pulse Pulse Resp BP BP Pulse Ox 10/17/25 14:00 107 H 16 168/78 H 92 10/17/25 13:26 112 H 10/17/25 12:15 105 H 16 148/73 H 92 10/17/25 12:00 101 H 16 148/73 H 92 10/17/25 11:45 101 H 16 159/66 H 92 10/17/25 11:30 101 H 16 155/94 H 92 10/17/25 11:15 103 H 16 155/85 H 92 10/17/25 11:00 101 H 16 166/71 H 92 10/17/25 10:45 101 H 16 143/78 H 92 10/17/25 10:16 36.3 C L 101 H 16 154/76 H 93 10/17/25 10:15 103 H 16 154/76 H 93 10/17/25 10:15 36.3 C L 101 H 16 154/76 H 93 10/17/25 10:15 93 O2 Del Method 10/17/25 14:00 Room Air 10/17/25 13:26 10/17/25 12:15 Room Air 10/17/25 12:00 Room Air 10/17/25 11:45 Room Air 10/17/25 11:30 Room Air 10/17/25 11:15 Room Air 10/17/25 11:00 Room Air 10/17/25 10:45 Room Air 10/17/25 10:16 Room Air 10/17/25 10:15 Room Air 10/17/25 10:15 Room Air 10/17/25 10:15 Room Air Supervising Physician Co-Signing Physician Notes I personally examined the patient and verified all velez points of history and exam, discussed case, and agree with decision making with Dr Pratt no HPI or ROS obtainable. nursing notes that he has a tight urethra. also has been having several BMs vitals noted rolls around and groans/talks nonsensically. lungs clear no r/r/w good spontaneous effort abd soft mod distention having diarrhea when i enter the room. abd seems nontender no guarding no rebound. ext no c/c/e. no lateralizing signs / motor/muscle tone appears symmetric no notable focal motor deficits delirium - due to sepsis sepsis - most likely recurrent UTI given stricture and (+) UA - could be pneumonia based on Xray but vitals and exam don't fit well. r/o Cdiff given recent hospital stay w broad abx and now diarrhea. ceftriaxone for now pending cultures. follow labs and diagnostics, serial exams. since this fits the best with recurrent UTI, and since he seems to have some degree of stricture - after infection has improved, will want him to see urology ARF - appearing due to dehydration - IVF, follow DVT proph - lovenox (2) Altered mental status Altered mental status type: unspecified Qualified Code(s): R41.82 - Altered mental status, unspecified (4) Leukocytosis Leukocytosis type: unspecified Qualified Code(s): D72.829 - Elevated white blood cell count, unspecified
--- NOTE | 2025-10-17 15:44 | Billing Data ---
Date of Service October 17, 2025 Coding Level of Care Code 22373 INT INP/OBS CARE
[2025-10-17 16:37] LABS: Cdiff Toxin B Gene (2yr or >) Negative Cdiff Gene (Neg)
[2025-10-17] MEDS ORDERED: POLYETHYLENE (MIRALAX) 17 GM PACK PO PRN (16:54)
[2025-10-17] MEDS ORDERED: ONDANSETRON INJ 2 MG/ML 2 ML VIAL IV PRN (16:54)
[2025-10-17] MEDS ORDERED: SODIUM CHLORIDE 0.9% 1,000 ML IV SCH (16:54)
[2025-10-17] MEDS ORDERED: DICYCLOMINE HCL 10 MG CAP PO PRN (16:54)
[2025-10-17] MEDS: ENOXAPARIN INJ 30 MG/0.3 ML SYR SQ SCH (17:47)
[2025-10-17] MEDS: cefTRIAXone SODIUM 2,000 MG/50 ML BAG IV STA (17:49)
[2025-10-17] MEDS: LACTATED RINGER'S 1,000 ML IV SCH (18:12)
[2025-10-17] MEDS: GABAPENTIN 300 MG CAP PO SCH (21:15)
[2025-10-18] MEDS: HALOPERIDOL LACTATE 5 MG/ML 1 ML VIAL IM PRN (06:04)
[2025-10-18 08:11] LABS: Hematocrit (blood only) 32.2 % (42.0-52.0); Hemoglobin 10.3 g/dL (14.0-18.0); Immature Granulocytes # (auto) 0.07 K/uL (0.01-0.20); Immature Granulocytes % (auto) 0.4 %; Mean Corpuscular Hemoglobin 25.2 pg (25.0-34.0); Mean Corpuscular Volume 78.7 fL (80.0-100.0); Platelet Count 351 K/uL (130-400); RDW Standard Deviation 43.8 fL (36.4-46.3); Red Blood Count 4.09 M/uL (4.70-6.10); White Blood Count 17.42 K/ul (4.8-10.8)
[2025-10-18 08:36] LABS: Anion Gap 10.0 (3-11); Blood Urea Nitrogen 12.0 mg/dl (6-23); Calcium 8.7 mg/dl (8.6-10.3); Carbon Dioxide 25.0 mmol/L (21-32); Chloride 105.0 mmol/L (98-107); Creatinine Clr Calc Pharmacy 48.4 ml/min; Glucose 87.0 mg/dl (70-99(Fasting)); Potassium 3.0 mmol/L (3.5-5.1); Sodium 140.0 mmol/L (136-145)
--- NOTE | 2025-10-18 08:45 | Hospitalist Progress Note ---
Date of Service October 18, 2025 Assessment & Plan (1) Sepsis: (2) Altered mental status: (3) Acute UTI: (4) Leukocytosis: Plan Patient is a 80 y/o M PMHx COPD, HTN, CKD stage 3a, T2DM and depression who presented to the ED this morning via EMS for evaluation of acute mental. Patient is admitted for med/surg for treatment of altered mental status in the setting of sepsis 2/2 urinary tract infection. #Sepsis | acute UTI - WBC 21 in admission;10/17 Lactate 1.5 -->1.0 10/18; 10/17 UA showing cloudy urine, leuk esterase 3+, >50 WBC, 3-5 RBC, 4+ bacteria. -Hx 2 UTIs in past 6 mos; hx urine cultures + Enterococcus and Klebsiella; Most recently discharged from [facility] for urosepsis August, -Urology Consulted: Signed Off; recs maintaining eden until walking w/ daily BM x3days -10/17 Urine Cx +E.coli -Blood Cx pending -Continue ceftriaxone 2g q24h, reassess -IV fluids NSS -CBC, BMP, Procalcitonin AM #Altered mental status -Likely due to sepsis/UTI as above -Infection control as above -Orientation as needed -Continue to monitor w/ 1:1 -TSH, Ammonia, Vit B1, Vit B12, Tox Screen per ED Neuro Recs #JOSTIN on CKD stage 3 - RESOLVED; Cr 1.7 on admission (baseline 1.0) -likely d/2 dehydration, as patient appeared hypovolemic on exam -no evidence of obstructive uropathy -Trend BMP #Hypokalemia - EKG on admission NSR; unable to determine CP, SOB, palpitations d/t acute AMS -3.0 this AM, repleted w/ 60mEq -Repeat K level at 1500 3.45 -Trend BMP #HTN - pressures have been relatively stable since admission - most recent 165 - continue home HCTZ, diltiazem and losartan #T2DM - currently diet controlled, last A1c 09/14/25 - 6.0 - continue to monitor DVT: Lovenox Dispo: Med/surg Admission and Anticipated Discharge Date Admission Date: October 17, 2025 Subjective Pt is laying in bed, acutely confused. Pt often says "Please can I" followed by a question in Emile. Repeat NIHSS revealed improvement from 9 in ED to 5 (please see physical exam section). Review of Systems Review of Systems: All systems reviewed & are unremarkable except as noted in Subjective Physical Exam Physical Exam: General: Pt is a 80 y/o WD/WN M acutely confused in bed, sitter at bedside VS: reviewed, remarkable - BP 165/79, P 107 Skin: Warm and dry; no lesions or ulcerations Respiratory: CTA bilat, no adventitious sounds noted. Chest expansion is full and symmetrical Cardio: Tachycardia, no murmurs Abdomen: Round, normoactive BS x4, nontender to palpation MSK: FROM of extremities, no deformities - pt was able to exert force against passive movement of legs Extremities: no edema Neuro: A&Ox4, cooperative Delta Coma Scale: 4, 3, 6 = 13 NIH: 1A. Alert, Keenly Responsive 1B. Does Not know Month or Age +2 1C. Blinks eyes and Squeezes hands on de di 2. Normal Horizontal EOM 3. No visual loss 4. Facial Palsy - sm droop(?) noticed at L mouth, able to smile and raise eyebrows equally +1 5A. No drift L arm 5B. No drift R arm 6A. Pt refused to lift L leg, active eff ort against passive movement 6B. Pt refused to lift R leg, active eff ort against passive movement 7. No ataxia 8. Sensation WNL, no loss of feeling 9. Mild-Moderate aphasia, without signif icant limitation +1 Pt often transitions between Armenian and Emile likely d/t acute confusion 10. Mild-moderate dysarthria +1 Again, difficult to assess considering pts fluid transitioning between languages, often vincentian words are clear and concise but mumbled 11. No abnormalities w/ extinction/inatt ention Total Score: 5 Results & Data Results & Data Vital Signs (Past 12 Hours) Vital Signs Temp Pulse Resp BP BP Pulse Ox O2 Del Method 10/18/25 07:24 97.5 F L 107 H 20 165/79 H 100 Room Air 10/17/25 22:11 98.6 F 88 18 135/73 95 Room Air Laboratory Results Reviewed: CBC, BMP, Lactic Acid PG Care Time/CCT Total # of Minutes Spent Total Time Spent with Patient: Total time spent is greater than 50% in coordination of care (as documented) at patient's floor/unit and/or counseling patient: A total of 70 minutes was spent on pt care between direct patient contact, review of pt chart, review + interpretation of labs/imaging, documentation, and coordination of care Coding Level of Care Code 12305 SUB INP/OBS CARE 350MIN Diagnoses Sepsis A41.9 Altered mental status R41.82 Altered mental status type: unspecified Acute UTI N39.0 Leukocytosis D72.829 Leukocytosis type: unspecified (2) Altered mental status Altered mental status type: unspecified Qualified Code(s): R41.82 - Altered mental status, unspecified (4) Leukocytosis Leukocytosis type: unspecified Qualified Code(s): D72.829 - Elevated white blood cell count, unspecified
[2025-10-18] MEDS: POTASSIUM CHLORIDE / WTR 10 MEQ/100 ML PLCT IV SCH ×2 (09:32→15:24)
--- NOTE | 2025-10-18 10:10 | Urology Consultation ---
Date of Consultation October 17, 2025 Assessment & Plan (1) Urinary retention: Afebrile hd stable 80M with acute ams leukocytosis unclear origin urinary retention difficult eden placement. - maintain eden until more oriented walking with daily BM x 3 days - start flomax enlarged prostate will also contribute to retention - do not suspect UTI on basis of urine very clear not infected looking would hesitate to interpret prior specimen as was clearly contaminated collection History of Present Illness Reason for Consultation: urinary retention, incontinence, phimosis difficult eden placement Attending Physician: Burt Briseno MD History of Present Illness 80M brought to ED admitted for AMS possible UTI, initially voiding then not able to do so seemingly uncomfortable and conotinuous overflow inconitince with elevated bladder scan, staff unable to place eden noted to have tight phimosis, urology consultation requested for same in setting JOSTIN suspected UTI. Gen: Agitated disoriented uncooperative Abd: tender to sp palpation, distended : uncircumcised male tight phimosis difficult eden placement, with assistannce eventually able to dilate foreskin with catheter and place 18 fr coude, clear urine return seemingly more comfortable though now grabbing at catheter Allergies Allergy/AdvReac Type Severity Reaction Status Date / Time morphine AdvReac Severe PT HAD TOO Verified 10/17/25 15:56 MUCH POST OP-WAS PUT IN ICU FOR MONITORING Home Medications Medication Instructions Recorded Confirmed Type aspirin 81 mg tablet,delayed 81 mg PO DAILY 04/17/25 10/17/25 History release gabapentin 300 mg capsule 300 mg PO TID 04/17/25 10/17/25 History hydrochlorothiazide 25 mg tablet 25 mg PO QAM 04/17/25 10/17/25 History pantoprazole 40 mg tablet,delayed 40 mg PO QAM 04/17/25 10/17/25 History release rosuvastatin 5 mg tablet 5 mg PO QAM 04/17/25 10/17/25 History sennosides 8.6 mg capsule (senna) 8.6 mg PO BID 04/17/25 10/17/25 History tramadol 50 mg tablet 50 mg PO Q6H PRN PAIN/SEVERE PAIN 04/17/25 10/17/25 History lorazepam 1 mg tablet 1 mg PO TID PRN Sleep 09/13/25 10/17/25 History losartan 100 mg tablet 100 mg PO DAILY 09/13/25 10/17/25 History diltiazem HCl 360 mg 360 mg PO QAM 10/17/25 10/17/25 History capsule,extended release 24 hr hyoscyamine sulfate 0.125 mg tablet 0.125 mg PO TID PRN cramping 10/17/25 10/17/25 History ondansetron 4 mg disintegrating 4 mg PO Q8 PRN Nausea 10/17/25 10/17/25 History tablet polyethylene glycol 3350 17 17 g PO DAILY 10/17/25 10/17/25 History gram/dose oral powder (Miralax) promethazine 12.5 mg tablet 12.5 mg PO Q6 PRN Nausea 10/17/25 10/17/25 History tamsulosin 0.4 mg capsule 0.4 mg PO DAILY 10/17/25 10/17/25 History Patient History Medical History Depression with anxiety CKD (chronic kidney disease) stage 3, GFR 30-59 ml/min COPD (chronic obstructive pulmonary disease) HTN (hypertension) T2DM (type 2 diabetes mellitus) Surgical History (Updated 09/13/25 @ 15:10 by Morelia De La Torre PA-C) Hx of hernia repair Hx of tonsillectomy Hx laparoscopic cholecystectomy History of partial colectomy Family History (Updated 09/13/25 @ 15:10 by Morelia De La Torre PA-C) Mother Heart disease Social History Smoking Status: Unknown if ever smoked Tobacco Type: E-cigarettes / Vaping packs per day: 0.3; Hx Substance Use: No Preferred Language: Citizen Of [place] Communication Ability: AMS Salesperson Furs Required: No Beliefs That Will Affect Care: None Current Living Situation: Family Current Living Situation Comment: home with son and his family Feels Safe at Home: Yes Assistive Devices: None Results & Data Vital Signs (Past 12 Hours) Vital Signs Temp Pulse Resp BP BP Pulse Ox O2 Del Method 10/18/25 07:24 36.4 C L 107 H 20 165/79 H 100 Room Air 10/17/25 22:11 37.0 C 88 18 135/73 95 Room Air PG Care Time/CCT Total # of Minutes Spent Total Time Spent with Patient: Total time spent is greater than 50% in coordination of care (as documented) at patient's floor/unit and/or counseling patient: Coding Level of Care Code 30293 IN/OBS CONSULT LVL 2,35M Diagnoses Urinary retention R33.9
[2025-10-18] MEDS: ASPIRIN 81 MG ECTAB PO SCH (11:19)
[2025-10-18] MEDS: CHOLECALCIFEROL 125 MCG (5,000 UNITS) TAB PO SCH (11:19)
[2025-10-18] MEDS: TAMSULOSIN HCL 0.4 MG CAP PO SCH (11:20)
[2025-10-18] MEDS: ROSUVASTATIN CALCIUM 5 MG TAB PO SCH (11:20)
[2025-10-18] MEDS: FERROUS SULFATE 325 MG TAB PO SCH (11:20)
[2025-10-18] MEDS ORDERED: POTASSIUM CHLORIDE CRTAB 20 MEQ TABCR PO SCH (12:00)
--- NOTE | 2025-10-18 12:31 | Urology Progress Note ---
<Statement entered by Carlos A Hooper MD - 10/18/25 13:30> Chart reviewed plan reviewed and agree as written. Date of Service October 18, 2025 Assessment & Plan (1) Urinary retention: Plan Follow-up for urinary retention and difficult catheterization. - Hair catheter placed yesterday by Dr. Hooper and currently draining clear yellow urine. - Pt afebrile and hemodynamically stable. - Labs - WBCs 17.42, Creatinine 0.95. - Urine culture prelim E.coli; Blood cultures NGTD. - On Ceftriaxone. - Maintain Hair until more oriented, ambulating, and daily BM x 3 days. - Continue Flomax. - Urology will sign-off, please contact us with any further questions/concerns. Admission and Anticipated Discharge Date Admission Date: October 17, 2025 Subjective Patient seen at bedside. Sleeping at time of exam. Awakened briefly. Sitter at bedside. Hair intact with clear yellow urine in drainage bag. Review of Systems Constitutional: as per Subjective / HPI Genitourinary: + as per Subjective / HPI Physical Exam Constitutional: no acute distress Respiratory: no respiratory distress and no labored breathing Neurologic: moves all extremities and awake Psychiatric: A+Ox3, euthymic affect Results & Data Vital Signs (Past 12 Hours) Vital Signs Temp Pulse Resp BP Pulse Ox O2 Del Method 10/18/25 07:24 36.4 C L 107 H 20 165/79 H 100 Room Air PG Care Time/CCT Total # of Minutes Spent Total Time Spent with Patient: Total time spent is greater than 50% in coordination of care (as documented) at patient's floor/unit and/or counseling patient: Coding Level of Care Code None Diagnoses Urinary retention R33.9
--- NOTE | 2025-10-18 14:11 | Electrocardiogram Report ---
Test Reason : Blood Pressure : */* mmHG Vent. Rate : 100 BPM Atrial Rate : 100 BPM P-R Int : 132 ms QRS Dur : 78 ms QT Int : 282 ms P-R-T Axes : * -1 44 degrees QTcB Int : 363 ms Normal sinus rhythm Nonspecific T wave abnormality Abnormal ECG When compared with ECG of 13-Sep-2025 11:33, Nonspecific T wave abnormality now evident in Inferior leads Nonspecific T wave abnormality now evident in Lateral leads QT has shortened Confirmed by Howie Fox ([id number]) on 10/18/2025 2:11:04 PM Referred By: REFERRED SELF Confirmed By: Howie Fox
[2025-10-18] MEDS: ENOXAPARIN INJ 40 MG/0.4 ML SYR SQ SCH (16:33)
[2025-10-18] MEDS: cefTRIAXone SODIUM 2,000 MG/50 ML BAG IV SCH (17:39)
[2025-10-18 18:24] LABS: Amphetamines+Metham, Urine Neg (Neg); MDMA (Ecstacy), Urine Neg (Neg); Marijuana, Urine Neg (Neg)
[2025-10-18] MEDS: POTASSIUM CHLORIDE CRTAB 20 MEQ TABCR PO STA (18:31)
[2025-10-18] MEDS: PNEUMOCOCCAL VACCINE (PCV20) 20-VAL CONJ-DIP CRM/PF 0.5 ML SYR IM ONE (18:32)
--- NOTE | 2025-10-19 10:09 | Hospitalist Progress Note ---
Date of Service October 19, 2025 Assessment & Plan (1) Sepsis: (2) Altered mental status: (3) Acute UTI: (4) Leukocytosis: Plan Patient is a 80 y/o M PMHx COPD, HTN, CKD stage 3a, T2DM and depression who presented to the ED this morning via EMS for evaluation of acute mental. Patient is admitted for med/surg for treatment of altered mental status in the setting of sepsis 2/2 urinary tract infection. #Sepsis | acute UTI - WBC 21 in admission;10/17 Lactate 1.5 -->1.0 10/18; 10/17 UA showing cloudy urine, leuk esterase 3+, >50 WBC, 3-5 RBC, 4+ bacteria; 10/17 Urine Cx w/ E.coli; -Hx 2 UTIs in past 6 mos; hx urine cultures + Enterococcus and Klebsiella; Most recently discharged from [facility] for urosepsis August, -Urology Consulted: Signed Off; recs maintaining eden until walking w/ daily BM x3days -Procalcitonin Elevated 10/18, 10/19, will continue to monitor -10/17 Blood Cx, NGTD -Continue ceftriaxone 2g q24h -IV fluids NSS -CBC, BMP, Procalcitonin AM #Altered mental status - 10/18 TSH 0.271; 10/18 Urine Tox Neg; 10/18 B12 255 -Likely due to sepsis/UTI as above -Infection control as above -Orientation as needed -Continue to monitor w/ 1:1 -Vitamin B1 Pending -MRI Brain #Hypokalemia - EKG on admission NSR; unable to determine CP, SOB, palpitations d/t acute AMS -Trend BMP #JOSTIN on CKD stage 3 - RESOLVED; Cr 1.7 on admission (baseline 1.0) -likely d/2 dehydration, as patient appeared hypovolemic on exam -no evidence of obstructive uropathy -Trend BMP #HTN - pressures have been relatively stable since admission - most recent - continue home HCTZ, diltiazem and losartan #T2DM - currently diet controlled, last A1c 09/14/25 - 6.0 - continue to monitor DVT: Lovenox Dispo: Med/surg Admission and Anticipated Discharge Date Admission Date: October 17, 2025 Subjective Patient is laying in bed today in NAD. Though patient has been confused over the past few days, patient seems alert and oriented today. Patient continues to have difficulty expressing words, but is able to convey his desires via gestures, pointing, and small correct phrases such as "Yes," "Thank you," "Pleas e," and "I don't understand". Though difficulty with communication, pt was able to navigate his cellphone with little difficulty and was even able to Facetime with his , despite continued issues with communication. D/T difficulty with communication, it wasn't possible to obtain an accurate ROS, although no clear/acute signs of infection were present. Review of Systems Review of Systems: All systems reviewed & are unremarkable except as noted in Subjective Physical Exam Physical Exam: General: Pt is a 80 y/o WD/WN M in NAD, in bed - son and sitter at bedside VS: reviewed, remarkable - BP 151/84 Skin: Warm and dry; no lesions or ulcerations Respiratory: CTA bilat, no adventitious sounds noted. Chest expansion is full and symmetrical Cardio: RRR, no murmurs Abdomen: Round, normoactive BS x4, nontender to palpation MSK: FROM of extremities, no deformities - pt was able to exert force against passive movement of legs Extremities: no edema Neuro: A&Ox1, cooperative Results & Data Results & Data Vital Signs (Past 12 Hours) Vital Signs Temp Pulse Resp BP Pulse Ox O2 Del Method 10/19/25 06:56 98.4 F 81 17 149/72 H 99 Room Air 10/18/25 23:28 96.8 F L 88 16 130/67 97 Room Air Laboratory Results Reviewed: Procalcitonin, CBC, BMP PG Care Time/CCT Total # of Minutes Spent Total Time Spent with Patient: Total time spent is greater than 50% in coordination of care (as documented) at patient's floor/unit and/or counseling patient: Coding Level of Care Code 89802 SUB INP/OBS CARE 3/50MIN Diagnoses Sepsis A41.9 Altered mental status R41.82 Altered mental status type: unspecified Acute UTI N39.0 Leukocytosis D72.829 Leukocytosis type: unspecified (2) Altered mental status Altered mental status type: unspecified Qualified Code(s): R41.82 - Altered mental status, unspecified (4) Leukocytosis Leukocytosis type: unspecified Qualified Code(s): D72.829 - Elevated white blood cell count, unspecified
[2025-10-19 10:45] LABS: Hematocrit (blood only) 30.8 % (42.0-52.0); Hemoglobin 9.9 g/dL (14.0-18.0); Immature Granulocytes # (auto) 0.06 K/uL (0.01-0.20); Immature Granulocytes % (auto) 0.5 %; Mean Corpuscular Hemoglobin 25.2 pg (25.0-34.0); Mean Corpuscular Volume 78.4 fL (80.0-100.0); Platelet Count 363 K/uL (130-400); RDW Standard Deviation 43.6 fL (36.4-46.3); Red Blood Count 3.93 M/uL (4.70-6.10); White Blood Count 12.44 K/ul (4.8-10.8)
[2025-10-19 10:52] LABS: Anion Gap 12.0 (3-11); Blood Urea Nitrogen 13.0 mg/dl (6-23); Calcium 9.1 mg/dl (8.6-10.3); Carbon Dioxide 22.0 mmol/L (21-32); Chloride 104.0 mmol/L (98-107); Creatinine Clr Calc Pharmacy 52.8 ml/min; Glucose 84.0 mg/dl (70-99(Fasting)); Potassium 3.5 mmol/L (3.5-5.1); Sodium 138.0 mmol/L (136-145)
--- NOTE | 2025-10-19 22:13 | Magnetic Resonance Report ---
Exam(s): MRI HEAD Without Contrast EXAM: MR Head Without Intravenous Contrast CLINICAL HISTORY: Reason for exam: Continued Aphasia. OTHER: Other Notes: continued aphasia, PT unable to fully cooperate, screened PT through his Lidia Flores over the phone TECHNIQUE: Magnetic resonance images of the head/brain without intravenous contrast in multiple planes. Moderate motion artifact. COMPARISON: CT/CTA head, same day. FINDINGS: Brain: Moderate volume acute infarct left posterior temporal and parietal lobe, with additional scattered punctate areas of subcortical infarct left frontal lobe. Probable MCA branch vessel territory. Moderate atrophy and mild, chronic, nonspecific white matter disease. No mass effect, or herniation. Small hemorrhagic areas in the left posterior temporal lobe. Ventricles: No hydrocephalus or midline shift. Bones/joints: No acute finding. Soft tissues: No scalp hematoma. Visualized Sinuses: Clear. Mastoid air cells: No mastoid effusion. IMPRESSION: 1. 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 2. No hydrocephalus, midline shift or herniation. 3. Moderate motion artifact. Communications: Verify Receipt Electronically signed by: Rossana Mccabe M.D. 10/19/25 22:13 PM
--- NOTE | 2025-10-20 08:22 | Hospitalist Progress Note ---
Date of Service October 20, 2025 Assessment & Plan (1) Sepsis: (2) Altered mental status: (3) Acute UTI: (4) Leukocytosis: Plan Patient is a 80 y/o M PMHx COPD, HTN, CKD stage 3a, T2DM and depression who presented to the ED this morning via EMS for evaluation of acute mental. Patient is admitted for med/surg for treatment of altered mental status in the setting of sepsis 2/2 urinary tract infection. #Left Temporoparietal Lobe infarct - 10/19 MRI w/ moderate volume acute infarct of Lt temporoparietal lobe w/ minimal hemorrhagic components in the temporal lobe -Neurology Consulted: in setting of sepsis, consider endocarditis - CTA of chest if medically appropriate -Continue ASA 81mg PO daily -Transition Rosuvastatin 5mg to Atorvastatin 80mg PO daily -Venous Doppler Study: No DVT of either lower extremity -TTE: Lt ventricular systolic function is normal, no significant valvular heart disease #Sepsis | acute UTI - WBC 21 in admission;10/17 Lactate 1.5 -->1.0 10/18; 10/17 UA showing cloudy urine, leuk esterase 3+, >50 WBC, 3-5 RBC, 4+ bacteria; 10/17 Urine Cx w/ E.coli; -Hx 2 UTIs in past 6 mos; hx urine cultures + Enterococcus and Klebsiella; Most recently discharged from [facility] for urosepsis August, -Urology Consulted: Signed Off; recs maintaining eden until walking w/ daily BM x3days -Procalcitonin Elevated 10/18, 10/19, will continue to monitor -10/17 Blood Cx, NGTD -Continue ceftriaxone 2g q24h -IV fluids NSS -CBC, BMP, Procalcitonin AM #RML Pneumonia - 10/20 CXR w/ Patchy airspace consolidation in the RML con sistent with PNA, follow-up recommended -Sputum Culture -Ceftriaxone as above -Add Azithromycin 500mg IV daily -Supplemental O2 prn (Goal Sat 90%, wean as tolerated) #Altered mental status - 10/18 TSH 0.271; 10/18 Urine Tox Neg; 10/18 B12 255; 10/19 Brain MRI w/ moderate volume acute infarct Lt temporoparietal lobe, with minimal hemorrhagic components in the temporal lobe -Likely due to sepsis/UTI as above -Infection control as above -Orientation as needed -Continue to monitor w/ 1:1 -Vitamin B1 Pending #Hypokalemia - EKG on admission NSR; unable to determine CP, SOB, palpitations d/t acute AMS -Trend BMP #JOSTIN on CKD stage 3 - RESOLVED; Cr 1.7 on admission (baseline 1.0) -likely d/2 dehydration, as patient appeared hypovolemic on exam -no evidence of obstructive uropathy -Trend BMP #HTN - pressures have been relatively stable since admission - most recent 165/79 - continue home HCTZ, diltiazem and losartan #T2DM - currently diet controlled, last A1c 09/14/25 - 6.0 - continue to monitor DVT: Lovenox Dispo: Med/surg Son updated at bedside 10/19, updated via phone on 10/20 Son, Mynor: [phone] Admission and Anticipated Discharge Date Admission Date: October 17, 2025 Supervising Physician Co-Signing Physician Notes The patient was not seen by me. Chart reviewed. Case discussed with OPAL Crawford. Agree with assessment and plan. Subjective Patient is laying in bed today in NAD. Though patient has been confused over the past few days, patient seems alert and oriented today. Patient continues to have difficulty expressing words, but is able to convey his desires via ges tures, pointing, and small correct phrases such as "Yes," "Thank you," "Please," and "I don't understand". Pt was able to read simple words off of cellphone screen out loud today when asked. Pt unable to tell me his age or answer what month it is. Pt very clearly frustrated with difficulty communicating his needs/desires. Pt has notable cough on exam today, although denies experiencing any SOB when asked. Pt replied 'no' to the following: congestion, sore throat, chest pain, palpitations, abdominal pain, N/V/D. Review of Systems Review of Systems: All systems reviewed & are unremarkable except as noted in Subjective Physical Exam Physical Exam: General: Pt is a 80 y/o WD/WN M in NAD, in bed - son and sitter at bedside VS: reviewed, remarkable - BP 151/84 Skin: Warm and dry; no lesions or ulcerations Respiratory: Slight d/c in breath sounds on R side, otherwise CTA w/ no additional adventitious sounds. Cardio: RRR, no murmurs Abdomen: Round, normoactive BS x4, nontender to palpation MSK: FROM of extremities, no deformities - pt was able to exert force against passive movement of legs Extremities: no edema Neuro: A&Ox1, cooperative Results & Data Results & Data Vital Signs (Past 12 Hours) Vital Signs Temp Pulse Pulse Resp BP Pulse Ox O2 Del Method 10/20/25 07:08 98.1 F 82 18 173/72 H 98 Room Air 10/19/25 23:39 99.0 F 91 H 18 163/77 H 94 Room Air Laboratory Results Reviewed: CBC, BMP, Procal Diagnostic Findings Reviewed: CXR, Venous doppler PG Care Time/CCT Total # of Minutes Spent Total Time Spent with Patient: Total time spent is greater than 50% in coordination of care (as documented) at patient's floor/unit and/or counseling patient: Coding Level of Care Code 92677 SUB INP/OBS CARE 3/50MIN Diagnoses Sepsis A41.9 Altered mental status R41.82 Altered mental status type: unspecified Acute UTI N39.0 Leukocytosis D72.829 Leukocytosis type: unspecified (2) Altered mental status Altered mental status type: unspecified Qualified Code(s): R41.82 - Altered mental status, unspecified (4) Leukocytosis Leukocytosis type: unspecified Qualified Code(s): D72.829 - Elevated white blood cell count, unspecified
[2025-10-20] MEDS: ATORVASTATIN 40 MG TAB PO SCH (12:14)
--- NOTE | 2025-10-20 13:29 | Neurology Consultation ---
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 He has extremely p oor verbal comprehension, makes frequent word substitutions and paraphasic errors, his speech is generally fluent. He does not have an associated hemiparesis or obvious visual field deficit. 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 This finding would not be responsible for his acute left MCA distribution infarcts. I tend to suspect a cardioembolic etiology. He has been admitted with UTI and sepsis. His blood cultures appear to be negative. I would recommend a transthoracic echocardiogram with bubble study. Assess for PFO, also rule out valvular vegetations. A lower extremity ultrasound would not be unreasonable to assess for DVT, although nothing obvious on his clinical examination in this regard. Although his stroke does have minimal hemorrhagic components, I agree with daily low-dose aspirin and atorvastatin as ordered. Would recommend a repeat noncontrast CT of the head either tonight or tomorrow morning to assess for any significant interval change in this finding. Continue treatment of sepsis and associated metabolic abnormality, acute kidney injury on chronic kidney disease. Continue blood pressure management per stroke protocol. He does not require an EEG at this time. He does not require a lumbar puncture at this time. Consult rehabilitation services, PT/OT/speech therapy. I do expect his degree of receptive aphasia to gradually improve over time, likely allowing for some participation with rehabilitation. As an outpatient, consider obtaining a 30-day cardiac monitoring if atrial fibrillation is not identified during this acute hospitalization. Please call with any questions. History of Present Illness Reason for Consultation: Stroke Requesting Physician: Daniel Attending Physician: Ruy Su MD History of Present Illness The patient is an 80-year-old male who presented to the emergency department October 17, 2025 with altered mental status. He was last known well the previous evening. He did have a telestroke consultation, TNKase was not administered. He was admitted with a diagnosis of sepsis, urinary tract infection. Initial CT of the head was negative for acute process. CT angiography of the head and neck indicated a suspected severe stenosis of the right carotid bulb and was otherwise unremarkable. His confusion has persisted. He did have a brain MRI completed yesterday. I independently reviewed these images. There is a moderate sized acute infarct within the left temporoparietal region with minimal hemorrhagic components. There are multiple areas of acute infarct within the left posterior MCA territory, appearance is suggestive of embolism. There is generalized atrophy and chronic small vessel ischemic disease as well. He has been receiving ceftriaxone. He had been on aspirin and rosuvastatin as an outpatient, low-dose aspirin has been continued, rosuvastatin has been discontinued in favor of atorvastatin. Electrocardiogram indicated normal sinus rhythm, 100 bpm. Blood cultures have been negative. E. coli identified on urine culture. Currently, the patient remains confused, with persistent altered mental status, he exhibits a fluent aphasia and is an extremely limited historian. Allergies Allergy/AdvReac Type Severity Reaction Status Date / Time morphine AdvReac Severe PT HAD TOO Verified 10/17/25 15:56 MUCH POST OP-WAS PUT IN ICU FOR MONITORING Home Medications Medication Instructions Recorded Confirmed Type aspirin 81 mg tablet,delayed 81 mg PO DAILY 04/17/25 10/17/25 History release gabapentin 300 mg capsule 300 mg PO TID 04/17/25 10/17/25 History hydrochlorothiazide 25 mg tablet 25 mg PO QAM 04/17/25 10/17/25 History pantoprazole 40 mg tablet,delayed 40 mg PO QAM 04/17/25 10/17/25 History release rosuvastatin 5 mg tablet 5 mg PO QAM 04/17/25 10/17/25 History sennosides 8.6 mg capsule (senna) 8.6 mg PO BID 04/17/25 10/17/25 History tramadol 50 mg tablet 50 mg PO Q6H PRN PAIN/SEVERE PAIN 04/17/25 10/17/25 History lorazepam 1 mg tablet 1 mg PO TID PRN Sleep 09/13/25 10/17/25 History losartan 100 mg tablet 100 mg PO DAILY 09/13/25 10/17/25 History diltiazem HCl 360 mg 360 mg PO QAM 10/17/25 10/17/25 History capsule,extended release 24 hr hyoscyamine sulfate 0.125 mg tablet 0.125 mg PO TID PRN cramping 10/17/25 10/17/25 History ondansetron 4 mg disintegrating 4 mg PO Q8 PRN Nausea 10/17/25 10/17/25 History tablet polyethylene glycol 3350 17 17 g PO DAILY 10/17/25 10/17/25 History gram/dose oral powder (Miralax) promethazine 12.5 mg tablet 12.5 mg PO Q6 PRN Nausea 10/17/25 10/17/25 History tamsulosin 0.4 mg capsule 0.4 mg PO DAILY 10/17/25 10/17/25 History Patient History Medical History Depression with anxiety CKD (chronic kidney disease) stage 3, GFR 30-59 ml/min COPD (chronic obstructive pulmonary disease) HTN (hypertension) T2DM (type 2 diabetes mellitus) Surgical History Hx of hernia repair Hx of tonsillectomy Hx laparoscopic cholecystectomy History of partial colectomy Family History Mother Heart disease Social History Smoking Status: Unknown if ever smoked Tobacco Type: E-cigarettes / Vaping packs per day: 0.3; Hx Substance Use: No Preferred Language: [place]ar[place]uan Communication Ability: Effective Pmp Required: No Beliefs That Will Affect Care: None Current Living Situation: Family Current Living Situation Comment: home with son and his family Feels Safe at Home: Yes Assistive Devices: None Review of Systems Review of Systems: Unobtainable due to cognitive status Exam (Neuro) Constitutional: well developed; no acute distress Eyes: normal visual buchanan by confrontation, PERRL and EOM intact bilaterally; no nystagmus Neurologic: Oriented to:: Person; negative Place or Time Cognitive Function: negative Attention Memory: negative Short Term Intact or Remote Intact Attention: negative Span Intact Language: negative Naming Objects or Repeating Phrases Speech Fluency: Limited Comprehension and Other (Fluent but with paraphasic errors and word substitutions) Speech Aphasia: Wernicke's Aphasia Cranial Nerves: Normal II, III, IV, , V, VIII, IX, X, XI and XII; Abnorm VII Motor Strength: Normal Lower Extremities and Normal Upper Extremities Motor Tone: Normal Lower Extremities and Normal Upper Extremities Muscle Bulk/Involuntary Movements: No Involuntary Movements; negative Muscle Atrophy Sensation: Light Touch Intact and Pain/Temperature Intact Deep Tendon Reflexes: Rt Triceps: 2+, Lt Triceps: 2+, Rt Biceps: 2+, Lt Biceps: 2+, Rt Brachioradialis: 2+, Lt Brachioradialis: 2+, Rt Patellar: 2+, Lt Patellar: 2+, Rt Ankle: 1+ and Lt Ankle: 1+ Special Tests: negative Babinski Present Results & Data Vital Signs (Past 12 Hours) Vital Signs Temp Pulse Resp BP Pulse Ox O2 Del Method 10/20/25 07:18 Room Air 10/20/25 07:08 36.7 C 82 18 173/72 H 98 Room Air Laboratory Results WBC 12.44, hemoglobin 9.9, hematocrit 30.8, MCV 78.4, platelet count 363, sodium 138, potassium 3.5, BUN 13, creatinine 0.87, glucose 84, calcium 9.1 Coding Level of Care Code 83710 INT INP/OBS CARE 3/75MIN Diagnoses Acute embolic stroke I63.9 Wernicke's receptive aphasia F80.2 Time Spent (min) 90 Comment Total time includes patient contact, chart review, counseling, note preparation
[2025-10-20 13:31] LABS: Hematocrit (blood only) 29.0 % (42.0-52.0); Hemoglobin 9.4 g/dL (14.0-18.0); Immature Granulocytes # (auto) 0.04 K/uL (0.01-0.20); Immature Granulocytes % (auto) 0.4 %; Mean Corpuscular Hemoglobin 24.7 pg (25.0-34.0); Mean Corpuscular Volume 76.3 fL (80.0-100.0); Platelet Count 314 K/uL (130-400); RDW Standard Deviation 41.3 fL (36.4-46.3); Red Blood Count 3.80 M/uL (4.70-6.10); White Blood Count 9.69 K/ul (4.8-10.8)
[2025-10-20 13:47] LABS: Anion Gap 9.0 (3-11); Blood Urea Nitrogen 8.0 mg/dl (6-23); Calcium 8.4 mg/dl (8.6-10.3); Carbon Dioxide 24.0 mmol/L (21-32); Chloride 100.0 mmol/L (98-107); Creatinine Clr Calc Pharmacy 62.1 ml/min; Glucose 145.0 mg/dl (70-99(Fasting)); Potassium 2.9 mmol/L (3.5-5.1); Sodium 133.0 mmol/L (136-145)
--- NOTE | 2025-10-20 13:52 | XCELERA ---
[id number]
--- NOTE | 2025-10-20 13:54 | XRay Report ---
SINGLE VIEW CHEST CLINICAL HISTORY: Cough FINDINGS: An AP, portable, upright chest radiograph is compared to study dated 10/17/2025. Correlatio n is made with chest CT dated 02/22/[address] dated 10/17/2025. The heart is enlarged noti ng atherosclerotic calcification of the thoracic aorta. Patchy airspace consolidation is again seen i n the right mid lung. Left lung appears clear. No large pleural effusion or pneumothorax is identifie d. The skeletal structures are osteopenic. The bony thorax is grossly intact. Cholecystectomy clips a re seen in the right upper quadrant. IMPRESSION: 1. Cardiomegaly without radiographic evidence of congestive failure. 2. Patchy airspace consolidation in the right midlung is typical for pneumonia. Continued follow-up t o resolution is recommended. ACT 112: Negative or not required by law. Electronically signed by: Brandan Anaya M.D. 10/20/2025 1:53 PM
--- NOTE | 2025-10-20 14:24 | Ultrasound Report ---
EXAM: US Duplex Bilateral Lower Extremities Veins INDICATION: Pain TECHNIQUE: Real-time duplex ultrasound scan of the bilateral lower extremity veins integrating B-mode two-dimensional vascular structure, Doppler spectral analysis, color flow Doppler imaging and compression. COMPARISON: No relevant prior studies available. FINDINGS: Right deep veins: No DVT in the right common femoral, femoral or popliteal veins. The veins demonstrate normal color flow, are normally compressible, with normal phasic flow and/or augmentation response. Right superficial veins: No abnormality noted. No thrombus in the visualized right great saphenous vein. Left deep veins: No DVT in the left common femoral, femoral or popliteal veins. The veins demonstrate normal color flow, are normally compressible, with normal phasic flow and/or augmentation response. Left superficial veins: No abnormality noted. No thrombus in the visualized left great saphenous vein. Soft tissues: No abnormality noted. IMPRESSION: No deep venous thrombosis of either lower extremity. Electronically signed by Leatha Mclaughlin 10-20-2025 2:24 PM
[2025-10-20] MEDS: AZITHROMYCIN 500 MG/255 ML BAG IV SCH (18:13)
[2025-10-21] MEDS: ACETAMINOPHEN 325 MG TAB PO PRN (05:28)
[2025-10-21 06:21] LABS: Hematocrit (blood only) 34.1 % (42.0-52.0); Hemoglobin 11.1 g/dL (14.0-18.0); Immature Granulocytes # (auto) 0.03 K/uL (0.01-0.20); Immature Granulocytes % (auto) 0.4 %; Mean Corpuscular Hemoglobin 25.2 pg (25.0-34.0); Mean Corpuscular Volume 77.3 fL (80.0-100.0); Platelet Count 386 K/uL (130-400); RDW Standard Deviation 41.8 fL (36.4-46.3); Red Blood Count 4.41 M/uL (4.70-6.10); White Blood Count 7.81 K/ul (4.8-10.8)
[2025-10-21 06:38] LABS: Anion Gap 11.0 (3-11); Blood Urea Nitrogen 5.0 mg/dl (6-23); Calcium 8.8 mg/dl (8.6-10.3); Carbon Dioxide 24.0 mmol/L (21-32); Chloride 98.0 mmol/L (98-107); Creatinine Clr Calc Pharmacy 58.9 ml/min; Glucose 97.0 mg/dl (70-99(Fasting)); Potassium 2.9 mmol/L (3.5-5.1); Sodium 133.0 mmol/L (136-145)
--- NOTE | 2025-10-21 08:29 | Hospitalist Progress Note ---
Date of Service October 21, 2025 Assessment & Plan (1) Sepsis: (2) Altered mental status: (3) Acute UTI: (4) Leukocytosis: Plan Patient is a 80 y/o M PMHx COPD, HTN, CKD stage 3a, T2DM and depression who presented to the ED this morning via EMS for evaluation of acute mental. Patient is admitted for med/surg for treatment of altered mental status in the setting of sepsis 2/2 urinary tract infection. #Left Temporoparietal Lobe infarct - 10/19 MRI w/ moderate volume acute infarct of Lt temporoparietal lobe w/ minimal hemorrhagic components in the temporal lobe; 10/20 Venous Doppler w/ no DVT in LE bilat; 10/20 TTE Lt ventricular systolic function in WNL, no significant valvular heart disease -Neurology Consulted: in setting of sepsis, consider endocarditis - CTA of chest if medically appropriate -Repeat Non-contrast Head CT -Continue ASA 81mg PO daily -Transition Rosuvastatin 5mg to Atorvastatin 80mg PO daily #Sepsis | acute UTI - WBC 21 in admission;10/17 Lactate 1.5 -->1.0 10/18; 10/17 UA showing cloudy urine, leuk esterase 3+, >50 WBC, 3-5 RBC, 4+ bacteria; 10/17 Urine Cx w/ E.coli; -Hx 2 UTIs in past 6 mos; hx urine cultures + Enterococcus and Klebsiella; Most recently discharged from [facility] for urosepsis August, -Urology Consulted: Signed Off; recs maintaining eden until walking w/ daily BM x3days -Procalcitonin Elevated 10/18, 10/19, will continue to monitor -10/17 Blood Cx, NGTD -Continue ceftriaxone 2g q24h -IV fluids NSS -CBC, BMP in AM -Urine Chlam+GC RNA Son notes that pt will often visit w/ in hospital and develops UTI shorly after #RML Pneumonia - 10/20 CXR w/ Patchy airspace consolidation in the RML consistent with PNA, follow-up recommended -Sputum Culture -Ceftriaxone as above -Continue Azithromycin 500mg IV daily -Supplemental O2 prn (Goal Sat 90%, wean as tolerated) #Altered mental status - 10/18 TSH 0.271; 10/18 Urine Tox Neg; 10/18 B12 255; 10/19 Brain MRI w/ moderate volume acute infarct Lt temporoparietal lobe, with minimal hemorrhagic components in the temporal lobe -Likely due to sepsis/UTI as above -Infection control as above -Orientation as needed -Continue to monitor w/ 1:1 -Vitamin B1 Pending #Hypokalemia - EKG on admission NSR; unable to determine CP, SOB, palpitations d/t acute AMS -Trend BMP #JOSTIN on CKD stage 3 - RESOLVED; Cr 1.7 on admission (baseline 1.0) -likely d/2 dehydration, as patient appeared hypovolemic on exam -No evidence of obstructive uropathy -Trend BMP #HTN - pressures have been relatively stable since admission - most recent -Continue diltiazem, add in Losartan - reassess in afternoon -Continue to hold HCTZ #T2DM - currently diet controlled, last A1c 09/14/25 - 6.0 -Continue to monitor DVT: Lovenox Dispo: Med/surg Son updated at bedside 10/19, updated via phone on 10/20 Son, Mynor: [phone] Admission and Anticipated Discharge Date Admission Date: October 17, 2025 Supervising Physician Co-Signing Physician Notes The patient was not seen by me. Chart reviewed. Case discussed with OPAL Crawford. Agree with assessment and plan. Subjective Pt was seen walking through hallway with PT/OT when I first arrived at his room. PT/OT at that time stated that patient was with great mobility, pt expressed agreed with this. Pt's ability to communicate continues to improve during in patient stay and he is able to express that he can understand what it being said to him but struggles to get the right words. Simple phrases appear to be easiest for the patient such as "Thank you," "Yes" "No" "Very much/good" "Understand" and "Frustrating". He was able to express that he is concerned for his whom is also in the hospital. ROS: Pt endorses: frustration with difficulty speaking Pt denies: cough, congestion, sore throat, SOB, CP, abdominal pain/discomfort, N/V/D, light headedness, LUTS, and difficulty with ambulation Review of Systems 2 Review of Systems: All systems reviewed & are unremarkable except as noted in Subjective Physical Exam Physical Exam: General: Pt is a 80 y/o WD/WN M in NAD, in bed - son and sitter at bedside VS: reviewed, remarkable - BP 182/56 Skin: Warm and dry; no lesions or ulcerations Respiratory: Slight d/c in breath sounds on R side, otherwise CTA w/ no additional adventitious sounds. Cardio: RRR, no murmurs Abdomen: Round, normoactive BS x4, nontender to palpation MSK: FROM of extremities, no deformities - pt ambulating with ease while PT present Extremities: no edema Neuro: A&Ox4 but has difficulty speaking, cooperative Results & Data Results & Data Vital Signs (Past 12 Hours) Vital Signs Temp Pulse Resp BP Pulse Ox O2 Del Method 10/21/25 08:15 97.7 F 71 18 182/66 H 98 Room Air 10/21/25 06:50 Room Air 10/20/25 22:43 97.9 F 76 16 148/82 H 96 Room Air Laboratory Results Reviewed: CBC, BMP, Procalcitonin PG Care Time/CCT Total # of Minutes Spent Total Time Spent with Patient: Total time spent is greater than 50% in coordination of care (as documented) at patient's floor/unit and/or counseling patient: A total of 64 minutes was spent with patient between direct patient encounter (37 minutes), chart review, review + interpretation of labs/imaging, documentation, and coordination of care. Coding Level of Care Code 04189 SUB INP/OBS CARE 3/50MIN Diagnoses Sepsis A41.9 Altered mental status R41.82 Altered mental status type: unspecified Acute UTI N39.0 Leukocytosis D72.829 Leukocytosis type: unspecified (2) Altered mental status Altered mental status type: unspecified Qualified Code(s): R41.82 - Altered mental status, unspecified (4) Leukocytosis Leukocytosis type: unspecified Qualified Code(s): D72.829 - Elevated white blood cell count, unspecified
[2025-10-21] MEDS ORDERED: DILTIAZEM HCL 360 MG PO SCH (11:30)
[2025-10-21] MEDS: LOSARTAN POTASSIUM 50 MG TAB PO SCH (12:06)
--- NOTE | 2025-10-21 13:26 | CT Scan Report ---
EXAM: CT Head Without Intravenous Contrast INDICATION: Follow-up stroke TECHNIQUE: Axial computed tomography images of the head/brain without intravenous contrast. Sagittal and/or coronal reformats are provided. Sagittal and coronal reformatted images were created and reviewed. This CT exam was performed using one or more of the following dose reduction techniques: automated exposure control, adjustment of the mA and/or kV according to patient size, and/or use of iterative reconstruction technique. COMPARISON: 10/17/2025 FINDINGS: Limitations: None. Brain and extra-axial spaces: There is acute to subacute nonhemorrhagic edema in the left parietal and occipital lobes. No mass effect. Underlying chronic small vessel ischemic change and cortical atrophy. Bones/joints: No acute changes. Soft tissues: No acute abnormality noted. Vasculature: Intracranial atherosclerosis noted. Sinuses: No layering fluid in the visualized portions of the paranasal sinuses. Mastoid air cells: No mastoid effusion. Orbits: No acute abnormality noted. IMPRESSION: Acute to subacute nonhemorrhagic infarct left parietal and occipital lobes. ACT 112: N/A Electronically signed by Leatha Mclaughlin 10-21-2025 13:25 PM
[2025-10-22 06:17] LABS: Hematocrit (blood only) 31.5 % (42.0-52.0); Hemoglobin 10.2 g/dL (14.0-18.0); Immature Granulocytes # (auto) 0.05 K/uL (0.01-0.20); Immature Granulocytes % (auto) 0.6 %; Mean Corpuscular Hemoglobin 25.0 pg (25.0-34.0); Mean Corpuscular Volume 77.2 fL (80.0-100.0); Platelet Count 382 K/uL (130-400); RDW Standard Deviation 40.9 fL (36.4-46.3); Red Blood Count 4.08 M/uL (4.70-6.10); White Blood Count 8.91 K/ul (4.8-10.8)
[2025-10-22 06:33] LABS: Anion Gap 9.0 (3-11); Blood Urea Nitrogen 7.0 mg/dl (6-23); Calcium 8.5 mg/dl (8.6-10.3); Carbon Dioxide 25.0 mmol/L (21-32); Chloride 98.0 mmol/L (98-107); Creatinine Clr Calc Pharmacy 58.2 ml/min; Glucose 99.0 mg/dl (70-99(Fasting)); Potassium 2.9 mmol/L (3.5-5.1); Sodium 132.0 mmol/L (136-145)
--- NOTE | 2025-10-22 08:28 | Hospitalist Progress Note ---
Date of Service October 22, 2025 Assessment & Plan (1) Sepsis: (2) Altered mental status: (3) Acute UTI: (4) Leukocytosis: Plan Patient is a 80 y/o M PMHx COPD, HTN, CKD stage 3a, T2DM and depression who presented to the ED this morning via EMS for evaluation of acute mental. Patient is admitted for med/surg for treatment of altered mental status in the setting of sepsis 2/2 urinary tract infection. #Left Temporoparietal Lobe infarct - 10/19 MRI w/ moderate volume acute infarct of Lt temporoparietal lobe w/ minimal hemorrhagic components in the temporal lobe; 10/20 Venous Doppler w/ no DVT in LE bilat; 10/20 TTE Lt ventricular systolic function in WNL, no significant valvular heart disease; 10/[address] didn't demonstrate any hemorrhage -Neurology Consulted: in setting of sepsis, consider endocarditis - CTA of chest if medically appropriate -Pt transitioned from ASA to Plavix -Continue Atorvastatin 80mg PO daily -Discussed Revaluation w/ ST #Sepsis | acute UTI - WBC 21 in admission;10/17 Lactate 1.5 -->1.0 10/18; 10/17 UA showing cloudy urine, leuk esterase 3+, >50 WBC, 3-5 RBC, 4+ bacteria; 10/17 Urine Cx w/ E.coli; -Hx 2 UTIs in past 6 mos; hx urine cultures + Enterococcus and Klebsiella; Most recently discharged from [facility] for urosepsis August, -Urology Consulted: Signed Off -Hair Removed, will do voiding trial -10/17 Blood Cx, NGTD -Transition from IV Rocephin to PO Cefuroxime -IV fluids NSS -CBC, BMP in AM -Urine Chlam+GC RNA ordered 10/21 - Son notes that pt will often visit w/ in hospital and develops UTI shorly after #RML Pneumonia - 10/20 CXR w/ Patchy airspace consolidation in the RML consistent with PNA, follow-up recommended -Sputum Culture ordered 10/20 -Cefuroxime 500mg PO BID for a total of 7 days -Transition Azithromycin 500mg IV daily to PO Azithromycin for a total of 5 days -Supplemental O2 prn (Goal Sat 90%, wean as tolerated) #Altered mental status - RESOLVED, no longer requiring 1:1; 10/18 TSH 0.271; 10/18 Urine Tox Neg; 10/18 B12 255; 10/19 Brain MRI w/ moderate volume acute infarct Lt temporoparietal lobe, with minimal hemorrhagic components in the temporal lobe -Likely due to sepsis/UTI as above -Infection control as above -Orientation as needed -Vitamin B1 Pending #Hypokalemia - EKG on admission NSR; unable to determine CP, SOB, palpitations d/t acute AMS -10/22 2.9; replete KCl IV 10mEq x6bags -Recheck K in afternoon, 3.2 up trending w/ infusion -Trend BMP #JOSTIN on CKD stage 3 - RESOLVED; Cr 1.7 on admission (baseline 1.0) -likely d/2 dehydration, as patient appeared hypovolemic on exam -No evidence of obstructive uropathy -Trend BMP #HTN - pressures have been relatively stable since admission - most recent -Continue diltiazem, add in Losartan - reassess in afternoon -Continue to hold HCTZ #T2DM - currently diet controlled, last A1c 09/14/25 - 6.0 -Continue to monitor DVT: Lovenox Dispo: Med/surg Son updated at bedside 10/19, updated via phone on 10/20 Son, Mynor: [phone] Admission and Anticipated Discharge Date Admission Date: October 17, 2025 Supervising Physician Co-Signing Physician Notes The patient was not seen by me. Chart reviewed. Case discussed with OPAL Crawford. Agree with assessment and plan. Subjective Pt was sitting at bedside in NAD. Pt was clothed well today and was in a pleasant mood. Pt states that he is feeling "very good". Despite some difficulties with speaking, pt is still able to speak in simple phrases and answer questions. He denies cough, congestion, sore throat, SOB, CP, palpitations, abd pain/discomfort, N/V/D, dizziness, lightheadedness, and difficulty walking. Pt's came to bedside later on and I was able to discuss pt's plan of care with her as well Review of Systems Review of Systems: All systems reviewed & are unremarkable except as noted in Subjective Physical Exam Physical Exam: General: Pt is a 80 y/o WD/WN M in NAD, in bed - at bedside VS: reviewed, remarkable - BP 164/86 Skin: Warm and dry; no lesions or ulcerations Respiratory: Slight d/c in breath sounds on R side, otherwise CTA w/ no additional adventitious sounds. Cardio: RRR, no murmurs Abdomen: Round, normoactive BS x4, nontender to palpation MSK: FROM of extremities, no deformities Extremities: no edema Neuro: A&Ox4 but has difficulty speaking, cooperative Results & Data Results & Data Vital Signs (Past 12 Hours) Vital Signs Temp Pulse Resp BP Pulse Ox O2 Del Method 10/22/25 07:17 98.1 F 73 18 164/68 H 98 Room Air 10/21/25 23:09 97.7 F 79 16 144/69 H 95 Room Air Laboratory Results Reviewed: CBC, BMP, Potassium PG Care Time/CCT Total # of Minutes Spent Total Time Spent with Patient: Total time spent is greater than 50% in coordination of care (as documented) at patient's floor/unit and/or counseling patient: A total of 65 minutes was spent on patient care to include direct patient interaction, later discussion with while pt present, review of chart, review and interpretation of labs, documentation and coordination of care. Coding Level of Care Code 87493 SUB INP/OBS CARE 3/50MIN Diagnoses Sepsis A41.9 Altered mental status R41.82 Altered mental status type: unspecified Acute UTI N39.0 Leukocytosis D72.829 Leukocytosis type: unspecified (2) Altered mental status Altered mental status type: unspecified Qualified Code(s): R41.82 - Altered mental status, unspecified (4) Leukocytosis Leukocytosis type: unspecified Qualified Code(s): D72.829 - Elevated white blood cell count, unspecified
[2025-10-22] MEDS: CLOPIDOGREL BISULFATE 75 MG TAB PO SCH (09:33)
[2025-10-22] MEDS: POTASSIUM CHLORIDE / WTR 10 MEQ/100 ML PLCT IV SCH (09:33)
[2025-10-22 12:32] LABS: Chlam trach RNA(Genit,Ureth,Ur Not Detected (NotDetected); GC(Neis gon)RNA(Genit,Ureth,Ur Not Detected (NotDetected)
[2025-10-22] MEDS: AZITHROMYCIN 250 MG TAB PO ONE (17:53)
--- NOTE | 2025-10-23 08:47 | Hospitalist Progress Note ---
"Date of Service October 23, 2025 Assessment & Plan (1) Sepsis: (2) Altered mental status: (3) Acute UTI: (4) Leukocytosis: Plan Patient is a 80 y/o M PMHx COPD, HTN, CKD stage 3a, T2DM and depression who presented to the ED this morning via EMS for evaluation of acute mental status change. #Left Temporoparietal Lobe infarct - 10/19 MRI w/ moderate volume acute infarct of Lt temporoparietal lobe w/ minimal hemorrhagic components in the temporal lobe; 10/20 Venous Doppler w/ no DVT in LE bilat; 10/20 TTE Lt ventricular systolic function in WNL, no significant valvular heart disease; 10/[address] didn't demonstrate any hemorrhage -Neurology Consulted: in setting of sepsis, consider endocarditis - CTA of chest if medically appropriate -Continue Plavix - was previously on ASA when ischemic CVA occured -Continue Atorvastatin 80mg PO daily -Speech Therapy recommending intensive outpatient therapy #Sepsis | acute UTI - WBC 21 in admission;10/17 Lactate 1.5 -->1.0 10/18; 10/17 UA showing cloudy urine, leuk esterase 3+, >50 WBC, 3-5 RBC, 4+ bacteria; 10/17 Urine Cx w/ E.coli; 10/21 Chlam + GC RNA urine test negative -Hx 2 UTIs in past 6 mos; hx urine cultures + Enterococcus and Klebsiella; Most recently discharged from [facility] for urosepsis August, -Urology Consulted: Signed Off -Hair removed, pt voiding without difficulty -10/17 Blood Cx, NGTD -Transition from IV Rocephin to PO Cefuroxime -CBC, BMP in AM #RML Pneumonia - 10/20 CXR w/ Patchy airspace consolidation in the RML consistent with PNA, follow-up recommended -Sputum Culture ordered 10/20, remains uncollected -Cefuroxime 500mg PO BID for a total of 7 days -PO Azithromycin for a total of 5 days, including doses IV azithromycin -Supplemental O2 prn (Goal Sat 90%, wean as tolerated) #Altered mental status - RESOLVED, no longer requiring 1:1; 10/18 TSH 0.271; 10/18 Urine Tox Neg; 10/18 B12 255; 10/19 Brain MRI w/ moderate volume acute infarct Lt temporoparietal lobe, with minimal hemorrhagic components in the temporal lobe -Likely due to sepsis/UTI as above -Infection control as above -Orientation as needed -Vitamin B1 Pending #Hypokalemia - EKG on admission NSR; unable to determine CP, SOB, palpitations d/t acute AMS -Trend BMP #JOSTIN on CKD stage 3 - RESOLVED; Cr 1.7 on admission (baseline 1.0) -likely d/2 dehydration, as patient appeared hypovolemic on exam -No evidence of obstructive uropathy -Trend BMP #HTN - pressures have been relatively stable since admission - most recent -Continue diltiazem, add in Losartan - reassess in afternoon -Restart HCTZ #T2DM - currently diet controlled, last A1c 09/14/25 - 6.0 -Continue to monitor DVT: Continue Plavix; continue to encourage ambulation Dispo: Med/surg Family updated at bedside 10/23 Admission and Anticipated Discharge Date Admission Date: October 17, 2025 Supervising Physician Co-Signing Physician Notes The patient was not seen by me. Chart reviewed. Case discussed with OPAL Crawford. Agree with assessment and plan. Subjective Pt was sitting at bedside in NAD. Pt is in pleasant mood today and despite difficulty with communicating, is without complaints. Pt replied with 'no' to the following: cough, congestion, sore throat, SOB, CP, palpitations, abd pain/discomfort, N/V/D, dizziness, light headedness, and weakness. Pt is eager to return home. Had evening discussion and son at bed side. Family is agreeable for pt to return home with outpatient speech therapy f/u for care. Pt will be returning to a one level living situation where bed, bathroom and kitchen are on the same floor. Son will be able to provide transport. Review of Systems Review of Systems: All systems reviewed & are unremarkable except as noted in Subjective Physical Exam Physical Exam: General: Pt is a 80 y/o WD/WN M in NAD, in bed - at bedside VS: reviewed, remarkable - BP 131/77 Skin: Warm and dry; no lesions or ulcerations Respiratory: Slight d/c in breath sounds on R side, otherwise CTA w/ no additional adventitious sounds. Cardio: RRR, no murmurs Abdomen: Round, normoactive BS x4, nontender to palpation MSK: FROM of extremities, no deformities Extremities: no edema Neuro: A&Ox4 but has difficulty speaking, cooperative Results & Data Results & Data Vital Signs (Past 12 Hours) Vital Signs Temp Pulse Resp BP BP Pulse Ox O2 Del Method 10/23/25 07:55 97.9 F 82 18 154/93 H 100 Room Air 10/22/25 23:00 97.7 F 87 18 155/82 H 98 Room Air PG Care Time/CCT Total # of Minutes Spent Total Time Spent with Patient: Total time spent is greater than 50% in coordination of care (as documented) at patient's floor/unit and/or counseling patient: A total of 90 minutes was spent on patient care to include direct patient contact, discussion with family, review of chart, documentation, and coordination of care. Coding Level of Care Code 28464 SUB INP/OBS CARE 3/50MIN Diagnoses Sepsis A41.9 Altered mental status R41.82 Altered mental status type: unspecified Acute UTI N39.0 Leukocytosis D72.829 Leukocytosis type: unspecified (2) Altered mental status Altered mental status type: unspecified Qualified Code(s): R41.82 - Altered mental status, unspecified (4) Leukocytosis Leukocytosis type: unspecified Qualified Code(s): D72.829 - Elevated white blood cell count, unspecified"
[2025-10-23] MEDS: hydroCHLOROthiazide 25 MG TAB PO SCH (10:01)
[2025-10-23] MEDS: AZITHROMYCIN 250 MG TAB PO ONE (16:21)
[2025-10-24 06:07] LABS: Hematocrit (blood only) 31.6 % (42.0-52.0); Hemoglobin 10.4 g/dL (14.0-18.0); Immature Granulocytes # (auto) 0.05 K/uL (0.01-0.20); Immature Granulocytes % (auto) 0.4 %; Mean Corpuscular Hemoglobin 25.1 pg (25.0-34.0); Mean Corpuscular Volume 76.3 fL (80.0-100.0); Platelet Count 454 K/uL (130-400); RDW Standard Deviation 40.3 fL (36.4-46.3); Red Blood Count 4.14 M/uL (4.70-6.10); White Blood Count 12.55 K/ul (4.8-10.8)
[2025-10-24 06:24] LABS: Anion Gap 10.0 (3-11); Blood Urea Nitrogen 7.0 mg/dl (6-23); Calcium 9.0 mg/dl (8.6-10.3); Carbon Dioxide 23.0 mmol/L (21-32); Chloride 91.0 mmol/L (98-107); Creatinine Clr Calc Pharmacy 61.3 ml/min; Glucose 92.0 mg/dl (70-99(Fasting)); Potassium 3.2 mmol/L (3.5-5.1); Sodium 124.0 mmol/L (136-145)
[2025-10-24 08:51] VITALS: BP 149/80; PULSE 79; RESP 15; TEMP 98.2; O2SAT 98
--- NOTE | 2025-10-24 08:59 | Discharge Summary ---
"Discharge Summary Date of Service October 24, 2025 Principal Dx & Hospital Course #1 = Principal Diagnosis (1) Sepsis: (2) Altered mental status: (3) Acute UTI: (4) Leukocytosis: Plan #Left Temporoparietal Lobe infarct - Patient is a 80 y/o M PMHx COPD, HTN, CKD stage 3a, T2DM and depression who presented to the ED this morning via EMS for evaluation of acute mental status change. Initial Head CT on 10/17 demonstrated cerebral atrophy and small vessel ischemic disease but was without any definite sign of acute or old infarction and without evidence of acute cranial hemorrhage. A Head was additionally done at that time which were w/out evidence of stenosis or aneurysm of the intracranial arteries. 10/17 Neck CTA was w/ suspected severe stenosis of Rt caroted bulb and mild stenosis of the lt carotid bulb and proximal lt ICA. Pt was admitted to the hospital where a 10/19 MRI revealed moderate volume acute infarct of Lt temporoparietal lobe w/ minimal hemorrhagic components in the temporal lobe. Neuology was consulted at that time. Follow-up imaging to include: 10/20 Venous Doppler was w/ no DVT in LE bilat and 10/20 TTE Lt ventricular systolic function in WNL, no significant valvular heart disease. A repeat 10/[address] didn't demonstrate any hemorrhage. Pt was transitioned from ASA to Plavix for future Stroke prevention. Pt was additionally initiated on high-dose Atorvastatin which should be continued out patient. Pt was seen and evaluated by speech therapy who recommend intensive outpatient speech therapy. Pt should follow-up closely with PCP following discharge. #Sepsis | acute UTI - Hx 2 UTIs in past 6 mos; hx urine cultures + Enterococcus and Klebsiella; Most recently discharged from [facility] for urosepsis August, WBC 21 in admission;10/17 Lactate 1.5 -->1.0 10/18; 10/17 UA showing cloudy urine, leuk esterase 3+, >50 WBC, 3-5 RBC, 4+ bacteria; 10/17 Urine Cx w/ E.coli; 10/21 Chlam + GC RNA urine test negative. Pt was given eden on admission which was removed 10/23 w/ resolution of confusion, pt experienced a sucessful voiding trial. Pt should continue Cefuroxime as prescribed. Follow-up with PCP w/in one week of discharge #RML Pneumonia - 10/20 CXR w/ Patchy airspace consolidation in the RML consistent with PNA. Pt was placed on IV Rocephin and Azithromycin initially and then transitioned to PO Cefuroxime and Azithromycin. Pt should complete abx course of both medications and f/u w/ PCP as mentioned above for repeat CXR to ensure resolution. #Altered mental status - RESOLVED, no longer requiring 1:1; 10/18 TSH 0.271; 10/18 Urine Tox Neg; 10/18 B12 255; 10/19 Brain MRI w/ moderate volume acute infarct Lt temporoparietal lobe, with minimal hemorrhagic components in the temporal lobe. Suspect confusion was likely due to sepsis/UTI as above. Vitamin B1 ordered during stay and remains pending. #Hypokalemia - EKG on admission NSR; unable to determine CP, SOB, palpitations d/t acute AMS. Pt should f/u as outpatient for lab f/u. #JOSTIN on CKD stage 3 - RESOLVED; Cr 1.7 on admission (baseline 1.0); likely d/2 dehydration, as patient appeared hypovolemic on exam; No evidence of obstructive uropathy noted during hospitalization #HTN - Continue diltizem, losartan, HCTZ #T2DM - Currently diet controlled, last A1c 09/14/25 - 6.0 Dispo: Home w/ Home Health Services Notes For Next Care Provider NOTE: A large thyroid nodule was seen on Neck CTA 10/17 that was indeterminant in Nature, it is recommended that the patient obtain a thyroid ultrasound, the same test revealed a small irregular opacity in the right lung apex which should be follow-up up upon on outpaitnet CT. Pt will additionally need a repeat CXR for in pneumonia May be worth considering long-term prophylactic ABX for patient, family expressed interest in finding a way to prevent further UTI infections Admission HPI Per Admitting Provider Robbie is a 80 y/o M PMHx COPD, HTN, CKD stage 3a, T2DM and depression who presented to the ED this morning via EMS for evaluation of acute mental status change. Due to mental status, history unable to be obtained from patient. ED provider history obtained by patient's son - I have not been able to contact family, therefore report taken from ED provider. Per son, patient was more tired than baseline last evening and went to bed earlier than usual. Around 0930, patient was found by son to be more confusion, not making sense and slurring his words which prompted them to call EMS. On arrival to ED, stroke alert was activated given patient's symptoms however stroke workup completed and negative. CT head negative for ischemia or acute intracranial hemorrhage. CTA with mild stenosis of right carotid bulb and mild stenosis of left carotid bulb and left ICA. Tele stroke consult not concerned for stroke at this time. ED labs showing CBC with leukocytosis - WBC 21. Na 138, K 3.1. Cr. 1.7 (baseline 1.0). Lactate 1.5 UA showing cloudy urine, leuk esterase 3+, >50 WBC, 3-5 RBC, 4+ bacteria. Patient tachycardic, afebrile, saturating well on RA. Patient will be admitted for med/surg for treatment of altered mental status in the setting of sepsis 2/2 urinary tract infection. ROS was unable to obtain due to patient's mental status. Discharge Plan Discharge Items Patient Disposition: Home - Home Health Services Reason For Visit: ALTERED MENTAL STATUS Discharge Diagnosis: Ischemic Stroke Lt Temporoparietal lobe, occipital lobe, UTI, RML Pneumonia Condition on Discharge: Fair Activity: Per Instructions section Non-emergency contact: Primary Care Provider and Neurologist Call non-emergency contact if: you have any medication questions, your symptoms worsen and you have a fever Follow-up/Referrals: Alfonzo Shaikh MD [Physician] - (Follow-up with patient as appropriate for Lt temporoparietal ischemic stroke w/ residual speech deficits) Mayda De Luna MD [Primary Care Provider] - (Within one week of discharge) Diet: Heart Healthy Addtl Attending Provider Instructions: Hospital Course: You were admitted to the hospital for altered mental status. While you were in the hospital, it was discovered that you experienced an Lt temporoparietal stroke, UTI, and right middle lobe pneumonia. Copies of your imaging results will be attached at your request. Of significant note is a brain MRI on 10/19 that revealed moderate volume acute infarct of Lt temporoparietal lobe w/ minimal hemorrhagic components. Neurology was consulted and recommended a repeat Head CT on 10/21 that did not demonstrate any hemorrhage. An additional lower extremity Doppler and echocardiogram were done which did not reveal acute pathologies. You were then transitioned over to Plavix, as your stroke occurred while you were on aspirin at home. Speech therapy was consulted and recommend that you follow-up with intensive outpatient speech rehabilitation. Occupational and Physical therapy agreed that you are able to safely return home to your previous living situation. You should follow-up with your PCP within one week of discharge. You were additionally found to have a UTI and Pneumonia while you were in the hospital. Urinalysis on admission demonstrated the presence of UTI and a culture was + for E.coli. CXR on 10/20 was w/ patch airspace consolidation consistent with pneumonia. You were started on IV antibiotics and transitioned to oral antibiotics. Discharge Plan: -Please follow-up with your PCP within one week of discharge -Please follow-up with Neurology -Please follow-up with Speech therapy as scheduled -You will be prescribed Plavix, please take as prescribed -You will be prescribed Atorvastatin, please take as prescribed -You will be prescribed Cefuroxime BID for a total of 7 days of therapy -You will be prescribed Azithromycin BID for a total of 5 days of therapy -You should obtain a repeat CXR following your admission to the hospital, which can be discussed with your PCP -You should DISCONTINUE: Aspirin and Rosuvastatin -You can continue to take Iron and Vit D3 OTC as discussed with your PCP IMPORTANT THINGS OF NOTE: -It is recommended that you obtain a follow-up CXR to ensure resolution of PNA -10/17 Neck CTA revealed a large thyroid nodule that was indeterminant in Nature, it is recommended that the patient obtain a thyroid ultrasound -10/17 Neck CTA revealed a small irregular opacity in the right lung apex which should be follow-up up upon on outpaitnet CT Medications: Your medication list has been reviewed and reconciled upon discharge to ensure accuracy and continuity of care. An updated list of all your medications is included with your hospital discharge paperwork. Please review this list closely, and make note of any changes. We sent a new medication called Plavix to your pharmacy. Take daily, this is a blood thinner. We sent a new medication called Atorvastatin to your pharmacy. Take daily, this is a cholesterol reducting medication. We sent a new medication called Azithromycin to your pharmacy. Take 2 times daily, this is an antibiotic. We sent a new medication called Cefuroxime to your pharmacy. Take 2 times daily, this is an antibiotic. Take your medications as instructed; do not skip a dose of your medicines. Make sure all of your doctors know every medicine you are taking (including [id number] medicines, vitamins, and supplements). Call your primary care provider before taking any new medicines (including over- the-counter medicines, vitamins, and supplements), because some of these may interact with your current medications, or may make your symptoms worse. Tell your primary care provider if you cannot afford your medications. Activity: You can do normal everyday activities as your body allows. Take rest breaks if you feel tired. Do not overexert. Stop activity if you have pain, shortness of breath or feel dizzy. Follow-up appointments: Make an appointment with your primary care physician within one week of discharge. A copy of this summary will be sent to them. Every time you see your primary care physician, or any other doctor, bring your medication list, and a list of questions. CONTACT YOUR PRIMARY CARE PROVIDER if you experience any of the following: Shortness of breath or difficulty breathing Fevers or chills Feeling tired with normal activity or experiencing dizziness or fainting Difficulty following your treatment plan, or difficulty taking medications CALL 911 OR GO TO THE EMERGENCY DEPARTMENT if you experience any of the following: Severe abdominal pain or nausea/vomiting Severe chest pain, or chest pain that radiates (moves) to your jaw or arm Sudden, severe shortness of breath or difficulty breathing Thank you for allowing us to participate in your care. Addtl Scientific Software Developer Provider Instructions: RAD REPORTS ENTIRE VISIT Chest X-Ray 10/17/25 10:24 Technique: A frontal view of the chest was obtained Comparison is made to the prior examination dated 04/17/2025 Findings: There are new multifocal alveolar opacities in the right lung, likely due to pneumonia. The heart size is within normal limits. No pleural effusion or pneumothorax is seen. There is no definite pulmonary nodule. No fracture is noted. No foreign body is seen Impression: Right lung pneumonia ACT 112: Positive. There are findings on this exam that require communication between the performing entity and the patient following Patient Test Result Information Act ([place] ACT 112) guidelines. Electronically signed by Loco Cabrera 10-17-2025 12:[address] 10/17/25 10:24 Technique: Axial computed tomography images were obtained of the brain without intravenous contrast. Comparison is made to the prior examination dated 09/13/2025 Findings: There is unchanged cerebral atrophy, within expected limits for the patient's age. Areas of decreased attenuation are seen within the periventricular white matter, likely representing chronic small vessel ischemic disease. There is no definite sign of acute or old infarction. No intracranial hemorrhage is evident. No definite mass lesion is seen on this noncontrast examination. There is no midline shift or other form of herniation. No hydrocephalus is seen. No fracture is identified. The orbits and the visualized paranasal sinuses appear unremarkable. The mastoid air cells appear clear. Impression: 1. 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 Otherwise unremarkable noncontrast CT of the brain Electronically signed by Loco Cabrera 10-17-2025 11:03 AM Head CTA 10/17/25 10:24 Technique: Axial computed tomography images were obtained of the brain after the administration of intravenous contrast according to the CT angiogram protocol Findings: There is calcified plaque within the cavernous and supraclinoid segments of the internal carotid arteries bilaterally, without significant stenosis No definite stenosis or aneurysm is seen of the anterior, middle, or posterior cerebral artery circulations. The basilar artery is patent Impression: No definite stenosis or aneurysm of the intracranial arteries Electronically signed by Loco Cabrera 10-17-2025 11:06 AM Neck CTA 10/17/25 10:24 Technique: Axial computed tomography images were obtained of the neck after the administration of intravenous contrast according to the CT angiogram protocol Findings: This examination is limited by motion artifact No stenosis is seen of the common carotid arteries bilaterally. There is a severe stenosis of the right carotid bulb. There is a mild stenosis of the left carotid bulb and proximal left internal carotid artery. The remainder of the internal carotid arteries appear patent bilaterally. No stenosis of the external carotid arteries is seen There is a mild stenosis of the distal left vertebral artery. No definite stenosis of the right vertebral artery is seen. The visualized thoracic aorta appears unremarkable. There is an approximately 40% stenosis of the proximal left subclavian artery There is an 8 mm irregular nodular opacity in the right lung apex there is a large heterogeneous partially calcified enhancing nodule in the left thyroid lobe Impression: 1. Limited examination due to motion artifact 2. Suspected severe stenosis of the right carotid bulb 3. Mild stenosis of the left carotid bulb and proximal left ICA 4. Mild stenosis of the distal left vertebral artery 5. Large thyroid nodule, indeterminate in nature. A thyroid ultrasound is recommended for further evaluation 6. Small irregular opacity in the right lung apex that could be due to pleural-parenchymal scarring but is indeterminate in nature. A follow-up chest CT could be obtained ACT 112: Positive. There are findings on this exam that require communication between the performing entity and the patient following Patient Test Result Information Act ([place] ACT 112) guidelines. Electronically signed by Loco Cabrera 10-17-2025 11:11 AM Abdomen/Pelvis CT 10/17/25 11:28 Clinical History: Abdominal pain Technique: Axial computed tomography images were obtained of the abdomen and pelvis without intravenous contrast. Comparison is made to the prior CT dated 09/13/2025 Findings: The liver is overall of normal size, attenuation, and contour with no sign of cirrhosis or has been removed unremarkable. There is an unchanged 1.1 cm cyst in the left hepatic lobe. There is unchanged mild bile duct dilatation is noted that is likely due to the postcholecystectomy state. The spleen is of normal size. No focal splenic lesion is evident. The pancreas appears normal with no sign of acute or chronic pancreatitis and no mass lesion noted. The pancreatic duct is of normal caliber. There is an unchanged 1.2 cm right adrenal nodule, likely a benign adenoma. The left adrenal gland appears normal There is excreted contrast within the renal collecting systems bilaterally. There is no hydronephrosis or perinephric stranding. No definite renal mass lesion is identified. There is an unchanged 1.2 cm cyst in the inferior right kidney. The aorta is of normal caliber. There is an unchanged 2 cm masslike soft tissue attenuation area with irregular margins and small foci of calcification in the right paracentral mesentery in the mid abdomen. There is unchanged multifocal haziness of the mesenteric fat. There is a small hiatal hernia. There is no sign of small bowel obstruction. The colon appears unremarkable. The appendix appears to have been removed. No free intraperitoneal fluid or air is identified. There are small left paracentral and right paracentral ventral hernias containing fat. There is some nodularity of the right lower quadrant anterior abdominal wall that could be due to postsurgical scarring. This measures up to 3.2 x 1.5 cm There is excreted contrast filling the urinary bladder. No definite bladder mass lesion is evident. The iliac arteries are of normal caliber. No pelvic adenopathy is noted. There are new multifocal nodular alveolar and groundglass opacities in the right lower lobe, likely due to pneumonia. There is coronary atherosclerosis No fracture is identified. No focal osseous lesion is seen Impression: 1. New right lower lobe pneumonia 2. 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 Unchanged partially calcified irregular masslike area within the mesentery that could be due to scarring or treated malignancy such as carcinoid tumor 4. Unchanged hepatic and right renal cysts 5. Small hiatal hernia 6. Unchanged small right adrenal nodule, likely a benign adenoma 7. Small ventral hernias containing only fat 8. Coronary atherosclerosis 9. Unchanged 3.2 x 1.5 cm nodular soft tissue attenuation area involving the right lower quadrant anterior abdominal wall musculature. This could be due to postsurgical scarring. Desmoid tumor or metastatic disease cannot be excluded ACT 112: Positive. There are findings on this exam that require communication between the performing entity and the patient following Patient Test Result Information Act ([place] ACT 112) guidelines. Electronically signed by Loco Cabrera 10-17-2025 13:51 PM Brain MRI 10/19/25 15:52 CR Exam(s): MRI HEAD Without Contrast EXAM: MR Head Without Intravenous Contrast CLINICAL HISTORY: Reason for exam: Continued Aphasia. OTHER: Other Notes: continued aphasia, PT unable to fully cooperate, screened PT through his Lidia Flores over the phone TECHNIQUE: Magnetic resonance images of the head/brain without intravenous contrast in multiple planes. Moderate motion artifact. COMPARISON: CT/CTA head, same day. FINDINGS: Brain: Moderate volume acute infarct left posterior temporal and parietal lobe, with additional scattered punctate areas of subcortical infarct left frontal lobe. Probable MCA branch vessel territory. Moderate atrophy and mild, chronic, nonspecific white matter disease. No mass effect, or herniation. Small hemorrhagic areas in the left posterior temporal lobe. Ventricles: No hydrocephalus or midline shift. Bones/joints: No acute finding. Soft tissues: No scalp hematoma. Visualized Sinuses: Clear. Mastoid air cells: No mastoid effusion. IMPRESSION: 1. 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 2. No hydrocephalus, midline shift or herniation. 3. Moderate motion artifact. Communications: Verify Receipt Electronically signed by: Rossana Mccabe M.D. 10/19/25 22:13 PM Chest X-Ray 10/20/25 12:48 SINGLE VIEW CHEST CLINICAL HISTORY: Cough FINDINGS: An AP, portable, upright chest radiograph is compared to study dated 10/17/2025. Correlation is made with chest CT dated 02/22/[address] dated 10/17/2025. The heart is enlarged noting atherosclerotic calcification of the thoracic aorta. Patchy airspace consolidation is again seen in the right mid lung. Left lung appears clear. No large pleural effusion or pneumothorax is identified. The skeletal structures are osteopenic. The bony thorax is grossly intact. Cholecystectomy clips are seen in the right upper quadrant. IMPRESSION: 1. Cardiomegaly without radiographic evidence of congestive failure. 2. Patchy airspace consolidation in the right midlung is typical for pneumonia. Continued follow-up to resolution is recommended. ACT 112: Negative or not required by law. Electronically signed by: Brandan Anaya M.D. 10/20/2025 1:53 PM Venous Doppler Study 10/20/25 12:58 EXAM: US Duplex Bilateral Lower Extremities Veins INDICATION: Pain TECHNIQUE: Real-time duplex ultrasound scan of the bilateral lower extremity veins integrating B-mode two-dimensional vascular structure, Doppler spectral analysis, color flow Doppler imaging and compression. COMPARISON: No relevant prior studies available. FINDINGS: Right deep veins: No DVT in the right common femoral, femoral or popliteal veins. The veins demonstrate normal color flow, are normally compressible, with normal phasic flow and/or augmentation response. Right superficial veins: No abnormality noted. No thrombus in the visualized right great saphenous vein. Left deep veins: No DVT in the left common femoral, femoral or popliteal veins. The veins demonstrate normal color flow, are normally compressible, with normal phasic flow and/or augmentation response. Left superficial veins: No abnormality noted. No thrombus in the visualized left great saphenous vein. Soft tissues: No abnormality noted. IMPRESSION: No deep venous thrombosis of either lower extremity. Electronically signed by Leatha Mclaughlin 10-20-2025 2:[address] 10/21/25 11:10 EXAM: CT Head Without Intravenous Contrast INDICATION: Follow-up stroke TECHNIQUE: Axial computed tomography images of the head/brain without intravenous contrast. Sagittal and/or coronal reformats are provided. Sagittal and coronal reformatted images were created and reviewed. This CT exam was performed using one or more of the following dose reduction techniques: automated exposure control, adjustment of the mA and/or kV according to patient size, and/or use of iterative reconstruction technique. COMPARISON: 10/17/2025 FINDINGS: Limitations: None. Brain and extra-axial spaces: There is acute to subacute nonhemorrhagic edema in the left parietal and occipital lobes. No mass effect. Underlying chronic small vessel ischemic change and cortical atrophy. Bones/joints: No acute changes. Soft tissues: No acute abnormality noted. Vasculature: Intracranial atherosclerosis noted. Sinuses: No layering fluid in the visualized portions of the paranasal sinuses. Mastoid air cells: No mastoid effusion. Orbits: No acute abnormality noted. IMPRESSION: Acute to subacute nonhemorrhagic infarct left parietal and occipital lobes. ACT 112: N/A Electronically signed by Leatha Mclaughlin 10-21-2025 13:25 PM 10/17/25 10:24 CT angio head w con Stat CT angio neck with con Stat CT head/brain wo con Stat 10/17/25 11:28 CT abd pelvis wo con Stat 10/19/25 15:52 MRI Brain [MR brain wo con] Urgent 10/20/25 12:58 US venous doppler LE BI Urgent 10/21/25 11:[address] [CT head/brain wo con] Urgent Pending Studies at Discharge: Yes Studies:: Vitamin B1 level Stand-Alone Forms: My [facility] Mineralist, Smoking Cessation Medications and DC Order Prescriptions: New atorvastatin 40 mg Tablet 80 mg PO QAM 30 Days Qty: 60 0RF clopidogrel 75 mg Tablet 75 mg PO QAM 30 Days Qty: 30 0RF cefuroxime axetil 500 mg Tablet 500 mg PO BID 2 Days Qty: 4 0RF azithromycin 250 mg tablet 250 mg PO DAILY Qty: 2 0RF Continued tramadol 50 mg tablet 50 mg PO Q6H PRN (Reason: PAIN/SEVERE PAIN) pantoprazole 40 mg tablet,delayed release (DR/EC) 40 mg PO QAM gabapentin 300 mg Capsule 300 mg PO TID Hold Instructions: Resume on 04/22/25. hydrochlorothiazide 25 mg tablet 25 mg PO QAM Hold Instructions: Resume on 09/22/25. rosuvastatin 5 mg tablet 5 mg PO QAM senna 8.6 mg Capsule 8.6 mg PO BID tamsulosin 0.4 mg capsule 0.4 mg PO DAILY diltiazem HCl 360 mg capsule,extended release 24hr 360 mg PO QAM promethazine 12.5 mg tablet 12.5 mg PO Q6 PRN (Reason: Nausea) hyoscyamine sulfate 0.125 mg tablet 0.125 mg PO TID PRN (Reason: cramping) polyethylene glycol 3350 [Miralax] 17 gram/dose Powder 17 g PO DAILY ondansetron 4 mg tablet,disintegrating 4 mg PO Q8 PRN (Reason: Nausea) lorazepam 1 mg tablet 1 mg PO TID PRN (Reason: Sleep) losartan 100 mg Tablet 100 mg PO DAILY Discontinued aspirin 81 mg Tablet,Delayed Release (Dr/Ec) 81 mg PO DAILY Discharge Orders: Discharge Order (Routine); Ordered 10/24/25 Ordered By: Fabiana Villalba/Other Patient Handouts: Stroke Brain Body Effects, Stroke and Heart Disease, Symptoms of Stroke, Stroke Mood Swings Depression, Stroke Self Care After, Stroke Prevention For Caregiver, Stroke Prevention Eating Healthy, Stroke Prevention Activity Admission Data Admit Date/Time: 10/17/25 15:10 Attending Provider: Ruy Su Admit Provider: Emma Pratt Primary Care Provider: Mayda De Luna Other Providers: Omar Hernandez; Carlos A Hooper; Alfonzo Shaikh Hospital Stay Data Consultations 10/17/25 13:46 ED Decision to Admit Stat 10/17/25 18:12 Consult Urology Routine 10/20/25 10:36 Consult Neurology Routine Diagnostic Imagining Performed Chest X-Ray 10/17/25 10:24 Technique: A frontal view of the chest was obtained Comparison is made to the prior examination dated 04/17/2025 Findings: There are new multifocal alveolar opacities in the right lung, likely due to pneumonia. The heart size is within normal limits. No pleural effusion or pneumothorax is seen. There is no definite pulmonary nodule. No fracture is noted. No foreign body is seen Impression: Right lung pneumonia ACT 112: Positive. There are findings on this exam that require communication between the performing entity and the patient following Patient Test Result Information Act ([place] ACT 112) guidelines. Electronically signed by Loco Cabrera 10-17-2025 12:[address] 10/17/25 10:24 Technique: Axial computed tomography images were obtained of the brain without intravenous contrast. Comparison is made to the prior examination dated 09/13/2025 Findings: There is unchanged cerebral atrophy, within expected limits for the patient's age. Areas of decreased attenuation are seen within the periventricular white matter, likely representing chronic small vessel ischemic disease. There is no definite sign of acute or old infarction. No intracranial hemorrhage is evident. No definite mass lesion is seen on this noncontrast examination. There is no midline shift or other form of herniation. No hydrocephalus is seen. No fracture is identified. The orbits and the visualized paranasal sinuses appear unremarkable. The mastoid air cells appear clear. Impression: 1. 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 Otherwise unremarkable noncontrast CT of the brain Electronically signed by Loco Cabrera 10-17-2025 11:03 AM Head CTA 10/17/25 10:24 Technique: Axial computed tomography images were obtained of the brain after the administration of intravenous contrast according to the CT angiogram protocol Findings: There is calcified plaque within the cavernous and supraclinoid segments of the internal carotid arteries bilaterally, without significant stenosis No definite stenosis or aneurysm is seen of the anterior, middle, or posterior cerebral artery circulations. The basilar artery is patent Impression: No definite stenosis or aneurysm of the intracranial arteries Electronically signed by Loco Cabrera 10-17-2025 11:06 AM Neck CTA 10/17/25 10:24 Technique: Axial computed tomography images were obtained of the neck after the administration of intravenous contrast according to the CT angiogram protocol Findings: This examination is limited by motion artifact No stenosis is seen of the common carotid arteries bilaterally. There is a severe stenosis of the right carotid bulb. There is a mild stenosis of the left carotid bulb and proximal left internal carotid artery. The remainder of the internal carotid arteries appear patent bilaterally. No stenosis of the external carotid arteries is seen There is a mild stenosis of the distal left vertebral artery. No definite stenosis of the right vertebral artery is seen. The visualized thoracic aorta appears unremarkable. There is an approximately 40% stenosis of the proximal left subclavian artery There is an 8 mm irregular nodular opacity in the right lung apex there is a large heterogeneous partially calcified enhancing nodule in the left thyroid lobe Impression: 1. Limited examination due to motion artifact 2. Suspected severe stenosis of the right carotid bulb 3. Mild stenosis of the left carotid bulb and proximal left ICA 4. Mild stenosis of the distal left vertebral artery 5. Large thyroid nodule, indeterminate in nature. A thyroid ultrasound is recommended for further evaluation 6. Small irregular opacity in the right lung apex that could be due to pleural-parenchymal scarring but is indeterminate in nature. A follow-up chest CT could be obtained ACT 112: Positive. There are findings on this exam that require communication between the performing entity and the patient following Patient Test Result Information Act [place] ACT 112) guidelines. Electronically signed by Loco Cabrera 10-17-2025 11:11 AM Abdomen/Pelvis CT 10/17/25 11:28 Clinical History: Abdominal pain Technique: Axial computed tomography images were obtained of the abdomen and pelvis without intravenous contrast. Comparison is made to the prior CT dated 09/13/2025 Findings: The liver is overall of normal size, attenuation, and contour with no sign of cirrhosis or has been removed unremarkable. There is an unchanged 1.1 cm cyst in the left hepatic lobe. There is unchanged mild bile duct dilatation is noted that is likely due to the postcholecystectomy state. The spleen is of normal size. No focal splenic lesion is evident. The pancreas appears normal with no sign of acute or chronic pancreatitis and no mass lesion noted. The pancreatic duct is of normal caliber. There is an unchanged 1.2 cm right adrenal nodule, likely a benign adenoma. The left adrenal gland appears normal There is excreted contrast within the renal collecting systems bilaterally. There is no hydronephrosis or perinephric stranding. No definite renal mass lesion is identified. There is an unchanged 1.2 cm cyst in the inferior right kidney. The aorta is of normal caliber. There is an unchanged 2 cm masslike soft tissue attenuation area with irregular margins and small foci of calcification in the right paracentral mesentery in the mid abdomen. There is unchanged multifocal haziness of the mesenteric fat. There is a small hiatal hernia. There is no sign of small bowel obstruction. The colon appears unremarkable. The appendix appears to have been removed. No free intraperitoneal fluid or air is identified. There are small left paracentral and right paracentral ventral hernias containing fat. There is some nodularity of the right lower quadrant anterior abdominal wall that could be due to postsurgical scarring. This measures up to 3.2 x 1.5 cm There is excreted contrast filling the urinary bladder. No definite bladder mass lesion is evident. The iliac arteries are of normal caliber. No pelvic adenopathy is noted. There are new multifocal nodular alveolar and groundglass opacities in the right lower lobe, likely due to pneumonia. There is coronary atherosclerosis No fracture is identified. No focal osseous lesion is seen Impression: 1. New right lower lobe pneumonia 2. 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 Unchanged partially calcified irregular masslike area within the mesentery that could be due to scarring or treated malignancy such as carcinoid tumor 4. Unchanged hepatic and right renal cysts 5. Small hiatal hernia 6. Unchanged small right adrenal nodule, likely a benign adenoma 7. Small ventral hernias containing only fat 8. Coronary atherosclerosis 9. Unchanged 3.2 x 1.5 cm nodular soft tissue attenuation area involving the right lower quadrant anterior abdominal wall musculature. This could be due to postsurgical scarring. Desmoid tumor or metastatic disease cannot be excluded ACT 112: Positive. There are findings on this exam that require communication between the performing entity and the patient following Patient Test Result Information Act [place] ACT 112) [place]. Electronically signed by Loco Cabrera 10-17-2025 13:51 PM Brain MRI 10/19/25 15:52 CR Exam(s): MRI HEAD Without Contrast EXAM: MR Head Without Intravenous Contrast CLINICAL HISTORY: Reason for exam: Continued Aphasia. OTHER: Other Notes: continued aphasia, PT unable to fully cooperate, screened PT through his Lidia lFores over the phone TECHNIQUE: Magnetic resonance images of the head/brain without intravenous contrast in multiple planes. Moderate motion artifact. COMPARISON: CT/CTA head, same day. FINDINGS: Brain: Moderate volume acute infarct left posterior temporal and parietal lobe, with additional scattered punctate areas of subcortical infarct left frontal lobe. Probable MCA branch vessel territory. Moderate atrophy and mild, chronic, nonspecific white matter disease. No mass effect, or herniation. Small hemorrhagic areas in the left posterior temporal lobe. Ventricles: No hydrocephalus or midline shift. Bones/joints: No acute finding. Soft tissues: No scalp hematoma. Visualized Sinuses: Clear. Mastoid air cells: No mastoid effusion. IMPRESSION: 1. 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 2. No hydrocephalus, midline shift or herniation. 3. Moderate motion artifact. Communications: Verify Receipt Electronically signed by: Rossana Mccabe M.D. 10/19/25 22:13 PM Chest X-Ray 10/20/25 12:48 SINGLE VIEW CHEST CLINICAL HISTORY: Cough FINDINGS: An AP, portable, upright chest radiograph is compared to study dated 10/17/2025. Correlation is made with chest CT dated 02/22/[address] dated 10/17/2025. The heart is enlarged noting atherosclerotic calcification of the thoracic aorta. Patchy airspace consolidation is again seen in the right mid lung. Left lung appears clear. No large pleural effusion or pneumothorax is identified. The skeletal structures are osteopenic. The bony thorax is grossly intact. Cholecystectomy clips are seen in the right upper quadrant. IMPRESSION: 1. Cardiomegaly without radiographic evidence of congestive failure. 2. Patchy airspace consolidation in the right midlung is typical for pneumonia. Continued follow-up to resolution is recommended. ACT 112: Negative or not required by law. Electronically signed by: Brandan Anaya M.D. 10/20/2025 1:53 PM Venous Doppler Study 10/20/25 12:58 EXAM: US Duplex Bilateral Lower Extremities Veins INDICATION: Pain TECHNIQUE: Real-time duplex ultrasound scan of the bilateral lower extremity veins integrating B-mode two-dimensional vascular structure, Doppler spectral analysis, color flow Doppler imaging and compression. COMPARISON: No relevant prior studies available. FINDINGS: Right deep veins: No DVT in the right common femoral, femoral or popliteal veins. The veins demonstrate normal color flow, are normally compressible, with normal phasic flow and/or augmentation response. Right superficial veins: No abnormality noted. No thrombus in the visualized right great saphenous vein. Left deep veins: No DVT in the left common femoral, femoral or popliteal veins. The veins demonstrate normal color flow, are normally compressible, with normal phasic flow and/or augmentation response. Left superficial veins: No abnormality noted. No thrombus in the visualized left great saphenous vein. Soft tissues: No abnormality noted. IMPRESSION: No deep venous thrombosis of either lower extremity. Electronically signed by Leatha Mclaughlin 10-20-2025 2:[address] 10/21/25 11:10 EXAM: CT Head Without Intravenous Contrast INDICATION: Follow-up stroke TECHNIQUE: Axial computed tomography images of the head/brain without intravenous contrast. Sagittal and/or coronal reformats are provided. Sagittal and coronal reformatted images were created and reviewed. This CT exam was performed using one or more of the following dose reduction techniques: automated exposure control, adjustment of the mA and/or kV according to patient size, and/or use of iterative reconstruction technique. COMPARISON: 10/17/2025 FINDINGS: Limitations: None. Brain and extra-axial spaces: There is acute to subacute nonhemorrhagic edema in the left parietal and occipital lobes. No mass effect. Underlying chronic small vessel ischemic change and cortical atrophy. Bones/joints: No acute changes. Soft tissues: No acute abnormality noted. Vasculature: Intracranial atherosclerosis noted. Sinuses: No layering fluid in the visualized portions of the paranasal sinuses. Mastoid air cells: No mastoid effusion. Orbits: No acute abnormality noted. IMPRESSION: Acute to subacute nonhemorrhagic infarct left parietal and occipital lobes. ACT 112: N/A Electronically signed by Leatha Mclaughlin 10-21-2025 13:25 PM 10/17/25 10:24 CT angio head w con Stat CT angio neck with con Stat CT head/brain wo con Stat 10/17/25 11:28 CT abd pelvis wo con Stat 10/19/25 15:52 MRI Brain [MR brain wo con] Urgent 10/20/25 12:58 US venous doppler LE BI Urgent 10/21/25 11:[address] [CT head/brain wo con] Urgent Pending Results Patient Have Any Pending Studies at Discharge: Yes Discharge Instructions Given to Patient (Per Discharging Provider) Hospital Course: You were admitted to the hospital for altered mental status. While you were in the hospital, it was discovered that you experienced an Lt temporoparietal stroke, UTI, and right middle lobe pneumonia. Copies of your imaging results maggie l be attached at your request. Of significant note is a brain MRI on 10/19 that revealed moderate volume acute infarct of Lt temporoparietal lobe w/ minimal hemorrhagic components. Neurology was consulted and recommended a repeat Head CT on 10/21 that did not demonstrate any hemorrhage. An additional lower extremity Doppler and echocardiogram were done which did not reveal acute pathologies. You were then transitioned over to Plavix, as your stroke occurred while you were on aspirin at home. Speech therapy was consulted and recommend that you follow-up with intensive outpatient speech rehabilitation. Occupational and Physical therapy agreed that you are able to safely return home to your previous living situation. You should follow-up with your PCP within one week of discharge. You were additionally found to have a UTI and Pneumonia while you were in the hospital. Urinalysis on admission demonstrated the presence of UTI and a culture was + for E.coli. CXR on 10/20 was w/ patch airspace consolidation consistent with pneumonia. You were started on IV antibiotics and transitioned to oral antibiotics. Discharge Plan: -Please follow-up with your PCP within one week of discharge -Please follow-up with Neurology -Please follow-up with Speech therapy as scheduled -You will be prescribed Plavix, please take as prescribed -You will be prescribed Atorvastatin, please take as prescribed -You will be prescribed Cefuroxime BID for a total of 7 days of therapy -You will be prescribed Azithromycin BID for a total of 5 days of therapy -You should obtain a repeat CXR following your admission to the hospital, which can be discussed with your PCP -You should DISCONTINUE: Aspirin and Rosuvastatin -You can continue to take Iron and Vit D3 OTC as discussed with your PCP IMPORTANT THINGS OF NOTE: -It is recommended that you obtain a follow-up CXR to ensure resolution of PNA -10/17 Neck CTA revealed a large thyroid nodule that was indeterminant in Nature, it is recommended that the patient obtain a thyroid ultrasound -10/17 Neck CTA revealed a small irregular opacity in the right lung apex which should be follow-up up upon on outpaitnet CT Medications: Your medication list has been reviewed and reconciled upon discharge to ensure accuracy and continuity of care. An updated list of all your medications is included with your hospital discharge paperwork. Please review this list closely, and make note of any changes. We sent a new medication called Plavix to your pharmacy. Take daily, this is a blood thinner. We sent a new medication called Atorvastatin to your pharmacy. Take daily, this is a cholesterol reducting medication. We sent a new medication called Azithromycin to your pharmacy. Take 2 times daily, this is an antibiotic. We sent a new medication called Cefuroxime to your pharmacy. Take 2 times daily, this is an antibiotic. Take your medications as instructed; do not skip a dose of your medicines. Make sure all of your doctors know every medicine you are taking (including [id number] medicines, vitamins, and supplements). Call your primary care provider before taking any new medicines (including over- the-counter medicines, vitamins, and supplements), because some of these may interact with your current medications, or may make your symptoms worse. Tell your primary care provider if you cannot afford your medications. Activity: You can do normal everyday activities as your body allows. Take rest breaks if you feel tired. Do not overexert. Stop activity if you have pain, shortness of breath or feel dizzy. Follow-up appointments: Make an appointment with your primary care physician within one week of discharge. A copy of this summary will be sent to them. Every time you see your primary care physician, or any other doctor, bring your medication list, and a list of questions. CONTACT YOUR PRIMARY CARE PROVIDER if you experience any of the following: Shortness of breath or difficulty breathing Fevers or chills Feeling tired with normal activity or experiencing dizziness or fainting Difficulty following your treatment plan, or difficulty taking medications CALL 911 OR GO TO THE EMERGENCY DEPARTMENT if you experience any of the following: Severe abdominal pain or nausea/vomiting Severe chest pain, or chest pain that radiates (moves) to your jaw or arm Sudden, severe shortness of breath or difficulty breathing Thank you for allowing us to participate in your care. Supervising Physician Co-Signing Physician Notes The patient was not seen by me. Chart reviewed. Case discussed with OPAL Crawford. Agree with assessment and plan. Total Time Total Time Spent Total Time Spent (In Minutes): Time spent day of discharge 41 minutes including direct patient care, medication reconciliation, documentation, review of labs and images, and coordination of care. Coding Level of Care Code 31550 INP/OBS DISCH >30 MIN Diagnoses Sepsis A41.9 Altered mental status R41.82 Altered mental status type: unspecified Acute UTI N39.0 Leukocytosis D72.829 Leukocytosis type: unspecified"
[2025-10-24] MEDS: POTASSIUM CHLORIDE CRTAB 20 MEQ TABCR PO STA (09:45)
== END 2025-10-24 11:13 | disposition home health service (06) | DRG 871 ==
LOC: ED 10:07 → SUATTDRO 15:10 → 3E 15:10